=== PATIENT | male | born 1955 | race Caucasian/White ===

== ENCOUNTER 2016-05-08 07:32 | Inpatient (IN) | payer MEDICAID ==
[~2016-05-08] VITALS: Ht 175.3 cm; Wt 99.3 kg
--- NOTE | ~2016-05-08 | HEMODYNAMI ---
PATIENT:SONG MACKENZIE MARY MEDICAL RECORD: [id number] : 57 [facility] [id number] ADMISSION DATE: 05/08/16 Generatedon:05/09/201610:13 Patient name: SONG MACKENZIE Patient #: [id number] SSN: : 1955 Date of study: 05/09/2016 Page: Of Hemodynamic Procedure Report Patient Data Patient Demographics Procedure consent was obtained First Name: SONG Gender: Male Last Name: GURDEEP : 1955 [facility] Initial: MARY Age: 61 year(s) Patient #: [id number] Race: Additional ID: [id number] Contact details [address]: [address] [place] [address] ROAD State: [place] City: [place] Zip code: [address] Past Medical History Allergies Allergen Reaction Date Comments Reported Other 05/09/2016 Codeine,acetaminophen,hydrocodone allergy Admission Admission Data Admission Date: 05/08/2016 Admission Time: 10:30 Admit Source: Emergency Insurance Payor: Private department health insurance Room #: D.2123 Height (in.): 68.9 BSA: 2.17 (m2) Height (cm.): 175 BMI: 33.31 (kg/m2) Weight (lbs.): 224.87 Weight (kg.): 102 Procedure Procedure Types Cath Procedure Diagnostic Procedure C [facility] w/Coronaries Procedure Description Procedure Date Procedure Date: 05/09/2016 Procedure Start Time: 9:53 Procedure End Time: 10:11 Procedure Staff Name Function Brendan Celaya MD Performing Physician Veronica Watson RN Nurse Michael Lloyd RT Monitor Rasheed Alvarez RN Gear Finisher David Laird RT Scrub Procedure Data Cath Procedure Fluoroscopy Diagnostic fluoroscopy Total fluoroscopy Time: 6.9 time: 6.9 min min Diagnostic fluoroscopy Total fluoroscopy dose: 963 dose: 963 mGy mGy Contrast Material Contrast Material Type Amount (ml) Isovue 300 127 Entry Location Entry Primary Successful Side Size Upsize Upsize Entry Closure Mayo ccessful Closure Location (Fr) 1 (Fr) 2 (Fr) Remarks Device Remarks Radial Right 6 Fr Mechanical artery Short Compression Estimated blood loss: 5 ml Diagnostic catheters Device Type Used For End Catheter Placement Terumo 5Fr Marvin 110cm Procedure catheter Terumo 5Fr Jones 110cm Procedure catheter Cordis Infinity 5Fr AR Procedure MOD Catheter Cordis Infinity 5Fr AR 2 Procedure MOD catheter Procedure Complications No complications Procedure Medications Medication Administration Route Dosage Oxygen NC 2 l/min Lidocaine 2% added to field 20 Heparin Flush Bag added to field 2 bags (1000units/500ml NS) 0.9% NaCl I.V. 100 ml/hr Versed I.V. 1 mg Fentanyl I.V. 50 mcg Versed I.V. 1 mg Fentanyl I.V. 50 mcg Radial Cocktail I.A. 1 syringe (Verapomil 2mg/Nitro 400mcg/Heparin 1500units) Versed I.V. 1 mg Fentanyl I.V. 50 mcg Versed I.V. 1 mg Fentanyl I.V. 50 mcg Hemodynamics Rest BSA: 2.17 (m2) O2 Consumption: Estimated: 264.9 (ml/min) O2 Consumption indexed: Estimated:122.07 (ml/min/m) Heart Rate: 82 (bpm) Pressure Samples Time Site Value (mmHg) Purpose Heart Use Rate(bpm) 9:56 LV 48/1,48 Snapshot 99 Gradients Valve Time Site Site Mean SEP/DFP Peak To Heart Use 1 2 (mmHg) (sec/min) Peak Rate (mmHg) (bpm) Aortic 9:57 LV AO 65 Snapshots Pre Cath Intra NCS Post Cath Vital Signs Time Heart Resp SPO2 etCO2 SA7empg NIBP (mmHg) Rhythm Pain Sedation Rate (ipm) (%) (mmHg) (mmHg) Status Level (bpm) 9:15:37 84 14 100 0 0 134/87(102) NSR 0 (11) 10(A) , No pain 9:19:45 83 16 100 0 0 143/90(116) NSR 0 (11) 10(A) , No pain 9:24:30 84 16 99 0 0 144/81(104) NSR 0 (11) 10(A) , No pain 9:28:44 84 14 94 0 0 141/81(128) NSR 0 (11) 10(A) , No pain 9:33:53 83 19 99 0 0 153/73(106) NSR 0 (11) 10(A) , No pain 9:38:11 82 16 99 0 0 134/80(111) NSR 0 (11) 10(A) , No pain 9:42:21 89 19 99 0 0 128/81(106) NSR 0 (11) 10(A) , No pain 9:46:29 84 18 98 0 0 135/78(111) NSR 0 (11) 10(A) , No pain 9:50:39 86 16 98 0 0 137/84(102) NSR 0 (11) 10(A) , No pain 9:54:53 90 16 98 0 0 144/70(88) NSR 0 (11) 9(A) , No pain 9:59:05 88 18 96 0 0 111/78(103) NSR 0 (11) 9(A) , No pain 10:03:11 86 17 95 0 0 116/71(93) NSR 0 (11) 9(A) , No pain 10:07:18 85 16 97 0 0 127/72(89) NSR 0 (11) 9(A) , No pain 10:11:28 84 16 98 0 0 130/76(92) NSR 0 (11) 10(A) , No pain Medications Time Medication Route Dose Verified Delivered Reason Notes Effectiveness by by 9:25:59 Oxygen NC 2 l/min Brendan Buffie for local Yomi Watson RN anesthetic 9:26:12 Lidocaine 2% added 20ml Brendan Buffie for local to vial Yomi Watson RN anesthetic field 9:26:19 Heparin Flush added 2 bags Brendan Buffie used for Bag to Yomi Watson RN procedure (1000units/500ml field NS) 9:26:29 0.9% NaCl I.V. 100 Brendan Buffie Per ml/hr Yomi Watson RN physician 9:50:03 Versed I.V. 1 mg Brendan Buffie for sedation Yomi Watson RN 9:50:10 Fentanyl I.V. 50 mcg Brendan Buffie for sedation Yomi Watson RN 9:54:12 Versed I.V. 1 mg Brendan Buffie for sedation Yomi Watson RN 9:54:16 Fentanyl I.V. 50 mcg Brendan Buffie for sedation Yomi Watson RN 9:54:23 Radial Cocktail I.A. 1 Brendan Brendan for (Verapomil syringe Yomi Celaya MD vasodilation 2mg/Nitro 400mcg/Heparin 1500units) 10:00:01 Versed I.V. 1 mg Brendan Buffie for sedation Yomi Watson RN 10:00:05 Fentanyl I.V. 50 mcg Brendan Buffie for sedation Yomi Watson RN 10:07:02 Versed I.V. 1 mg Brendan Buffie for sedation Yomi Watson RN 10:07:06 Fentanyl I.V. 50 mcg Brendan Buffie for sedation Yomi Watson RN Procedure Log Time Note 8:50:03 Admit Source: Emergency department 8:50:43 Diagnostic Cath status Elective 8:50:48 Rasheed Alvarez RN sent for patient. Start room use. 8:50:50 Time tracking: Regular hours 8:50:55 Plan of Care:Hemodynamics will remain stable., Cardiac rhythm will remain stable., Comfort level will be maintained., Respiratory function will remain adequate., Patient/ family verbilizes understanding of procedure., Procedure tolerated without complication., Recovers from procedure without complications.. 9:04:27 Patient Weight : 224.87 lbs 9:04:39 Patient Height : 68.9 inches 9:05:13 Insurance Payor : Private health insurance 9:06:14 Patient allergic to Other allergyCodeine,acetaminophen,hydrocodone 9:07:04 Lab Result : Hemoglobin 13.5 g/dl 9:07:04 Lab Result : Creatinine 1.1 mg/dl 9:07:19 H&P Date Dictated: 05/08/2016 Within 30 days and on chart.. 9:07:26 Lab results completed and on chart. 9:08:38 Informed consent obtained and on chart 9:08:50 Patient received from Med II to CCL 2 Alert and oriented. Tansferred to table in Supine position. 9:08:51 Warm blankets applied, and cesar hugger turned on for patient comfort. 9:08:52 Correct patient and procedure confirmed by team. 9:08:53 ECG and BP/O2 sat monitors applied to patient. 9:08:55 Pre-procedure instructions explained to patient. 9:08:56 Pre-op teaching completed and patient verbalized understanding. 9:08:58 Family in patients room. 9:09:00 Patient NPO since Midnight. 9:09:02 Is the patient allergic to Iodine/contrast media? No. 9:09:04 Is patient on blood thinner?No 9:09:06 Patient diabetic? No. 9:14:31 Vital chart was started 9:14:33 Baseline sample Acquired. 9:14:37 Rhythm: sinus rhythm 9:14:39 Full Disclosure recording started 9:15:38 ACC The patient was administered the following blood thiners within the last 24 hours: None 9:15:42 Previous problem with sedation/anesthesia? No ? 9:15:43 Snore? Yes 9:15:44 Sleep apnea? No 9:15:45 Deviated septum? No 9:15:46 Opens mouth fully? Yes 9:15:46 Sticks out tongue? Yes 9:15:54 Airway obstruction? Yes Pneumonia 9:16:08 Dentures? No Lost Teeth 9:16:12 Pre procedure: right dorsailis pedis pulse 1+ Palpable, but thready & weak; easily obliterated 9:16:14 Modified Óscar's test Ulnar < 7 seconds 9:16:16 Patient pain scale 0/10 ?. 9:16:21 IV patent on arrival in left antecubital with 0.9% NaCl at O. 9:16:25 Right Radial & Right Groin area was prepped with chlora-prep and draped in sterile fashion 9:16:27 Alarms reviewed by R. N. 9:16:27 Sharps counted by scrub and verified by R.N. 9:16:37 ACC Patient presents with Stable Angina CCS Anginal Class 2--Slight limitation of ordinary activity. 9:18:20 ACCPatient has been prescribed/administered the following anti-anginal medication within the last 2 weeks: None 9:22:37 Use device set Radial Dx 9:22:39 Acist Manifold opened to sterile field. 9:22:39 Acist Hand Control opened to sterile field. 9:22:40 Acist Syringe opened to sterile field. 9:22:41 Cardinal Cath Pack opened to sterile field. 9:22:41 Bag Decanter opened to sterile field. 9:22:42 Terumo 6Fr Slender Glidesheath opened to sterile field. 9:22:42 St [place] 260cm J .035 wire opened to sterile field. 9:22:43 Tegaderm 4 x 4 opened to sterile field. 9:24:17 Cook 21G 4cm Radial Needle opened to sterile field. 9:25:59 Oxygen 2 l/min NC was given by Veronica Watson RN; for local anesthetic; 9:26:12 Lidocaine 2% 20ml vial added to field was given by Veronica Watson RN; for local anesthetic; 9:26:19 Heparin Flush Bag (1000units/500ml NS) 2 bags added to field was given by Veronica Watson RN; used for procedure; 9:26:29 0.9% NaCl 100 ml/hr I.V. was given by Veronica Watson RN; Per physician; 9:31:30 Zero performed for pressure channel P1 9:31:35 Zero performed for pressure channel P1 9:33:21 Physician paged 9:38:05 Baseline sample Acquired. 9:49:04 Physician arrived 9:49:06 --------ALL STOP TIME OUT------ 9:49:07 Final Timeout: patient, procedure, and site verified with staff and physician. All members of the team are in agreement. 9:49:10 Right Radial & Right Groin site verified by team. 9:49:15 Physical assessment completed. ASA score P 2 - A patient with mild systemic disease as per Brendan Celaya MD. 9:49:24 Sedation plan: IV Moderate Sedation Versed, Fentanyl 9:50:03 Versed 1 mg I.V. was given by Veronica Watson RN; for sedation; 9:50:10 Fentanyl 50 mcg I.V. was given by Veronica Watson RN; for sedation; 9:53:22 Procedure started. 9:53:26 Local anesthetic to right radial artery with Lidocaine 2% by Brendan Celaya MD.INITIAL ACCESS ONLY 9:54:12 Versed 1 mg I.V. was given by Veronica Watson RN; for sedation; 9:54:16 Fentanyl 50 mcg I.V. was given by Veronica Watson RN; for sedation; 9:54:23 Radial Cocktail (Verapomil 2mg/Nitro 400mcg/Heparin 1500units) 1 syringe I.A. was given by Brendan Celaya MD; for vasodilation; 9:54:25 A 6 Fr Short sheath was inserted into the Right Radial artery 9:54:31 J wire advanced. 9:54:42 A Terumo 5Fr Marvin 110cm catheter was advanced over the wire and used for Procedure. 9:55:07 LV hemodynamics recorded. 9:55:12 LV gram done using CHAPMAN 9:55:16 Injector settings: Ml/sec: 5, Volume: 15, 9:57:01 EF : 50 % 9:57:38 LCA angiography performed. 9:58:33 Catheter removed. unable to cannulate vessel. 9:59:06 A Terumo 5Fr Jones 110cm catheter was advanced over the wire and used for Procedure. 10:00:01 Versed 1 mg I.V. was given by Veronica Watson RN; for sedation; 10:00:05 Fentanyl 50 mcg I.V. was given by Veronica Watson RN; for sedation; 10:00:47 Catheter removed. unable to cannulate vessel. 10:01:38 A Cordis Infinity 5Fr AR MOD Catheter was advanced over the wire and used for Procedure. 10:03:10 RCA angiography performed. 10:03:47 Catheter exchanged over wire. 10:04:29 Queralttronic Launcher 6Fr EBU 3.5 guide catheter opened to sterile field. 10:04:38 6 Fr ebu 3.5 guide catheter was inserted over the wire 10:05:06 LCA angiography performed. 10:05:34 Catheter exchanged over wire. 10:05:58 A Cordis Infinity 5Fr AR 2 MOD catheter was advanced over the wire and used for Procedure. 10:07:02 Versed 1 mg I.V. was given by Veronica Watson RN; for sedation; 10:07:06 Fentanyl 50 mcg I.V. was given by Veronica Watson RN; for sedation; 10:07:46 RCA angiography performed. 10:08:45 Terumo TR Band Standard opened to sterile field. 10:08:47 Catheter removed. 10:09:01 Sheath removed intact; hemostasis achieved with Mechanical Compression to the Right Radial artery. 10:09:03 Procedure ended.(Physican Out) 10:09:07 Fluoroscopy time 06.90 minutes. 10:09:13 Fluoroscopy dose: 963 mGy 10:09:13 Flurop Dose total: 963 10:09:21 Contrast amount:Isovue 300 127ml. 10:09:23 Sharps counted by scrub and verified by R.N. 10:09:30 TR band inflated with 10cc of air. 10:09:37 Insertion/operative site no bleeding no hematoma. 10:09:46 Post right radial artery:stable, soft, clean and dry 10:09:52 Post Procedure Pulses reassessed and unchanged 10:10:01 Post-procedure physical assessment completed. ASA score P 2 - A patient with mild systemic disease as per Brendan Celaya MD. 10:10:04 Post procedure rhythm: unchanged. 10:10:06 Estimated blood loss: 5 ml 10:10:07 Post procedure instruction explained to patient.Patient verbalizes understanding. 10:10:08 Patient needs reinforcement of post procedure teaching. 10:11:08 Procedure Complication : No complications 10:11:10 Procedure and supply charges have been captured, reviewed, submitted and are correct. 10:11:11 Vital chart was stopped 10:11:12 See physician's report for complete and final results. 10:11:13 Report given to PCU. 10:11:16 Patient transfered to PCU with Stretcher. 10:11:18 Procedure ended. 10:11:18 Full Disclosure recording stopped 10:11:41 End room use (Document Last) Device Usage Item Name Manufacture Quantity Catalog Hospital Part Current Minimal Lot# / Number Charge Number Stock Stock Serial# Code Acist Acist 1 31493 149092 775184 [id number] 5 Manifold [employer] Inc Acist Hand Acist 1 74059 496035 627968 186404 5 Control Medical Systems Inc Acist Acist 1 24562 568869 026606 919334 20 Syringe Medical Systems Inc Cardinal Cardinal 1 [id number] 543086 22491 826994 5 Cath Pack Health Bag Microtek 1 2001S 469539 53779 595968 5 Dec[employer]ocomp [employer] Inc. Terumo 6Fr Terumo 1 [id number] 312603 755483 026240 [address] [place] 1 238557 408979 511325 671061 30 260cm J .035 wire Tegaderm 4 3M 1 1626W 867453 005739 519096 5 x 4 Cook 21G Cook Medical 1 Z24160 476284 196611 5 4cm Radial Needle Terumo 5Fr Terumo 1 40-7769 478720 063246 810048 5 Marvin 110cm catheter Terumo 5Fr Terumo 1 40-7232 062886 836112 337659 5 Jones 110cm catheter Cordis Cardinal 1 [id number] 240222 744146 193267 15 Infinity Health 5Fr AR MOD Catheter Medtronic Medtronic 1 [id number] 524928 03234 964615 3 Launcher 6Fr EBU 3.5 guide catheter Cordis Cardinal 1 [id number] 940118 409391 065760 20 Infinity Health 5Fr AR 2 MOD catheter Terumo TR Terumo 1 [id number] 209097 356380 110494 40 Band Standard Signature Audit [place] Stage Time Signature Unsigned Intra-Procedure 05/09/2016 Michael Lloyd 10:13:42 AM RT(R) Signatures Monitor : Michael Lloyd RT Signature : Date : Time : [place] [id number] [place] [address]
[~2016-05-08 07:32] MED LIST: ABILIFY2 MG PO; AMITRIPTYLINE H50 MG PO; AUGMENTIN 500-11 TA1 PO; BACLOFEN10 MG PO; BUPROPION XL150 MG PO; CARAFATE1 G PO; DULCOLAX5 MG PO; HYDROCODONE-APA1 TAB PO; LEVSIN/ANASP0.125 MG PO; MIRALAX527 GM PO; MOBIC7.5 MG PO; NEURONTIN 400400 MG PO; OXYCODONE HCL5 MG PO; PAMELOR 25 MG C25 MG PO; PROAIR HFA8.5 GM INH; PROTONIX40 MG PO; VALISONE 0.1 %15 GM TOPICAL; VITAMIN D5000 UNIT PO; ZOFRAN4 MG PO; ZYLOPRIM300 MG PO
[2016-05-08 08:31] LABS: BASOPHILS 0.5 % (0.0-2.0); EOSINOPHILS 4.8 % (0-7); HEMATOCRIT 42.6 % (42.0-54.0); HEMOGLOBIN 14.3 g/dL (13.5-17.5); IMMATURE GRANULOCYTES 0.2 % (0-5); LYMPHOCYTES 21.8 % (15-50); MCH 28.7 pg (26.0-34.0); MCHC 33.6 g/dL (31.0-37.0); MCV 85.4 fL (80.0-100.0); MEAN PLATELET VOLUME 11.6 fL (7.4-10.4); MONOCYTES 7.1 % (2-11); NEUTROPHILS 65.6 % (40-80); PLATELET COUNT 165 10x3/uL (130-400); RBC 4.99 10x6/uL (4.20-6.10); RDW 13.4 % (11.5-14.5); WBC 5.8 10x3/uL (4.8-10.8)
[2016-05-08 08:56] LABS: ALBUMIN 3.8 g/dL (3.4-5.0); ALKALINE PHOSPHATASE 63 U/L (46-116); ALT (SGPT) 60 U/L (10-68); CALC OSMOLALITY 276 mosm/kg (275-300); CALCIUM 9.4 mg/dL (8.5-10.1); CARBON DIOXIDE 30.7 mmol/L (21.0-32.0); CHLORIDE - SERUM 103 mmol/L (98-107); CREATININE - SERUM 1.3 mg/dL (0.6-1.3); GLUCOSE 95 mg/dL (74-106); POTASSIUM - SERUM 3.9 mmol/L (3.5-5.1); PROTEIN - SERUM 6.9 g/dL (6.4-8.2); SODIUM 139 mmol/L (136-145); UREA NITROGEN 11 mg/dL (7-18); eGFR NON AFRICAN AMERICAN 60 mL/min (90-120)
[2016-05-08 09:06] LABS: CKMB 1.4 U/L (0.0-3.6); CREATINE KINASE 111 UL (21-232)
[2016-05-08 09:07] LABS: TROPONIN-I < 0.017 ng/mL (0.000-0.060)
--- NOTE | 2016-05-08 11:00 | NUR ---
PT ARRIVED TO ROOM. ORIENTED TO ROOM/FLOOR AND SITUATION. PT ALERT AND ORIENTED. RR NONLABORED ON RA. VSS. WILL BEGIN ADMISSION WORKUP AND ORDERS.
[2016-05-08] MEDS ORDERED: FISH OIL 1,0001 CA1 PO (11:50)
[2016-05-08] MEDS ORDERED: MOBIC7.5 MG PO (11:50)
[2016-05-08 11:51] VITALS: BP 136/82; Ht 175.3 cm; Wt 99.3 kg
--- NOTE | 2016-05-08 12:01 | NUR ---
TELEMETRY APPLIED AND BEING MONITERED. CURRENTLY 70 NORMAL SINUS. L.AC PIV WIHT DRSG CDI AND SWAB CAPS IN USE. NO CURRENT NEEDS AT THIS TIME. AT BEDSIDE. WILL CPOC.
[2016-05-08 12:05] VITALS: BP 136/82
[2016-05-08 14:24] LABS: CKMB 1.1 U/L (0.0-3.6); CREATINE KINASE 83 UL (21-232); TROPONIN-I < 0.017 ng/mL (0.000-0.060)
[2016-05-08 15:55] LABS: ANION GAP 11.3 mmol/L (8-16); CALCIUM 9.4 mg/dL (8.5-10.1); CARBON DIOXIDE 27.7 mmol/L (21.0-32.0); CREATININE - SERUM 1.1 mg/dL (0.6-1.3)
[2016-05-08 16:00] VITALS: BP 125/81
[2016-05-08 16:07] LABS: BASOPHILS 0.6 % (0.0-2.0); EOSINOPHILS 3.4 % (0-7); HEMATOCRIT 40.9 % (42.0-54.0); HEMOGLOBIN 13.5 g/dL (13.5-17.5); IMMATURE GRANULOCYTES 0.4 % (0-5); LYMPHOCYTES 23.8 % (15-50); MCH 28.4 pg (26.0-34.0); MCV 85.9 fL (80.0-100.0); MEAN PLATELET VOLUME 11.4 fL (7.4-10.4); MONOCYTES 7.3 % (2-11); NEUTROPHILS 64.5 % (40-80); PLATELET COUNT 163 10x3/uL (130-400); RBC 4.76 10x6/uL (4.20-6.10); RDW 13.5 % (11.5-14.5); WBC 5.3 10x3/uL (4.8-10.8)
--- NOTE | 2016-05-08 16:17 | NUR ---
INITIATED PTS IVPB ZOSYN INFUSING VIA L.AC PIV WITH DRSG CDI AND SWAB CAPS IN USE. PT C/O CHEST PAIN DULL ACHING REQUESTING AND PROVIDED WITH PRN MORPHINE. EKG COMPLETED AND RESULTED NORMAL SINUS. PT LYING BACK IN BED RESTING QUIETLY AND DENIES ANY FURTHER NEEDS AT THIS TIME. CL IN REACH. WILL CPOC.
--- NOTE | 2016-05-08 19:03 | NUR ---
SITTING UP IN BED, AAOX3, SKIN WARM AND DRY, RESP UNLABORED, IV PATENT TO LEFT AC, DENIES NEEDS
[2016-05-08 19:56] VITALS: BP 118/71
[2016-05-08 20:46] LABS: CKMB 0.9 U/L (0.0-3.6); CREATINE KINASE 60 UL (21-232)
[2016-05-08 20:48] LABS: TROPONIN-I < 0.017 ng/mL (0.000-0.060)
[2016-05-09] VITALS: BP 106/52
--- NOTE | 2016-05-09 01:31 | NUR ---
LYING IN BED, CALL LIGHT IN REACH. WILL CONTINUE WITH PLAN OF CARE.
[2016-05-09 04:00] VITALS: BP 135/75
[2016-05-09 05:37] LABS: CKMB 0.6 U/L (0.0-3.6); CREATINE KINASE 54 UL (21-232)
--- NOTE | 2016-05-09 05:39 | NUR ---
RESTING QUIETLY IN BED, NO DISTRESS NOTED
[2016-05-09 05:40] LABS: TROPONIN-I < 0.017 ng/mL (0.000-0.060)
[2016-05-09 08:00] VITALS: BP 123/81
--- NOTE | 2016-05-09 08:38 | NUR ---
CATH CALLED TO PRE-OP PT. PREOP MEDS GIVEN. PT RESTING QUIETLY IN BED WITH FAMILY AT BEDSIDE. CL IN REACH. WILL CTM.
--- NOTE | 2016-05-09 09:09 | NUR ---
PT LEAVING FOR MIXER PIGMENT NOW. AT BEDSIDE.
--- NOTE | 2016-05-09 10:45 | NUR ---
PT BACK FROM THERAPY ASSISTANT. VSS. TR BAND TO R.RADIAL AIR INFLATED @10CC. NO S/S OF BLEEDING NOTED. INITIATED PTS IVPB ZOSYN INFUSING OVER 30 MINS VIA L.AC PIV WITH DRSG CDI AND SWAB CAPS IN USE. PT WOULD LIKE TO EAT AND WAS PROVIDED WITH FINGER FOODS. PT RESTING AND DENIES ANY CURRENT PAIN OR NEEDS. WILL CTM.
--- NOTE | 2016-05-09 10:58 | NUR ---
PT REFUSED SCDS R/T HIM BEING AMBULATORY.
[2016-05-09 12:00] VITALS: BP 120/67
--- NOTE | 2016-05-09 12:00 | NUR ---
ATTEMPTED TO REMOVE HALF OF TR BAND AIR PER PROTOCOL AFTER WAITING 1HR POST PROCEDURE. PT STARTED TO BLEED IMMEDIATELY, REPLACED AIR TO TR BAND AND WILL TRY AGAIN IN 15 MINS PER PROTOCOL.
--- NOTE | 2016-05-09 13:21 | NUR ---
SUCCESSFULLY REMOVED HALF AIR FROM R.WRIST TR BAND. 5CC OUT AND NO S/S OF BLEEDING OR HEMATOMA NOTED. WILL REMOVED REST OF AIR IN 15 MINS.
--- NOTE | 2016-05-09 14:00 | NUR ---
REMOVED OTHER HALF OF AIR FROM R.WRIST TR BAND. NO S/S OF BLEEDING OR HEMATOMA NOTED. PT LYING BACK IN BED RESTING QUIETLY. VSS. PERIPHERAL PULSES INTACT. NO FURTHER NEEDS AT THIS TIME.
--- NOTE | 2016-05-09 15:38 | NUR ---
PT REQUESTED AND WAS PROVIDED WITH PRN PAIN MED VIA L.AC PIV SITE. PT IS RESTING QUIETLY IN BED C/O HEADACHE. ALSO PROVIDED PT WITH SANDWICH TRAY REQUESTED. NO FURTHER NEEDS AT THIS TIME. R.WRIST BANDAID CDI NO S/S OF BLEEDING OR HEMATOMA NOTED. PERIPHERAL PULSES INTACT AND VSS. WILL CPOC.
[2016-05-09 16:00] VITALS: BP 151/72
--- NOTE | 2016-05-09 20:00 | NUR ---
PT RESTING IN BED. ALERT/ORIENTED. VOICING NO NEEDS. ASSESSMENT COMPLETED. SALINE LOCK TO LEFT A/C. SR PER TELEMETRY. NONLABORED RESIRATIONS ON ROOM AIR. REVIEW PLAN OF CARE.
[2016-05-09 21:18] VITALS: BP 123/72
[2016-05-10 01:12] VITALS: BP 136/74
--- NOTE | 2016-05-10 01:45 | NUR ---
REPORTS GENERALIZED PAIN AND DISCOMFORT. MEDICATED WITH MORPHINE SIVP. MONITOR RESPONSE.
--- NOTE | 2016-05-10 04:40 | NUR ---
RESTING WITH NO DISTRESS. IVF INFUSING, IV ZOSYN NOW UP AND INFUSING. CPOC.
[2016-05-10 05:01] VITALS: BP 131/75
[2016-05-10 07:26] VITALS: BP 125/90
[2016-05-10 12:04] VITALS: BP 127/79
--- NOTE | 2016-05-10 12:53 | NUR ---
PT C/O GENERALIZED PAINS ALL OVER ALONG WITH NAUSEA. PROVIDED PT WITH PRN MORPHINE AND ZOFRAN. PT LYING BACK IN BED RESTING QUIETLY WATCHING TV AND VOICED THANKS. CL IN REACH. PT DENIES ANY FURTHER NEEDS AT THIS TIME. WILL CPOC.
[2016-05-10 16:00] VITALS: BP 134/81
--- NOTE | 2016-05-10 19:16 | NUR ---
PT REQUESTED AND WAS PROVIDED WITH PRN PAIN MEDICATION. PT RESTING QUIETLY IN BED RECEIVING BREATHING TX. NO FURTHER NEEDS AT THIS TIME.
[2016-05-10 20:25] VITALS: BP 132/68
[2016-05-11 00:41] VITALS: BP 128/72
[2016-05-11 05:48] VITALS: BP 126/70
--- NOTE | 2016-05-11 07:22 | NUR ---
PT SITTING UP IN BED PIV IN LEFT FA PULLED OUT WITH CATHETER TIP INTACT. WILL RESITE. PT DENIES OTHER NEEDS WILL CONT TO MONITOR.
[2016-05-11 08:00] VITALS: BP 118/77
--- NOTE | 2016-05-11 09:52 | NUR ---
RESITED PT TO R HAND 22G X2 STICKS. SIGNED AND DATED.
[2016-05-11 12:00] VITALS: BP 127/69
[2016-05-11 13:12] LABS: BASOPHILS 0.8 % (0.0-2.0); EOSINOPHILS 6.8 % (0-7); HEMATOCRIT 42.1 % (42.0-54.0); HEMOGLOBIN 13.6 g/dL (13.5-17.5); LYMPHOCYTES 33.3 % (15-50); MCH 28.3 pg (26.0-34.0); MCHC 32.3 g/dL (31.0-37.0); MCV 87.5 fL (80.0-100.0); MONOCYTES 7.8 % (2-11); NEUTROPHILS 51.3 % (40-80); PLATELET COUNT 162 10x3/uL (130-400); RBC 4.81 10x6/uL (4.20-6.10); RDW 13.9 % (11.5-14.5)
[2016-05-11 13:26] LABS: ANION GAP 10.8 mmol/L (8-16); CALCIUM 8.9 mg/dL (8.5-10.1); CARBON DIOXIDE 29.2 mmol/L (21.0-32.0); CREATININE - SERUM 1.2 mg/dL (0.6-1.3)
[2016-05-11 16:27] VITALS: BP 122/81
--- NOTE | 2016-05-11 18:14 | NUR ---
PT SITTING UP IN BED DENIES NEEDS WILL CONT TO MONITOR.
--- NOTE | 2016-05-11 20:00 | NUR ---
PT RESING IN BED. NO DISTRESS. NONLABORED RESPIRATIONS ON ROOM AIR. SR PER TELEMETRY. SALINE LOCK TO RIGHT WRIST. CPOC.
[2016-05-11 20:15] VITALS: BP 142/81
[2016-05-12 00:23] VITALS: BP 118/81
[2016-05-12 04:20] VITALS: BP 131/84
--- NOTE | 2016-05-12 07:30 | NUR ---
RESTING QUIETLY RESP UNLABORED C/O CHEST PAIN 01/21 WILL CONTINUE TO MONITOR
[2016-05-12 08:00] VITALS: BP 131/78
--- NOTE | 2016-05-12 09:37 | NUR ---
STATES CHEST PAIN 9 AT THIS TIME
--- NOTE | 2016-05-12 10:12 | NUR ---
MEDICATED WITH 4 MG MORPHINE SIVP TORT WRIST SALINE LOCK FOR CHEST PAIN 01/21
--- NOTE | 2016-05-12 10:13 | NUR ---
PT STATES CHEST PAIN 5/10
[2016-05-12 12:00] VITALS: BP 138/94
[2016-05-12] MEDS ORDERED: AUGMENTIN 875-11 TAB PO (13:18)
--- NOTE | 2016-05-12 15:25 | NUR ---
REVIEWED DISCHARGE INSTRUCTIONS PT AND STATE UNDERSTANDING COPY GIVEN TO PER HUSBANDS REQUEST SALINE LOCK DCD TO RT WRIST WITH 22 GA IV CATHETER INTACT SITE FREE OF REDNESS OR EDEMA PT TOLERATED WELL
--- NOTE | 2016-05-12 15:30 | NUR ---
PT DISCHARGED HOME LEFT UNIT IN STABLE CONDITION WITH ALL PERSONAL BELONGINGS
--- NOTE | 2016-05-22 13:15 | EC ---
PATIENT:SONG MACKENZIE DATE OF SERVICE: 05/08/16 SEX: M MEDICAL RECORD: [id number] DATE OF : [birth year] LOCATION:D. D.212 AGE OF PATIENT: 61 ADMISSION DATE: 05/08/16 REFERRING PHYSICIAN: INTERPRETING PHYSICIAN: GUZMAN CASAS M.D. ECHOCARDIOGRAM REPORT ECHO CHARGES 4 ECHO COMPLETE CLINICAL DIAGNOSIS: DYSPNEA ECHOCARDIOGRAPHIC MEASUREMENTS (adult normal given) AC root (d.<3.7cm) 3.4 LV Septum d (<1.2 cm> 1.5 Valve Excursion 2.4 LV Septum (systole) 2.1 Left Atria (s.<4.0cm> 4.1 LVPW d(<1.2cm) 1.3 RV (d.<2.3cm) 3.3 LVPW (sytole) 1.8 LV diastole(<5.6CM) 6.0 MV E-F(>70mm/sec) LV systole 4.0 LVOT Diameter 2.1 MV exc.(>10mm) Est.ejection fraction (50-75%) Pericardial Effusion N DOPPLER: LVIT A 40.0 E 53.0 LA RVSP 33.0 LVOT 110 AOP1/2T Asc. Ao 114 RVOT 46.0 RA PA 72.0 AV Gradient Peak 5.2 AV Mean 2.5 AV Area 3.2 MV Gradient Peak 1.8 MV Mean 0.64 MV Area COMMENTS: Dye Colorist Formulator: Ankit TALAVERAOE Mangle Catcher:1 Dr. Franklin TAPE# PACS DATE OF SERVICE: 05/08/2016 REFERRING PHYSICIAN: Dr. Laxmi Simmons. INDICATION: Dyspnea. DESCRIPTION: Left ventricle is mildly dilated. Left ventricular hypertrophy is present. Systolic function is well preserved. Estimated ejection fraction is 55% to 60%. Mitral valve is structurally normal. There is mild regurgitation noted. Left atrium is mildly dilated. The aortic valve is trileaflet. There ECHOCARDIOGRAM REPORT [id number] SONG MACKENZIE is no stenosis or regurgitation seen. Right ventricle is mildly dilated. Tricuspid valve is normal. There is mild regurgitation seen. Right ventricular systolic pressure is mildly elevated at 33 mmHg. There is no pericardial effusion noted. IMPRESSION: 1. Left ventricular hypertrophy with preserved ejection fraction of 55-60%. 2. Mild mitral regurgitation. 3. Mild tricuspid regurgitation with elevated pulmonary pressures. TRANSINT:[id number] Voice Confirmation ID: [id number] DOCUMENT ID: [id number] GUZMAN CASAS M.D. at 1315 CC: [id number] DICTATION DATE: 05/09/16 1200 [place] CLOSER: 05/09/16 1616 DIS IN 05/12/16 [place] [id number] [place] [id number]
--- NOTE | 2016-05-22 13:15 | OP ---
PATIENT NAME: SONG MACKENZIE MEDICAL RECORD: [id number] :57 LOCATION:D.M2 D.2123 ADMISSION DATE:05/08/16 SURGEON: GUZMAN CASAS M.D. DATE OF OPERATION: 05/09/2016 REFERRING PHYSICIAN: Laxmi Simmons MD PROCEDURES PERFORMED: 1. Selective coronary angiography. 2. Left heart catheterization with ventriculogram. INDICATION: A 61-year-old gentleman who presents with symptoms of accelerating angina. EQUIPMENT USED: A 5-Omani EBU 3.5 guide, AR2 catheter, Marvin catheter. TECHNIQUE: A 6-Omani sheath was inserted in retrograde fashion in the right radial artery. Next, selective coronary angiography was performed in standard views using 5-Omani EBU 3.5 guide for the left main and AR2 for the right coronary artery. Left heart catheterization performed using a Marvin catheter. CORONARY ANATOMY: 1. Left main: Left main trunk is large in caliber. It gives rise to the LAD and circumflex. It is a smooth-walled vessel and angiographically normal. 2. LAD: This is a moderate caliber vessel extending to the apex. It has mild irregularities throughout its course, but nothing worse than 20%. 3. Circumflex: This vessel is large in caliber. It provides the lateral branch in mid segment. The circumflex and lateral branch are smooth-walled vessels and angiographically normal. 4. Right coronary: This vessel is large in caliber and dominant. It provides the PDA and distal segment. This vessel is smooth-walled and angiographically normal. 5. Left ventricle: Left ventricle is normal in size and function. No wall motion abnormalities are seen. Estimated ejection fraction is 55%. IMPRESSION: 1. Mild coronary artery disease, which appears unchanged from his previous cardiac catheterization. 2. Normal left ventricular function. RECOMMENDATIONS: We will continue current medical management. TRANSINT:[id number] Voice Confirmation ID: [id number] DOCUMENT ID: [id number] GUZMAN CASAS M.D. at 1315 CC: [id number] DICTATION DATE: 05/09/16 1013 CLAIM ATTORNEY: 05/09/16 1048 DIS IN 05/12/[address] [address]
== END 2016-05-12 15:30 | disposition home or self-care (01) | DRG 286 ==
LOC: D.ER 07:32 → D.M2 10:30
PROVIDERS: Emergency Medicine; Internal Medicine Cardiovascular Disease; ADMIT Family Medicine
PROC: B2151ZZ Fluoroscopy of Left Heart using Low Osmolar Contrast (ICD-10-PCS; 2016-05-09)
PROC: 4A023N7 Measurement of Cardiac Sampling and Pressure, Left Heart, Percutaneous Approach (ICD-10-PCS; 2016-05-09)
PROC: B2111ZZ Fluoroscopy of Multiple Coronary Arteries using Low Osmolar Contrast (ICD-10-PCS; principal; 2016-05-09 08:00)
DX: I25.10 Atherosclerotic heart disease of native coronary artery without angina pectoris (principal); J18.9 Pneumonia, unspecified organism; F41.9 Anxiety disorder, unspecified; I10 Essential (primary) hypertension; G89.29 Other chronic pain; M54.9 Dorsalgia, unspecified

== ENCOUNTER 2016-05-13 03:32 | Emergency (ER) | payer MEDICAID ==
[2016-05-08 11:51] VITALS: BMI 33.3
[~2016-05-13 03:32] MED LIST changes: +AUGMENTIN 875-11 TAB PO; +FISH OIL 1,0001 CA1 PO
[2016-05-13 04:21] LABS: BASOPHILS 0.9 % (0.0-2.0); HEMATOCRIT 45.8 % (42.0-54.0); HEMOGLOBIN 15.3 g/dL (13.5-17.5); IMMATURE GRANULOCYTES 0.4 % (0-5); LYMPHOCYTES 14.6 % (15-50); MCH 28.7 pg (26.0-34.0); MCHC 33.4 g/dL (31.0-37.0); MCV 85.8 fL (80.0-100.0); MEAN PLATELET VOLUME 11.1 fL (7.4-10.4); MONOCYTES 8.4 % (2-11); NEUTROPHILS 67.7 % (40-80); PLATELET COUNT 185 10x3/uL (130-400); RBC 5.34 10x6/uL (4.20-6.10); RDW 13.6 % (11.5-14.5); WBC 7.4 10x3/uL (4.8-10.8)
[2016-05-13 04:34] LABS: ALKALINE PHOSPHATASE 86 U/L (46-116); ALT (SGPT) 122 U/L (10-68); BILIRUBIN - TOTAL 0.85 mg/dL (0.2-1.3); CALC OSMOLALITY 278 mosm/kg (275-300); CALCIUM 9.4 mg/dL (8.5-10.1); CARBON DIOXIDE 28.3 mmol/L (21.0-32.0); CHLORIDE - SERUM 103 mmol/L (98-107); CREATININE - SERUM 1.2 mg/dL (0.6-1.3); GLUCOSE 120 mg/dL (74-106); PROTEIN - SERUM 7.2 g/dL (6.4-8.2); SODIUM 139 mmol/L (136-145); eGFR NON AFRICAN AMERICAN 66 mL/min (90-120)
[2016-05-13 04:43] LABS: UREA NITROGEN 13 mg/dL (7-18)
[2016-05-13 04:45] LABS: CHOL - HDL RATIO 4.3 ratio (2.3-4.9); CHOLESTEROL, TOTAL 185 mg/dL (0-200); CKMB 1.8 U/L (0.0-3.6); CREATINE KINASE 119 UL (21-232); HDL CHOLESTEROL 43 mg/dL (32-96); LDL CHOLESTEROL 120 mg/dL (0-100); LDL-HDL RATIO 2.8 ratio (1.5-3.5); TRIGLYCERIDE 113 mg/dL (30-200)
[2016-05-13 04:52] LABS: TROPONIN-I < 0.017 ng/mL (0.000-0.060)
== END 2016-05-13 06:33 | disposition home or self-care (01) ==
LOC: D.ER 03:32
PROVIDERS: Family Medicine
DX: R07.9 Chest pain, unspecified (principal); K21.9 Gastro-esophageal reflux disease without esophagitis; I10 Essential (primary) hypertension; K58.9 Irritable bowel syndrome, unspecified; I45.10 Unspecified right bundle-branch block

== ENCOUNTER 2016-07-14 10:05 | Emergency (ER) | payer MEDICAID ==
[2016-05-08 11:51] VITALS: BMI 33.3
[2016-07-14 10:59] LABS: BASOPHILS 0.9 % (0.0-2.0); HEMATOCRIT 44.8 % (42.0-54.0); HEMOGLOBIN 14.9 g/dL (13.5-17.5); IMMATURE GRANULOCYTES 0.2 % (0-5); LYMPHOCYTES 30.1 % (15-50); MCHC 33.3 g/dL (31.0-37.0); MCV 84.2 fL (80.0-100.0); MEAN PLATELET VOLUME 11.5 fL (7.4-10.4); MONOCYTES 9.8 % (2-11); PLATELET COUNT 168 10x3/uL (130-400); RBC 5.32 10x6/uL (4.20-6.10); RDW 13.2 % (11.5-14.5); WBC 4.4 10x3/uL (4.8-10.8)
[2016-07-14 11:01] LABS: ALKALINE PHOSPHATASE 87 U/L (46-116); ALT (SGPT) 65 U/L (10-68); BILIRUBIN - TOTAL 0.62 mg/dL (0.2-1.3); CALC OSMOLALITY 280 mosm/kg (275-300); CALCIUM 9.3 mg/dL (8.5-10.1); CARBON DIOXIDE 30.4 mmol/L (21.0-32.0); CHLORIDE - SERUM 105 mmol/L (98-107); CREATININE - SERUM 1.1 mg/dL (0.6-1.3); GLUCOSE 112 mg/dL (74-106); POTASSIUM - SERUM 4.1 mmol/L (3.5-5.1); PROTEIN - SERUM 7.1 g/dL (6.4-8.2); SODIUM 140 mmol/L (136-145); UREA NITROGEN 15 mg/dL (7-18); eGFR NON AFRICAN AMERICAN 72 mL/min (90-120)
[2016-07-14 11:12] LABS: CHOLESTEROL, TOTAL 166 mg/dL (0-200); CKMB 2.9 U/L (0.0-3.6); CREATINE KINASE 138 UL (21-232); HDL CHOLESTEROL 42 mg/dL (32-96); LDL CHOLESTEROL 103 mg/dL (0-100); LDL-HDL RATIO 2.5 ratio (1.5-3.5); TRIGLYCERIDE 108 mg/dL (30-200)
[2016-07-14 11:13] LABS: TROPONIN-I < 0.017 ng/mL (0.000-0.060)
== END 2016-07-14 15:06 | disposition home or self-care (01) ==
LOC: D.ER 10:05
PROVIDERS: Emergency Medicine
DX: R07.9 Chest pain, unspecified (principal); B02.9 Zoster without complications; K21.9 Gastro-esophageal reflux disease without esophagitis; K58.9 Irritable bowel syndrome, unspecified; F12.90 Cannabis use, unspecified, uncomplicated

== ENCOUNTER 2017-09-14 09:21 | Emergency (ER) | payer MEDICARE ==
[2016-05-08 11:51] VITALS: BMI 33.3
[2017-09-14 10:00] LABS: BASOPHILS 0.6 % (0-2); EOSINOPHILS 3.8 % (0-7); HEMATOCRIT 44.4 % (42.0-54.0); HEMOGLOBIN 15.3 g/dL (13.5-17.5); IMMATURE GRANULOCYTES 0.1 % (0-5); LYMPHOCYTES 21.8 % (15-50); MCH 28.5 pg (26.0-34.0); MCHC 34.5 g/dL (31.0-37.0); MCV 82.7 fL (80.0-100.0); MEAN PLATELET VOLUME 11.2 fL (7.4-10.4); MONOCYTES 5.4 % (2-11); NEUTROPHILS 68.3 % (40-80); PLATELET COUNT 162 10x3/uL (130-400); RBC 5.37 10x6/uL (4.20-6.10); RDW 13.4 % (11.5-14.5); WBC 6.8 10x3/uL (4.8-10.8)
[2017-09-14 10:17] LABS: ANION GAP 11.9 mmol/L (8-16); BILIRUBIN - TOTAL 0.91 mg/dL (0.2-1.3); CALCIUM 9.5 mg/dL (8.5-10.1); CREATININE - SERUM 1.1 mg/dL (0.6-1.3); POTASSIUM - SERUM 3.9 mmol/L (3.5-5.1); PROTEIN - SERUM 7.7 g/dL (6.4-8.2)
[2017-09-14 13:36] LABS: APPEARANCE CLEAR (CLEAR); BILIRUBIN NEGATIVE (NEGATIVE); COLOR YELLOW (YELLOW); GLUCOSE NEGATIVE (NEGATIVE); KETONE NEGATIVE (NEGATIVE); NITRITE NEGATIVE (NEGATIVE); PROTEIN NEGATIVE (NEGATIVE); SPECIFIC GRAVITY 1.015 (1.005-1.020); UROBILINOGEN NORMAL (NORMAL)
[2017-09-14 13:37] LABS: BACTERIA FEW /hpf (NONE SEEN); EPITHELIAL CELLS 0-5 /hpf (0-5); RED CELLS - URINE 0-5 /hpf (0-5); WHITE CELLS - URINE 0-5 /hpf (0-5)
== END 2017-09-14 14:42 | disposition home or self-care (01) ==
LOC: D.ER 09:21
PROVIDERS: Emergency Medicine
DX: K59.00 Constipation, unspecified (principal); K21.9 Gastro-esophageal reflux disease without esophagitis

== ENCOUNTER 2018-06-03 11:48 | Observation (INO) | payer MEDICARE, OTHER ==
[~2018-06-03] VITALS: Ht 175.3 cm; Wt 109.5 kg
--- NOTE | ~2018-06-03 | HEMODYNAMI ---
PATIENT:SONG MACKENZIE MARY MEDICAL RECORD: [id number] : 57 [facility] ADMISSION DATE: 06/03/18 Generatedon:06/06/20189:19 Patient name: SONG MACKENZIE Patient #: [id number] SSN: : 1955 Date of study: 06/06/2018 Page: Of Hemodynamic Procedure Report Patient Data Patient Demographics Procedure consent was obtained First Name: SONG Gender: Male Last Name: GURDEEP : 1955 [facility] Initial: MARY Age: 63 year(s) Patient #: [id number] Race: Additional ID: [id number] Contact details [address]: [address] [place] [address] ROAD State: [place] City: [place] Zip code: [address] Past Medical History Allergies Allergen Reaction Date Comments Reported Other 05/09/2016 Codeine,acetaminophen,hydrocodone allergy Admission Admission Data Admission Date: 06/03/2018 Admission Time: 11:48 Room #: 2115 Procedure Procedure Types Cath Procedure Diagnostic Procedure C LHC w/Coronaries Procedure Description Procedure Date Procedure Date: 06/06/2018 Procedure Start Time: 9:06 Procedure End Time: 9:19 Procedure Staff Name Function Beni Franklin MD Performing Physician Gely Ovalle RT Monitor Cb Granados RN Nurse Michael Lloyd RT Scrub Procedure Data Cath Procedure Fluoroscopy Diagnostic fluoroscopy Total fluoroscopy Time: 0.7 time: 0.7 min min Diagnostic fluoroscopy Total fluoroscopy dose: 392 dose: 392 mGy mGy Contrast Material Contrast Material Type Amount (ml) Isovue 300 44 Entry Location Entry Primary Successful Side Size Upsize Upsize Entry Closure Succes sful Closure Location (Fr) 1 (Fr) 2 (Fr) Remarks Device Remarks Radial Right 6 Fr UNABLE artery Short TO ACCESS ARTERY Femoral Right 5 Fr Exoseal artery Estimated blood loss: 5 ml Diagnostic catheters Device Type Used For End Catheter Placement MULTIPACK Pigtail 5 Fr LV Angiography catheter MULTIPACK JL 4.0 5Fr Left Coronary catheter Angiography MULTIPACK 3DRC 5Fr Right Coronary catheter Angiography Procedure Complications No complications Procedure Medications Medication Administration Route Dosage 0.9% NaCl I.V. 100 ml/hr Oxygen etCO2 Nasal cannula 2 l/min Heparin Flush Bag added to field 2 bags (1000units/500ml NS) Lidocaine 2% added to field 20 Radial Cocktail added to field 1 syringe (Verapomil 2mg/Nitro 400mcg/Heparin 1500units) Versed I.V. 2 mg Fentanyl I.V. 100 mcg Fentanyl I.V. 100 mcg Hemodynamics Rest Pre Cath Intra NCS Post Cath Vital Signs Time Heart Resp SPO2 etCO2 NIBP (mmHg) Rhythm Pain Sedation Rate (ipm) (%) (mmHg) Status Level (bpm) 9:01:43 55 20 97 24.5 140/79(104) NSR 0 (11) 10(A) , No pain 9:05:57 58 18 99 26.7 133/82(103) NSR 0 (11) 10(A) , No pain 9:10:04 60 14 97 0.7 121/85(98) NSR 0 (11) 10(A) , No pain 9:14:14 63 15 93 0 117/78(91) NSR 0 (11) 9(A) , No pain 9:18:20 63 11 90 33.5 115/86(97) NSR 0 (11) 9(A) , No pain Medications Time Medication Route Dose Verified Delivered Reason Notes Ef fectiveness by by 9:01:59 0.9% NaCl I.V. 100 Cb Cb Per ml/hr Lorigan Lorigan physician RN RN 9:02:11 Oxygen etCO2 2 l/min Cb Cb Per Nasal Lorigan Lorigan physician cannula RN RN 9:02:25 Heparin Flush added 2 bags Cb Cb used for Bag to Lorigan Lorigan procedure (1000units/500ml field RN RN NS) 9:02:39 Lidocaine 2% added 20ml Cb Cb for local to vial Lorigan Lorigan anesthetic field RN RN 9:02:52 Radial Cocktail added 1 Cb Cb used for (Verapomil to syringe Lorigan Lorigan procedure 2mg/Nitro field RN RN 400mcg/Heparin 1500units) 9:05:49 Versed I.V. 2 mg Cb Cb for Lorigan Lorigan sedation RN RN 9:05:58 Fentanyl I.V. 100 mcg Cb Vivar for Darwin Granados sedation RN RN 9:07:53 Fentanyl I.V. 100 mcg Cb Vivar for Darwin Granados sedation RN construction pit worker Log Time Note 8:33:55 Time tracking: Call back (After hours or weekends) 8:33:58 Plan of Care:Hemodynamics will remain stable., Cardiac rhythm will remain stable., Comfort level will be maintained., Respiratory function will remain adequate., Patient/ family verbilizes understanding of procedure., Procedure tolerated without complication., Recovers from procedure without complications.. 8:34:14 Cb Granados RN sent for patient. Start room use. 8:44:39 Patient received from PCU to CCL 1 Alert and oriented. Tansferred to table in Supine position. 8:44:39 Warm blankets applied, and cesar hugger turned on for patient comfort. 8:44:40 Correct patient and procedure confirmed by team. 8:44:41 Signed procedure consent form obtained from patient. 8:44:42 ECG and BP/O2 sat monitors applied to patient. 8:44:43 Full Disclosure recording started 9:00:36 Vital chart was started 9:00:40 Rhythm: sinus rhythm 9:00:51 H&P Date Dictated: 06/05/2018 Within 30 days and on chart.. 9:00:53 Pre-procedure instructions explained to patient. 9:00:53 Pre-op teaching completed and patient verbalized understanding. 9:00:56 Family in patients room. 9:00:57 Patient NPO since Midnight. 9:00:59 Is the patient allergic to Iodine/contrast media? No. 9:01:02 Is patient on blood thinner?No 9:01:04 Patient diabetic? No. 9:01:41 Previous problem with sedation/anesthesia? No ? 9:01:59 0.9% NaCl 100 ml/hr I.V. was administered by Cb Granados RN; Per physician; 9:02:11 Oxygen 2 l/min etCO2 Nasal cannula was administered by Cb Granados RN; Per physician; 9:02:25 Heparin Flush Bag (1000units/500ml NS) 2 bags added to field was administered by Cb Granados RN; used for procedure; 9:02:39 Lidocaine 2% 20ml vial added to field was administered by Cb Granados RN; for local anesthetic; 9:02:52 Radial Cocktail (Verapomil 2mg/Nitro 400mcg/Heparin 1500units) 1 syringe added to field was administered by Cb Granados RN; used for procedure; 9:04:01 Snore? No 9:04:09 Sleep apnea? No 9:04:11 Deviated septum? No 9:04:12 Opens mouth fully? Yes 9:04:13 Sticks out tongue? Yes 9:04:14 Airway obstruction? No ? 9:04:17 Dentures? No ? 9:04:19 Pre procedure: right dorsailis pedis pulse 2+ Normal; easily identifiable; not easily obliterated 9:04:21 Modified Óscar's test Ulnar < 7 seconds 9:04:31 Patient pain scale 0/10 ?. 9:04:39 IV patent on arrival in left forearm with 0.9% NaCl at O. 9:04:43 Lab results completed and on chart. 9:04:47 Right Radial & Right Groin area was prepped with chlora-prep and draped in sterile fashion 9:04:48 Alarms reviewed by R. N. 9:04:48 Sharps counted by scrub and verified by R.N. 9:04:50 Final Timeout: patient, procedure, and site verified with staff and physician. All members of the team are in agreement. 9:04:53 Right Radial site verified by team. 9:04:56 Fire Safety Assessment: A--An alcohol-based skin anteseptic being used preoperatively., C--Open oxygen or nitrous oxide is being used., D--An ESU, laser, or fiber-optic light is being used. 9:04:59 Physical assessment completed. ASA score P 2 - A patient with mild systemic disease as per Beni Franklin MD. 9:05:02 Sedation plan: IV Moderate Sedation Medication:Versed, Fentanyl 9:05:47 Zero performed for pressure channel P1 9:05:49 Versed 2 mg I.V. was administered by Cb Granados RN; for sedation; 9:05:52 Procedure started. 9:05:58 Fentanyl 100 mcg I.V. was administered by Cb Granados RN; for sedation; 9:06:24 Local anesthetic to right radial artery with Lidocaine 2% by Beni Franklin MD.INITIAL ACCESS ONLY 9:06:34 A 6 Fr Short sheath was inserted into the Right Radial arteryUNABLE TO ACCESS ARTERY 9:06:44 ACIST Syringe (24285) opened to sterile field. 9:06:45 Medline Cath Pack ([id number]) opened to sterile field. 9:06:45 Bag Decanter (2002S) opened to sterile field. 9:06:46 DIAGNOSTIC WIRE .035 260cm J wire (880808) opened to sterile field. 9:06:46 ACIST Hand Control (05155) opened to sterile field. 9:06:47 ACIST Manifold (64083) opened to sterile field. 9:06:47 Tegaderm 4 x 4 (1626W) opened to sterile field. 9:06:48 MBrace Wrist Support ([id number]) opened to sterile field. 9:06:49 SHEATH 6FR Slender (80-6011) opened to sterile field. 9:07:53 Fentanyl 100 mcg I.V. was administered by Cb Granados RN; for sedation; 9:09:39 Use device set Multipack Set 9:09:45 SHEATH 5FR [place] (BLK841) opened to sterile field. 9:09:46 DIAGNOSTIC Multipack 5Fr catheter set (EX6068) opened to sterile field. 9:10:29 Local anesthetic to right femoral artery with Lidocaine 2% by Beni Franklin MD.ADDITIONAL ACCESS 9:12:10 A 5 Fr sheath was inserted into the Right Femoral artery 9:12:15 A MULTIPACK Pigtail 5 Fr catheter was advanced over the wire and used for LV Angiography. 9:12:16 LV gram done using CHAPMAN 9:12:19 Injector settings: Ml/sec: 10, Volume: 20, 9:12:21 Catheter removed. 9:12:27 A MULTIPACK JL 4.0 5Fr catheter was advanced over the wire and used for Left Coronary Angiography. 9:13:21 Catheter removed. 9:13:32 A MULTIPACK 3DRC 5Fr catheter was advanced over the wire and used for Right Coronary Angiography. 9:14:06 Catheter removed. 9:14:10 EXOSEAL 5Fr (EX500) opened to sterile field. 9:14:20 Sheath removed intact; hemostasis achieved with Exoseal to the Right Femoral artery. 9:14:22 Procedure ended.(Physican Out) 9:14:47 Fluoroscopy time 00.70 minutes. 9:14:50 Flurop Dose total: 392 9:14:50 Fluoroscopy dose: 392 mGy 9:14:56 Contrast amount:Isovue 300 44ml. 9:14:57 Sharps counted by scrub and verified by R.N. 9:14:59 Insertion/operative site no bleeding no hematoma. 9:15:02 Post-op/insertion site Right Femoral artery dressed using a 4 x 4 and Tegaderm. 9:15:05 Post right femoral artery:stable, clean and dry 9:15:15 Post Procedure Pulses reassessed and unchanged 9:15:17 Post-procedure physical assessment completed. ASA score P 2 - A patient with mild systemic disease as per Beni Franklin MD. 9:15:20 Post procedure rhythm: unchanged. 9:15:22 Estimated blood loss: 5 ml 9:15:23 Post procedure instruction explained to patient.Patient verbalizes understanding. 9:15:24 Patient needs reinforcement of post procedure teaching. 9:16:06 Procedure Complication : No complications 9:16:16 Tegaderm 4 x 4 (1626W) opened to sterile field. 9:16:23 See physician's report for complete and final results. 9:16:53 Procedure and supply charges have been captured, reviewed, submitted and are correct. 9:18:52 Vital chart was stopped 9:18:54 Report given to PCU. 9:18:58 Patient transfered to PCU with Bed. 9:19:08 Procedure ended. 9:19:08 Full Disclosure recording stopped 9:19:12 End room use (Document Last) Device Usage Item Name Manufacture Quantity Catalog Hospital Part Current Minimal Lot# / Number Charge Number Stock Stock Serial# Code ACIST Acist 1 82537 695864 763311 503190 20 Syringe Medical (92055) Systems Inc Medline Medline 1 [id number] 350106 79012 685392 5 Cath Pack ([id number]) Bag Microtek 1 830380 09730 059293 5 Decanter Medical Inc. () DIAGNOSTIC [place] 1 738631 592589 749103 365930 30 WIRE .035 260cm J wire (632362) ACIST Hand Acist 1 30083 094065 368347 864372 5 Control Medical (40232) Systems Inc ACIST Acist 1 17009 005525 532575 834850 5 Manifold Medical (32781) Systems Inc Tegaderm 4 3M 2 1626W 709562 913956 032794 5 x 4 (1626W) MBrace Advanced 1 140-0250-00 257060 32960 258625 5 Wrist Vascular Support Dynamics ([id number]) SHEATH 6FR Terumo 1 [id number] 160545 616615 100966 5 Slender (80-1060) SHEATH 5FR Terumo 1 IZD787 419906 706737 682783 5 [place] (FNE234) DIAGNOSTIC Cardinal 1 KW6199 898122 14186 061537 30 Multipack Health 5Fr catheter set (CK1648) MULTIPACK Cardinal 1 329172 5 Pigtail 5 Health Fr catheter MULTIPACK Cardinal 1 173099 5 JL 4.0 5Fr Health catheter MULTIPACK Cardinal 1 271256 5 3DRC 5Fr Health catheter EXOSEAL 5Fr Cardinal 1 EX500 101030 504472 835773 10 (EX500) Health Signature Audit [place] Stage Time Signature Unsigned Intra-Procedure 06/06/2018 Gely 9:19:26 AM Counts RT(R) Signatures Monitor : Gely Signature : Counts RT Date : Time : [place] [address] [place] [address]
--- NOTE | 2018-06-03 12:30 | NUR ---
PATIENT VIA WC BY HOSPITAL PERSONNEL TO ROOM. DIRECT ADMIT FROM DR FALL OFFICE. ORIENTED PATIENT TO ROOM AND CALL LIGHT. ADMISSION HISTORY AND ASSESSMENT DONE. VS GOOD. 22 G IV PLACED TO LT FOREARM. WILL CONTINUE WITH PLAN OF CARE. SR UP X 2 BED IN LOW POSITION AND CALL LIGHT IN REACH.
[2018-06-03 13:44] LABS: CREATINE KINASE 62 UL (21-232); TROPONIN-I < 0.017 ng/mL (0.000-0.060)
[2018-06-03 13:55] VITALS: BP 128/85; BMI 33.1
[2018-06-03 14:35] VITALS: Ht 175.3 cm; Wt 109.5 kg
[2018-06-03 15:03] VITALS: BP 123/89
--- NOTE | 2018-06-03 16:15 | NUR ---
CALLED TO PATIENTS ROOM. PATIENT SITTING UP IN BED PATIENT COMPLAINS OF PAIN IN MID LOWER CHEST/ UPPER ABDOMEN. PATIENT STATES THAT PAIN LEVEL IS A 10. DENIES SOB, NO NAUSEA, OR PAIN RADIATED TO JAW OR ARMS. VSS. PER JUN ORDER, GAVE PATIENT MORPHINE 0.2 MG IV . AFTER 15 MINUTES, PAIN STATES THAT PAIN IS 8-9 STILL. GAVE NITRO 0.4 MG SL X 1. ADDITIONAL 2 NITRO Q 5 MINUTES. PATIENT STATES FEELS BETTER AND PAIN LEVEL AT A 3. [place] WITH CARDIOLOGY ON FLOOR. INFORMED FELIX OF ABOVE AND NO NEW ORDERS RECIEVED. WILL CONTINUE TO MONITOR CLOSELY.
--- NOTE | 2018-06-03 17:30 | NUR ---
PATIENT LAYING IN BED ON BACK WITH EYES CLOSED AND BREATHING EVENLY. WILL CONTINUE TO MONITOR. SR UP X 2 BED IN LOW POSITION AND CALL LIGHT IN REACH.
[2018-06-03 19:25] LABS: BASOPHILS 0.6 % (0-2); EOSINOPHILS 5.5 % (0-7); HEMATOCRIT 43.7 % (42.0-54.0); HEMOGLOBIN 14.7 g/dL (13.5-17.5); IMMATURE GRANULOCYTES 0.2 % (0-5); LYMPHOCYTES 26.1 % (15-50); MCH 28.1 pg (26.0-34.0); MCHC 33.6 g/dL (31.0-37.0); MCV 83.4 fL (80.0-100.0); MEAN PLATELET VOLUME 11.3 fL (7.4-10.4); NEUTROPHILS 59.6 % (40-80); PLATELET COUNT 161 10x3/uL (130-400); RBC 5.24 10x6/uL (4.20-6.10); RDW 13.7 % (11.5-14.5); WBC 6.4 10x3/uL (4.8-10.8)
[2018-06-03 20:03] LABS: ALBUMIN 3.6 g/dL (3.4-5.0); ALKALINE PHOSPHATASE 85 U/L (46-116); ALT (SGPT) 167 U/L (10-68); BILIRUBIN - TOTAL 0.55 mg/dL (0.2-1.3); CALC OSMOLALITY 283 mosm/kg (275-300); CALCIUM 8.6 mg/dL (8.5-10.1); CARBON DIOXIDE 27.5 mmol/L (21.0-32.0); CHLORIDE - SERUM 104 mmol/L (98-107); CKMB 0.9 U/L (0.0-3.6); CREATINE KINASE 56 UL (21-232); GLUCOSE 108 mg/dL (74-106); POTASSIUM - SERUM 4.1 mmol/L (3.5-5.1); PROTEIN - SERUM 6.4 g/dL (6.4-8.2); SODIUM 141 mmol/L (136-145); TROPONIN-I < 0.017 ng/mL (0.000-0.060); UREA NITROGEN 17 mg/dL (7-18)
[2018-06-03 20:07] LABS: eGFR NON AFRICAN AMERICAN 80 mL/min (90-120)
--- NOTE | 2018-06-03 20:18 | NUR ---
RESUMED CARE OF PT, LYING IN BED RESPIRATIONS EVEN AND UNLABORED ON ROOM AIR. LEFT FOREARM SALINE LOCKED. 66 SR ON TELEMETRY. CALL LIGHT IN REACH. SEE NURSE ASSESSMENT.
[2018-06-03 22:04] VITALS: BP 108/74
[2018-06-04 01:16] LABS: CKMB 0.9 U/L (0.0-3.6); CREATINE KINASE 49 UL (21-232)
[2018-06-04 01:17] VITALS: BP 98/56
[2018-06-04 01:17] LABS: TROPONIN-I < 0.017 ng/mL (0.000-0.060)
[2018-06-04 06:12] LABS: BASOPHILS 0.7 % (0-2); EOSINOPHILS 8.5 % (0-7); HEMATOCRIT 43.9 % (42.0-54.0); HEMOGLOBIN 14.9 g/dL (13.5-17.5); IMMATURE GRANULOCYTES 0.2 % (0-5); MCH 28.3 pg (26.0-34.0); MCHC 33.9 g/dL (31.0-37.0); MCV 83.5 fL (80.0-100.0); MEAN PLATELET VOLUME 11.5 fL (7.4-10.4); MONOCYTES 8.7 % (2-11); NEUTROPHILS 54.9 % (40-80); PLATELET COUNT 164 10x3/uL (130-400); RBC 5.26 10x6/uL (4.20-6.10); RDW 13.7 % (11.5-14.5); WBC 5.9 10x3/uL (4.8-10.8)
[2018-06-04 06:15] VITALS: BP 108/63
[2018-06-04 06:36] LABS: CALC OSMOLALITY 282 mosm/kg (275-300); CALCIUM 8.8 mg/dL (8.5-10.1); CARBON DIOXIDE 25.9 mmol/L (21.0-32.0); CHLORIDE - SERUM 104 mmol/L (98-107); GLUCOSE 100 mg/dL (74-106); MAGNESIUM - SERUM 1.9 mg/dL (1.8-2.4); POTASSIUM - SERUM 3.9 mmol/L (3.5-5.1); SODIUM 141 mmol/L (136-145); UREA NITROGEN 19 mg/dL (7-18); eGFR NON AFRICAN AMERICAN 80 mL/min (90-120)
--- NOTE | 2018-06-04 07:10 | NUR ---
REPORT RECIEVED FROM RE RECORDING MIXER. PATIENT LAYING ON RT SIDE IN BED. EYES CLOSED AND BREATHING EVNELY. VSS. WILL CONTINUE WITH PLAN OF CARE. SR UP X 2 BED IN LOW POSTION AND CALL LIGHT IN REACH.
[2018-06-04 08:00] VITALS: BP 112/84
--- NOTE | 2018-06-04 10:55 | NUR ---
PATIENT AMBULATED WITHOUT ASSISTANCE AROUND UNIT X 1. TOLERATED WELL. WILL CONTINUE TO MONITOR.
[2018-06-04 11:38] VITALS: BP 109/78
[2018-06-04 14:54] VITALS: BP 112/80
--- NOTE | 2018-06-04 14:58 | MORECARE ---
CASE MANAGEMENT DISCHARGE SUMMARY PATIENT: SONG MACKENZIE MARY UNIT: [id number] ADM DATE: 06/03/18 AGE: 63 : 57 SEX: M ROOM/BED: D.2115 AUTHOR: TRISTEN TORO PHYSICIAN: REFERRING PHYSICIAN: JOHN FALL MD DATE OF SERVICE: 06/04/18 Discharge Plan Patient Name: SONG MACKENZIE [facility] [facility] 1955 Planned Disposition: Anticipated Discharge Date: Discharge Date: Expected LOS: Initial Reviewer: [email or web address] Initial Review Date: 06/03/2018 Generated: 06/04/18 3:57 pm Coverage Notice Reviewer: [email or web address] - Lacy Ivory Notice Issued Date-Time: 06/04/2018 14:35 Notice Type: Medicare Outpatient Observation Notice Notice Delivered To: Patient Relationship to Patient: Self Loss Claim Clerk Name: Delivery Method: HAND - Hand Delivered Ce Days: Prior Verbal Notification: Recipient Understood Notice: Yes Recipient Signature: Yes Med Rec Note Co-signed by Attending: Coverage Notice Comment: Patient Name: SONG MACKENZIE Page 20492 at 1458 All edits/amendments must be made on the electronic document DICTATION DATE: 06/04/181456 SALES BRANCH MANAGER: TRICIA 06/04/181456 RPT#: [id number] DC DATE: STATUS: ADM IN [facility] [address] [place] [address] END OF REPORT
--- NOTE | 2018-06-04 15:43 | NUR ---
PATIENT AMBULATED IN HALLWAY . TOLERATED WELL. DENIES CHEST PAIN OR SOB. WILL CONTINUE TO MONITOR.
--- NOTE | 2018-06-04 19:25 | NUR ---
RESPIRATIONS EVEN AND UNLABORED ON ROOM AIR. 57 SB ON TELEMETRY. LEFT FOREARM SALINE LOCKED. NO NEEDS NOTED AT THIS TIME. CALL LIGHT IN REACH. SEE NURSE ASSESSMENT.
[2018-06-04 20:00] VITALS: BP 96/63
[2018-06-05] VITALS (7 sets, daily range): BP systolic 108–131; BP diastolic 60–88
--- NOTE | 2018-06-05 04:00 | NUR ---
SHEET ROCK TAPER HELPER AT BEDSIDE TO OBTAIN VITALS, CALL LIGHT IN REACH. WILL CONTINUE WITH PLAN OF CARE.
[2018-06-05 05:18] LABS: HEMATOCRIT 44.4 % (42.0-54.0); HEMOGLOBIN 15.3 g/dL (13.5-17.5); LYMPHOCYTES 24.7 % (15-50); MCH 28.5 pg (26.0-34.0); MCHC 34.5 g/dL (31.0-37.0); MCV 82.8 fL (80.0-100.0); MEAN PLATELET VOLUME 11.1 fL (7.4-10.4); NEUTROPHILS 62.3 % (40-80); PLATELET COUNT 140 10x3/uL (130-400); RBC 5.36 10x6/uL (4.20-6.10); RDW 13.8 % (11.5-14.5); WBC 5.8 10x3/uL (4.8-10.8)
[2018-06-05 05:20] LABS: CALCIUM 8.6 mg/dL (8.5-10.1); CARBON DIOXIDE 25.8 mmol/L (21.0-32.0); CREATININE - SERUM 1.1 mg/dL (0.6-1.3); MAGNESIUM - SERUM 1.8 mg/dL (1.8-2.4); POTASSIUM - SERUM 3.8 mmol/L (3.5-5.1)
--- NOTE | 2018-06-05 07:15 | NUR ---
ASSESSMENT DONE. DENIES NEEDS.
--- NOTE | 2018-06-05 10:39 | NUR ---
RESTS IN BED WITH CALL LIGHT IN REACH. BILAT SCDS ON. TELEMETRY SR 69. WILL CONT. PLAN OF CARE.
--- NOTE | 2018-06-05 11:43 | NUR ---
REVIEWED AND AGREE WITH ASSESMENT.
--- NOTE | 2018-06-05 17:01 | NUR ---
WITHOUT CHANGES OR DISTRESS NOTED AT THIS TIME. DENIES NEEDS.
--- NOTE | 2018-06-05 21:42 | NUR ---
INITAIL ROUNDS COMPLETED AT 1905 HRS. PT DENIED ANY DISCOMFORT. ASSESSMENT COMPLETED AT 2039 RHS. VSS. IV TO LFA SL. IV PATENT. LUNGS CTA. SR PER CM HR 63. PM MEDS GIVEN. [facility] EXPLAINED TO PT. STATED UNDERSTANDING. PT CURENTLY WATCHIONG TV. SR UP X2,CALL LIGHT WITHIN REACH.
--- NOTE | 2018-06-05 23:54 | NUR ---
PT HAS C/O CP 10/21. IV TO LFA INFILTRATED. DC'D WITH CATHETER INTACT. NEW IV STARTED #20 TO L WRIST WITH ATTEMPT X1. MORPHINE 2MG SIVP GIVEN. S RUP X2, CALL LIGHT WITHIN REACH.
[2018-06-06 01:44] LABS: BASOPHILS 0.8 % (0-2); EOSINOPHILS 8.7 % (0-7); HEMATOCRIT 44.4 % (42.0-54.0); HEMOGLOBIN 15.4 g/dL (13.5-17.5); IMMATURE GRANULOCYTES 0.2 % (0-5); LYMPHOCYTES 31.4 % (15-50); MCH 28.8 pg (26.0-34.0); MCHC 34.7 g/dL (31.0-37.0); MCV 83.1 fL (80.0-100.0); MEAN PLATELET VOLUME 11.4 fL (7.4-10.4); MONOCYTES 10.4 % (2-11); NEUTROPHILS 48.5 % (40-80); PLATELET COUNT 152 10x3/uL (130-400); RBC 5.34 10x6/uL (4.20-6.10); RDW 13.5 % (11.5-14.5); WBC 6.2 10x3/uL (4.8-10.8)
[2018-06-06 01:47] LABS: CALC OSMOLALITY 279 mosm/kg (275-300); CALCIUM 8.9 mg/dL (8.5-10.1); CARBON DIOXIDE 25.4 mmol/L (21.0-32.0); CHLORIDE - SERUM 103 mmol/L (98-107); GLUCOSE 106 mg/dL (74-106); MAGNESIUM - SERUM 2.1 mg/dL (1.8-2.4); POTASSIUM - SERUM 4.2 mmol/L (3.5-5.1); SODIUM 139 mmol/L (136-145); UREA NITROGEN 19 mg/dL (7-18); eGFR NON AFRICAN AMERICAN 80 mL/min (90-120)
--- NOTE | 2018-06-06 02:26 | NUR ---
PT RESTING WITH EYES CLOSED. RESP EVEN AND REGULAR. SR UP X2, CALL LIGHT WITHIN REACH.
[2018-06-06 03:55] VITALS: BP 119/73
--- NOTE | 2018-06-06 04:13 | NUR ---
PT RESTING WITH EYES CLOSED. RESP EVEN AND REGULAR. SR UP X2, CALL LIGHT WITHIN REACH.
--- NOTE | 2018-06-06 06:42 | NUR ---
VSS THROUGHOUT NIGHT. SR/SB PER CM. PT STATED IV MORPHINE CONTROLLED PAIN. NEEDS MET; WILL CONTINUE TO MONITOR.
--- NOTE | 2018-06-06 07:46 | NUR ---
ROUNDING DONE WITH PATIENT RESTING WITH EYES CLOSED. RESP ARE EVEN. ON HEART MONITOR SHOWING SB, HR 56. ON ROOM AIR. LEFT WRIST PIV SEEN WITH SALINE LOCK. ON EP, K+ IS 4.2. NO ORAL SUPPLEMENTS NEEDED TODAY. NPO FOR HEART CATH, PERMITS ARE SIGNED.
--- NOTE | 2018-06-06 08:40 | NUR ---
TO SEO ANALYST VIA BED.
[2018-06-06 09:17] VITALS: BP 117/77
--- NOTE | 2018-06-06 09:35 | NUR ---
0930-RETURNS FROM BINDERY MACHINE OPERATOR WITH DRESSING TO RIGHT GROIN, C/D/I, PPP AND STRONG. TO LAY FLAT X 2 HOURS.
--- NOTE | 2018-06-06 11:45 | NUR ---
PATIENT SET TO 30 DEGREES WITH HEAD OF BED. NO BLEEDING SEEN TO RIGHT GROIN.
--- NOTE | 2018-06-06 15:32 | NUR ---
VERBAL AND WRITTEN DISCHARGE INSTRUCTIONS GIVEN TO PATIENT AND . SALINE LOCK REMOVED WITH CATH TIP INTACT. DISCHARGED HOME VIA WHEELCHAIR.
--- NOTE | 2018-06-09 11:18 | OP ---
PATIENT NAME: SONG MACKENZIE MEDICAL RECORD: [id number] :57 LOCATION:D.M2 D.2115 ADMISSION DATE:06/03/18 SURGEON: IRENE DONALDSON MD DATE OF OPERATION: 06/06/2018 DATE OF SERVICE: 06/06/2018 PROCEDURES: 1. Left heart catheterization. 2. Selective coronary angiography. 3. Left ventriculogram. INDICATION: Chest pain compatible with angina. PROCEDURE IN DETAIL: After informed consent was obtained and after a detailed description of risks, benefits as well as alternative therapies, the patient elected to proceed with angiogram and heart catheterization. The right femoral area was prepped and draped in normal sterile fashion. Right femoral artery was cannulated via modified Seldinger technique with placement of 5-Micronesian sheath. All catheters exchanged through this sheath. FINDINGS: Left ventriculogram was performed in standard 30-degree CHAPMAN view, reveals good cardiac wall motion throughout all segments. Overall ejection fraction estimated at 60%. SELECTIVE CORONARY ANGIOGRAPHY: Left main, left anterior descending, left circumflex, and right coronary artery are all smooth-walled vessels with no angiographic evidence of coronary artery disease. OVERALL IMPRESSION: 1. No angiographic evidence of coronary artery disease. 2. Normal left heart pressures. 3. Normal left ventricular systolic function. Chest pain is noncardiac in etiology. No further cardiac workup needs to be ascertained. TRANSINT:[id number] Voice Confirmation ID: [id number] DOCUMENT ID: [id number] IRENE DONALDSON MD at 1118 CC: [id number] DICTATION DATE: 06/06/18917 DOT ETCHER: 06/06/18924 DIS IN 06/06/18 [place] [address] [place] [id number]
--- NOTE | 2018-06-10 09:03 | MORECARE ---
CASE MANAGEMENT DISCHARGE SUMMARY PATIENT: SONG MACKENZIE MARY UNIT: [id number] ADM DATE: 06/03/18 AGE: 63 : 57 SEX: M ROOM/BED: D.2115 AUTHOR: TRISTEN TORO PHYSICIAN: REFERRING PHYSICIAN: JOHN FALL MD DATE OF SERVICE: 06/10/18 Discharge Plan Patient Name: SONG MACKENZIE [facility] [facility] 1955 Planned Disposition: Home Anticipated Discharge Date: 06/06/18 Discharge Date: 06/06/2018 Expected LOS: 3 Initial Reviewer: [email or web address] Initial Review Date: 06/03/2018 Generated: 06/10/18 10:02 am Coverage Notice Reviewer: [email or web address] Anjel Ivory Notice Issued Date-Time: 06/04/2018 14:35 Notice Type: Medicare Outpatient Observation Notice Notice Delivered To: Patient Relationship to Patient: Self Clinical Care Manager Name: Delivery Method: HAND - Hand Delivered Ce Days: Prior Verbal Notification: Recipient Understood Notice: Yes Recipient Signature: Yes Med Rec Note Co-signed by Attending: Coverage Notice Comment: Last DP export: 06/04/18 1:57 p Patient Name: SONG MACKENZIE Page 17708 at 0903 All edits/amendments must be made on the electronic document DICTATION DATE: 06/10/18901 QA AUTOMATION ARCHITECT: TRICIA 06/10/18901 RPT#: [id number] DC DATE:06/06/18 STATUS: DIS IN [id number] [place] [address] END OF REPORT
== END 2018-06-06 15:36 | disposition home or self-care (01) ==
LOC: D.M2 11:48 → OBSVTIME 11:48 → D.M2 06-06 15:36
PROVIDERS: Family Medicine; ADMIT Family Medicine
DX: R07.89 Other chest pain (principal); I10 Essential (primary) hypertension; K21.9 Gastro-esophageal reflux disease without esophagitis; F41.9 Anxiety disorder, unspecified

== ENCOUNTER 2018-06-21 17:15 | Inpatient (IN) | payer MEDICARE, OTHER ==
[~2018-06-21] VITALS: Ht 175.3 cm; Wt 102.7 kg
--- NOTE | 2018-06-21 19:02 | NUR ---
PT C/O CHEST PAIN. AMILCAR LADLER NOTIFIED. NO FURTHER ORDERS RECEIVED AT THIS TIME. PT REPORT TO BHUMIKA PARRA.
[2018-06-21 19:21] LABS: BASOPHILS 0.3 % (0-2); HEMATOCRIT 46.9 % (42.0-54.0); HEMOGLOBIN 16.4 g/dL (13.5-17.5); IMMATURE GRANULOCYTES 0.2 % (0-5); LYMPHOCYTES 7.8 % (15-50); MCV 82.9 fL (80.0-100.0); MEAN PLATELET VOLUME 11.5 fL (7.4-10.4); NEUTROPHILS 85.7 % (40-80); PLATELET COUNT 178 10x3/uL (130-400); RBC 5.66 10x6/uL (4.20-6.10); RDW 13.6 % (11.5-14.5); WBC 10.5 10x3/uL (4.8-10.8)
[2018-06-21 19:45] LABS: ALBUMIN 4.5 g/dL (3.4-5.0); ALKALINE PHOSPHATASE 76 U/L (46-116); ALT (SGPT) 38 U/L (10-68); BILIRUBIN - TOTAL 1.39 mg/dL (0.2-1.3); CALC OSMOLALITY 277 mosm/kg (275-300); CALCIUM 9.7 mg/dL (8.5-10.1); CARBON DIOXIDE 27.4 mmol/L (21.0-32.0); CHLORIDE - SERUM 100 mmol/L (98-107); CREATININE - SERUM 1.2 mg/dL (0.6-1.3); GLUCOSE 95 mg/dL (74-106); POTASSIUM - SERUM 3.9 mmol/L (3.5-5.1); PROTEIN - SERUM 7.7 g/dL (6.4-8.2); SODIUM 139 mmol/L (136-145); UREA NITROGEN 13 mg/dL (7-18); eGFR NON AFRICAN AMERICAN 65 mL/min (90-120)
[2018-06-21 19:50] LABS: TROPONIN-I < 0.017 ng/mL (0.000-0.060)
[2018-06-21 20:06] VITALS: BP 157/116
--- NOTE | 2018-06-21 20:13 | NUR ---
PT TEMP 104.1, EDP NOTIFIED
--- NOTE | 2018-06-21 21:14 | NUR ---
PT UPDATED ON PLAN OF CARE. NO S/S OF ACUTE DISTRESS NOTED. PT RETURNED FROM CT. NS INFUSION RESTARTED.
[2018-06-21 21:25] VITALS: BP 126/81
--- NOTE | 2018-06-21 21:25 | NUR ---
PT TEMP ASSESSED, PT TEMP 103.3. EDP NOTIFIED. VERBAL ORDER FOR TYLENOL 1 GRAM GIVEN.
--- NOTE | 2018-06-21 21:43 | NUR ---
PT SPOUSE NO LONGER AT BEDSIDE, PERLA: [phone] (HOME), (CELL)
[2018-06-21 23:05] VITALS: BP 103/68; BMI 33.4
[2018-06-21] MEDS ORDERED: CLARITIN 10 MG10 MG PO (23:32)
[2018-06-21] MEDS ORDERED: MOBIC7.5 MG PO (23:33)
[2018-06-21] MEDS ORDERED: SEROQUEL100 MG PO (23:33)
[2018-06-21] MEDS ORDERED: NEURONTIN 400400 MG PO (23:35)
[2018-06-21] MEDS ORDERED: REMERON30 MG PO (23:36)
[2018-06-21] MEDS ORDERED: FLOMAX0.4 MG PO (23:36)
[2018-06-22 01:00] VITALS: BP 93/65
[2018-06-22 04:00] VITALS: BP 121/55
[2018-06-22 07:54] VITALS: BP 117/68
[2018-06-22 09:15] VITALS: Ht 175.3 cm; Wt 102.7 kg
[2018-06-22 10:11] LABS: BASOPHILS 0.2 % (0-2); EOSINOPHILS 1.5 % (0-7); HEMATOCRIT 42.1 % (42.0-54.0); HEMOGLOBIN 14.4 g/dL (13.5-17.5); IMMATURE GRANULOCYTES 0.2 % (0-5); MCH 28.5 pg (26.0-34.0); MCHC 34.2 g/dL (31.0-37.0); MCV 83.2 fL (80.0-100.0); MEAN PLATELET VOLUME 11.9 fL (7.4-10.4); MONOCYTES 7.2 % (2-11); NEUTROPHILS 82.9 % (40-80); PLATELET COUNT 145 10x3/uL (130-400); RBC 5.06 10x6/uL (4.20-6.10); RDW 13.9 % (11.5-14.5); WBC 8.5 10x3/uL (4.8-10.8)
[2018-06-22 10:34] LABS: ANION GAP 10.6 mmol/L (8-16); CALCIUM 8.5 mg/dL (8.5-10.1); CREATININE - SERUM 1.2 mg/dL (0.6-1.3); POTASSIUM - SERUM 3.6 mmol/L (3.5-5.1)
--- NOTE | 2018-06-22 10:56 | NUR ---
URINE SPECIMEN COLLECTED AND SENT TO LAB ORDERED. PTS FAMILY AT BEDSIDE REQUESTING "WHY CANT HE HAVE ANYTHING FOR PAIN, THEY GAVE HIM MORPHINE LAST TIME" UPON ASSESSING HIS PAIN HE WILL ONLY STATE "I FEEL LIKE I WAS HIT BY A TRAIN IT HURTS EVERYWHERE" PT WONT DESCRIBE THE PAIN OR TELL ME WHERE IT IS OR HOW IT FEELS. I HAVE PROVIDED PT WITH HIS HOME MEDICATIONS AND TYLENOL HOWEVER PT STILL STATES HIS PAIN IS NOT CONTROLLED AND ITS "UNBEARABLE" UPON ASKING THE WHERE HIS PAIN IS OR DOES HE NORMALLY HURT SHE STATES "YES HE HAS FIBROMYALGIA AND HIS PAIN IS ALWAYS BAD, HE NEEDS SOMETHING NOW" WILL DISCUSS WITH PRIMARY AND CONTINUE TO TRY TO HELP MUCH I CAN. CL IN REACH, BED IN LOWEST, SIDE RAILS X2. WILL CTM.
[2018-06-22 11:17] VITALS: BP 142/68
[2018-06-22 11:58] LABS: APPEARANCE CLEAR (CLEAR); BILIRUBIN NEGATIVE (NEGATIVE); COLOR DK YELLOW (YELLOW); GLUCOSE NEGATIVE (NEGATIVE); KETONE NEGATIVE (NEGATIVE); NITRITE NEGATIVE (NEGATIVE); PROTEIN NEGATIVE (NEGATIVE); UROBILINOGEN NORMAL (NORMAL)
--- NOTE | 2018-06-22 13:50 | NUR ---
WHILE IN PT ROOM RESTARTING PT IVF, PT STATED THAT ,"PT WAS HERE A FEW DAYS AGO AND HE DID NOT GET A SHOWER OR HAVE HIS BED LINENS CHANGED THE ENTIRE TIME SO I DON'T KNOW WHAT WE ARE GOING TO DO." NURSE ASKED PT IF HE WAS ABLE TO GET UP AND USE THE BATHROOM BY HIMSELF. PT RESPONDED, "YES I CAN." NURSE ASKED PT IF HE WOULD LIKE A SHOWER NOW AND WE CAN BRING HIM SUPPLIES NOW. PT RESPONDED, "NO I DO NOT WANT ONE NOW." ADVISED PT AND HIS THAT ONCE PT IS READY TO TAKE A SHOWER TO PRESS CALL LIGHT AND LET STAFF KNOW SO THAT WE CAN PROVIDE HIM WITH SUPPLIES. PT VERBALIZES UNDERSTANDING
--- NOTE | 2018-06-22 14:58 | NUR ---
CHECKING ON PT. HE IS VERY IRRITABLE AND GROUCHY. UPON ASSESSING HIS PAIN HE STATES "ITS STILL THERE AND NOTHING IS HELPING" PT IS WANTING IV MEDICATION AND HE STATES THAT IS WHAT WILL HELP HOWEVER MARY PROVIDED TEACHING AND SO HAS PRIMARY BUT PT IS ADMAMENT ABOUT IT. WILL CTM. NO CURRENT NEEDS.
[2018-06-22 15:28] VITALS: BP 124/71
--- NOTE | 2018-06-22 20:27 | NUR ---
PATIENT RESTING IN BED WITH NO S/S OF DISTRESS AND DENIES NEEDS AT THIS TIME. ADMINISTERED MEDS PER ORDERS. ENCOURAGED THE PATIENT TO CALL IF HE HAS NEEDS. WILL CONTINUE TO MONITOR.
[2018-06-22 21:01] VITALS: BP 137/68
[2018-06-23 02:02] VITALS: BP 116/60
[2018-06-23 08:08] VITALS: BP 107/53
[2018-06-23 08:09] LABS: BASOPHILS 0.2 % (0-2); HEMATOCRIT 38.2 % (42.0-54.0); HEMOGLOBIN 12.8 g/dL (13.5-17.5); IMMATURE GRANULOCYTES 0.2 % (0-5); LYMPHOCYTES 13.8 % (15-50); MCH 27.9 pg (26.0-34.0); MCHC 33.5 g/dL (31.0-37.0); MCV 83.2 fL (80.0-100.0); MONOCYTES 9.4 % (2-11); NEUTROPHILS 74.4 % (40-80); PLATELET COUNT 127 10x3/uL (130-400); RBC 4.59 10x6/uL (4.20-6.10); RDW 13.9 % (11.5-14.5); WBC 8.6 10x3/uL (4.8-10.8)
[2018-06-23 08:13] LABS: ANION GAP 10.4 mmol/L (8-16); CALCIUM 8.3 mg/dL (8.5-10.1); CARBON DIOXIDE 27.4 mmol/L (21.0-32.0); CREATININE - SERUM 1.1 mg/dL (0.6-1.3); POTASSIUM - SERUM 3.8 mmol/L (3.5-5.1)
--- NOTE | 2018-06-23 09:14 | NUR ---
AM MEDS GIVEN AT THIS TIME. PT A/O X4, RESP EVEN AND NONLABORED ON 2L. LT AC INFUSING NS AT 75CC/HR. PT HAD THIS NURSE ADJUST HIS TERMOSTAT. DENIES ANY NEEDS AT THIS TIME. AT BEDSIDE, CALL LIGHT IN REACH, NAD NOTED, WILL CONTINUE PLAN OF CARE.
[2018-06-23 12:39] VITALS: BP 107/48
[2018-06-23 16:13] VITALS: BP 102/66
--- NOTE | 2018-06-23 19:20 | NUR ---
PATIENT SITTING UP IN BED. NO SIGNS OF DISTRESS. DENIES HAVING ANY NEEDS AT THIS TIME. BED IN LOWEST POSITION. SIDE RAILS UP. CALL LIGHT IN REACH. CONTINUE PLAN OF CARE.
--- NOTE | 2018-06-23 19:31 | NUR ---
PT SITTING UP IN BED. CALL LIGHT IN REACH. PT DENIES NEEDS OR PAIN. BED IN LOW. SIDE RAILS X2. RESP EVEN AND UNLABORED. IV RUNNING NS AT 75CC/HR. WILL CONTINUE TO MONITOR.
[2018-06-23 20:00] VITALS: BP 93/51
--- NOTE | 2018-06-23 22:49 | NUR ---
PT LYING IN BED WATCHING TV. CALL LIGHT IN REACH. DENIES NEEDS OR PAIN. BED IN LOW.
[2018-06-24] VITALS: BP 99/57
--- NOTE | 2018-06-24 00:05 | NUR ---
RECEIVED REPORT. LYING IN BED ON RIGHT SIDE EYES CLOSED RESTING. RR EVEN AND UNLABORED. LEFT AC NS @ 75ML/HR PATENT. CALL LIGHT WITHIN REACH, FALL PRECAUTIONS IN PLACE
--- NOTE | 2018-06-24 02:18 | NUR ---
LYING IN BED ON LEFT SIDE EYES CLOSED RESTING. CONTINUES ON 2L VIA NC. RR EVEN AND UNLABORED. CALL LIGHT WITHIN REACH, FALL PRECAUTIONS IN PLACE. WILL CONTINUE TO MONITOR
[2018-06-24 04:00] VITALS: BP 109/69
--- NOTE | 2018-06-24 05:52 | NUR ---
LYING IN BED ON LEFT SIDE EYES CLOSED RESTING. RR EVEN AND UNLABORED. CONTINUES ON 2L VIA NC. LEFT AC NS 75ML/HR PATENT NO S/S OF INFILTRATION. CALL LIGHT WITHIN REACH, FALL PRECAUTIONS IN PLACE
[2018-06-24 07:32] LABS: BASOPHILS 0.7 % (0-2); EOSINOPHILS 6.9 % (0-7); HEMATOCRIT 38.4 % (42.0-54.0); HEMOGLOBIN 12.8 g/dL (13.5-17.5); IMMATURE GRANULOCYTES 0.2 % (0-5); LYMPHOCYTES 24.5 % (15-50); MCH 27.9 pg (26.0-34.0); MCHC 33.3 g/dL (31.0-37.0); MCV 83.8 fL (80.0-100.0); MONOCYTES 10.5 % (2-11); NEUTROPHILS 57.2 % (40-80); PLATELET COUNT 147 10x3/uL (130-400); RBC 4.58 10x6/uL (4.20-6.10); RDW 14.1 % (11.5-14.5)
[2018-06-24 07:39] LABS: CALC OSMOLALITY 283 mosm/kg (275-300); CALCIUM 8.4 mg/dL (8.5-10.1); CARBON DIOXIDE 29.8 mmol/L (21.0-32.0); CHLORIDE - SERUM 108 mmol/L (98-107); GLUCOSE 99 mg/dL (74-106); POTASSIUM - SERUM 4.1 mmol/L (3.5-5.1); SODIUM 143 mmol/L (136-145); UREA NITROGEN 11 mg/dL (7-18); eGFR NON AFRICAN AMERICAN 80 mL/min (90-120)
[2018-06-24 08:02] LABS: WBC 5.9 10x3/uL (4.8-10.8)
--- NOTE | 2018-06-24 09:00 | NUR ---
PT RESTING IN BED, AM MEDICATIONS GIVEN ORDERED. PT TOLERATED WELL. SHIFT ASSESSMENT PERFORMED. NOTICED THAT PT HAS AN ORDER FOR DISCHARGE. NOTIFIED PT, PT AGREES. DENIES PAIN AT THIS TIME, DENIES NEEDS AT THIS TIME, WILL CONT TO FOLLOW PLAN OF CARE
[2018-06-24] MEDS ORDERED: OMNICEF300 MG PO (09:02)
[2018-06-24] MEDS ORDERED: ZITHROMAX500 MG PO (09:02)
[2018-06-24] MEDS ORDERED: ALBUTEROL SULF8.5 GM INH (09:04)
--- NOTE | 2018-06-24 09:43 | MORECARE ---
CASE MANAGEMENT DISCHARGE SUMMARY PATIENT: SONG MACKENZIE MARY UNIT: [id number] ADM DATE: 06/21/18 AGE: 63 : 57 SEX: M ROOM/BED: D.1206 AUTHOR: TRISTEN TORO PHYSICIAN: REFERRING PHYSICIAN: EVAN JACOBO MD DATE OF SERVICE: 06/24/18 Discharge Plan Patient Name: SONG MACKENZIE Facility: [facility]:[place] : 1955 Planned Disposition: Home Anticipated Discharge Date: 06/24/18 Discharge Date: Expected LOS: 3 Initial Reviewer: [email or web address] Initial Review Date: 06/24/2018 Generated: 06/24/18 10:43 am DCPIA - Discharge Planning Initial Assessment Updated by [email or web address]: Mira Pemberton on 06/24/18 9:42 am * Is the patient Alert and Oriented? Yes * PCP FALL * Pharmacy [facility] * Preadmission Environment Home with Family * ADLs Independent * Equipment None * List name and contact numbers for known caregivers / representatives who currently or will assist patient after discharge: RENÉ ESTRELLA, * Verbal permission to speak to the caregivers and representatives has been obtained from the patient. Yes * Community resources currently utilized None * Additional services required to return to the preadmission environment? No * Can the patient safely return to the preadmission environment? Yes * Has this patient been hospitalized within the prior 30 days at any hospital? Yes Coverage Notice Reviewer: [id number] - Mira Pemberton Notice Issued Date-Time: 06/24/2018 9:39 Notice Type: IM Discharge Notice Notice Delivered To: Patient Relationship to Patient: Manager Monitoring Name: Delivery Method: HAND - Hand Delivered Ce Days: Prior Verbal Notification: Recipient Understood Notice: Yes Recipient Signature: Yes Med Rec Note Co-signed by Attending: Coverage Notice Comment: Patient Name: SONG MACKENZIE Page [phone] at 0943 All edits/amendments must be made on the electronic document DICTATION DATE: 06/24/18942 GEOLOGICAL TECHNICAL OFFICER: TRICIA 06/24/1843 RPT#: [id number] DC DATE: STATUS: ADM IN [facility] [address] [facility] [place] [address] END OF REPORT
--- NOTE | 2018-06-24 09:51 | MORECARE ---
CASE MANAGEMENT DISCHARGE SUMMARY PATIENT: SONG MACKENZIE MARY UNIT: [id number] ADM DATE: 06/21/18 AGE: 63 : 57 SEX: M ROOM/BED: D.1206 AUTHOR: TRISTEN TORO PHYSICIAN: REFERRING PHYSICIAN: EVAN JACOBO MD DATE OF SERVICE: 06/24/18 Discharge Plan Patient Name: SONG MACKENZIE Facility: [facility]:[place] : 1955 Planned Disposition: Home Anticipated Discharge Date: 06/24/18 Discharge Date: Expected LOS: 3 Initial Reviewer: [email or web address] Initial Review Date: 06/24/2018 Generated: 06/24/18 10:51 am Comments DCP- Discharge Planning Updated by [email or web address]: Mira Pemberton on 06/24/18 8:[address] Patient Name: SONG MACKENZIE Admission Status: ER Accout number: [id number] Admission Date: 06-21-2018 : 1955 Admission Diagnosis:SHORTNESS OF BREATH Attending: EVAN JACOBO Current LOS: 3 Anticipated DC Date: 06-24-2018 Planned Disposition: Home Primary Insurance: [employer] CHOICE PPO MCR ADVANT Discharge Planning Comments: CM MET WITH PATIENT ABOUT DC PLANNING/NEEDS. PATIENT DENIES NEEDS AND STATES HIS PERLA WILL PICK HIM UP AT DC. IMM SERVED. CM WILL FOLLOW AND ASSIST NEEDED WITH DC PLANNING/NEEDS. Bank Note Designer: Mira Pemberton DCPIA - Discharge Planning Initial Assessment Updated by [email or web address]: Mira Pemberton on 06/24/18 9:42 am * Is the patient Alert and Oriented? Yes * PCP FALL * Pharmacy [facility] * Preadmission Environment Home with Family * ADLs Independent * Equipment None * List name and contact numbers for known caregivers / representatives who currently or will assist patient after discharge: SAMEER, , * Verbal permission to speak to the caregivers and representatives has been obtained from the patient. Yes * Community resources currently utilized None * Additional services required to return to the preadmission environment? No * Can the patient safely return to the preadmission environment? Yes * Has this patient been hospitalized within the prior 30 days at any hospital? Yes Coverage Notice Reviewer: [id number] - Mira Pemberton Notice Issued Date-Time: 06/24/2018 9:39 Notice Type: IM Discharge Notice Notice Delivered To: Patient Relationship to Patient: Fabric Inspector Name: Delivery Method: HAND - Hand Delivered Ce Days: Prior Verbal Notification: Recipient Understood Notice: Yes Recipient Signature: Yes Med Rec Note Co-signed by Attending: Coverage Notice Comment: Last DP export: 06/24/18 8:43 a Patient Name: SONG MACKENZIE Page 18612 at 0951 All edits/amendments must be made on the electronic document DICTATION DATE: 06/24/18949 JOB CAPTAIN: TRICIA 06/24/1850 RPT#: [id number] DC DATE: STATUS: ADM IN [facility] [address] [place] [address] END OF REPORT
--- NOTE | 2018-06-24 11:29 | NUR ---
DISCHARGE INSTRUCTIONS REVIEWED WITH PT AND ALL QUESTIONS ANSWERED. PIV REMOVED WITH CATHETER TIP INTACT. ASSISTED PT TO FRONT OF HOSPITAL VIA AMBULATION. PT IS WAITING FOR HIS AT THE FRONT.
--- NOTE | 2018-06-24 14:09 | MORECARE ---
CASE MANAGEMENT DISCHARGE SUMMARY PATIENT: SONG MACKENZIE MARY UNIT: [id number] ADM DATE: 06/21/18 AGE: 63 : 57 SEX: M ROOM/BED: D.1206 AUTHOR: TRISTEN TORO PHYSICIAN: REFERRING PHYSICIAN: EVAN JACOBO MD DATE OF SERVICE: 06/24/18 Discharge Plan Patient Name: SONG MACKENZIE Facility: [facility]:[place] : 1955 Planned Disposition: Home Anticipated Discharge Date: 06/24/18 Discharge Date: 06/24/2018 Expected LOS: 3 Initial Reviewer: [id number] Initial Review Date: 06/24/2018 Generated: 06/24/18 3:09 pm Comments DCP- Discharge Planning Updated by [email or web address]: Mira Pemberton on 06/24/18 8:[address] Patient Name: SONG MACKENZIE Admission Status: ER Accout number: [id number] Admission Date: 06-21-2018 : 1955 Admission Diagnosis:SHORTNESS OF BREATH Attending: EVAN JACOBO Current LOS: 3 Anticipated DC Date: 06-24-2018 Planned Disposition: Home Primary Insurance: [employer] CHOICE PPO MCR ADVANT Discharge Planning Comments: CM MET WITH PATIENT ABOUT DC PLANNING/NEEDS. PATIENT DENIES NEEDS AND STATES HIS PERLA WILL PICK HIM UP AT DC. IMM SERVED. CM WILL FOLLOW AND ASSIST NEEDED WITH DC PLANNING/NEEDS. Residential Treatment Specialist: Mira Pemberton DCPIA - Discharge Planning Initial Assessment Updated by [email or web address]: Mira Pemberton on 06/24/18 9:42 am * Is the patient Alert and Oriented? Yes * PCP FALL * Pharmacy [facility] * Preadmission Environment Home with Family * ADLs Independent * Equipment None * List name and contact numbers for known caregivers / representatives who currently or will assist patient after discharge: SAMEER, , * Verbal permission to speak to the caregivers and representatives has been obtained from the patient. Yes * Community resources currently utilized None * Additional services required to return to the preadmission environment? No * Can the patient safely return to the preadmission environment? Yes * Has this patient been hospitalized within the prior 30 days at any hospital? Yes Coverage Notice Reviewer: [email or web address] Anjel Pemberton Notice Issued Date-Time: 06/24/2018 9:39 Notice Type: IM Discharge Notice Notice Delivered To: Patient Relationship to Patient: Production Line Manager Name: Delivery Method: HAND - Hand Delivered Ce Days: Prior Verbal Notification: Recipient Understood Notice: Yes Recipient Signature: Yes Med Rec Note Co-signed by Attending: Coverage Notice Comment: Last DP export: 06/24/18 8:51 a Patient Name: SONG MACKENZIE Page [phone] at 1409 All edits/amendments must be made on the electronic document DICTATION DATE: 06/24/188 MOUNTAIN OR GLACIER GUIDE: TRICIA 06/24/18 1408 RPT#: [id number] DC DATE:06/24/18 STATUS: DIS IN [facility] [address] [place] [address] END OF REPORT
== END 2018-06-24 12:43 | disposition home or self-care (01) | DRG 194 ==
LOC: D.ER 17:15 → D.M3 22:20
PROVIDERS: Emergency Medicine; ADMIT Internal Medicine Nephrology; ATTEND Internal Medicine Nephrology
DX: J18.1 Lobar pneumonia, unspecified organism (principal); F33.1 Major depressive disorder, recurrent, moderate; I10 Essential (primary) hypertension; G43.909 Migraine, unspecified, not intractable, without status migrainosus; M54.9 Dorsalgia, unspecified; G89.29 Other chronic pain; F41.9 Anxiety disorder, unspecified; G62.9 Polyneuropathy, unspecified; M79.7 Fibromyalgia; K21.9 Gastro-esophageal reflux disease without esophagitis; Z87.891 Personal history of nicotine dependence

== ENCOUNTER → 2018-06-25 09:16 | Outpatient (CLI) | payer MEDICARE, OTHER ==
[2018-06-22 09:15] VITALS: BMI 33.4
[~2018-06-25 09:16] MED LIST changes: +ALBUTEROL SULF8.5 GM INH; +CLARITIN 10 MG10 MG PO; +FLOMAX0.4 MG PO; +OMNICEF300 MG PO; +REMERON30 MG PO; +SEROQUEL100 MG PO; +ZITHROMAX500 MG PO
== END | disposition home or self-care (01) ==
LOC: D.OPS 09:16
PROVIDERS: ATTEND Surgery
DX: K21.9 Gastro-esophageal reflux disease without esophagitis (principal)

== ENCOUNTER → 2018-07-13 09:11 | Outpatient (CLI) | payer MEDICARE, OTHER ==
[2018-06-22 09:15] VITALS: BMI 33.4
[~2018-07-13 09:11] MED LIST changes: +MIRALAX17 GM PO; -MIRALAX527 GM PO; +OXYCODONE HCL5 M1 PO; +ZOFRAN ODT4 MG/UDTAB PO
== END | disposition home or self-care (01) ==
LOC: D.RAD 09:11
PROVIDERS: ATTEND Surgery
DX: K21.9 Gastro-esophageal reflux disease without esophagitis (principal)

== ENCOUNTER 2018-07-15 08:44 | Inpatient (IN) | payer MEDICARE, OTHER ==
[~2018-07-15] VITALS: Ht 175.3 cm; Wt 103.9 kg
[~2018-07-15 08:44] MED LIST changes: -OXYCODONE HCL5 M1 PO; -ZOFRAN ODT4 MG/UDTAB PO
[2018-07-15 09:08] LABS: BASOPHILS 0.6 % (0-2); EOSINOPHILS 6.2 % (0-7); HEMATOCRIT 46.2 % (42.0-54.0); HEMOGLOBIN 15.7 g/dL (13.5-17.5); IMMATURE GRANULOCYTES 0.2 % (0-5); LYMPHOCYTES 24.2 % (15-50); MCH 28.6 pg (26.0-34.0); MCV 84.2 fL (80.0-100.0); MEAN PLATELET VOLUME 10.4 fL (7.4-10.4); MONOCYTES 9.5 % (2-11); NEUTROPHILS 59.3 % (40-80); RBC 5.49 10x6/uL (4.20-6.10); RDW 13.8 % (11.5-14.5); WBC 6.3 10x3/uL (4.8-10.8)
[2018-07-15 09:14] LABS: PLATELET COUNT 193 10x3/uL (130-400)
[2018-07-15 09:21] LABS: ANION GAP 11.9 mmol/L (8-16); CALCIUM 9.4 mg/dL (8.5-10.1); CARBON DIOXIDE 29.4 mmol/L (21.0-32.0); CREATININE - SERUM 1.2 mg/dL (0.6-1.3); POTASSIUM - SERUM 4.3 mmol/L (3.5-5.1)
[2018-07-15 09:44] VITALS: BP 120/71; Ht 175.3 cm; Wt 103.9 kg
--- NOTE | 2018-07-15 13:02 | NUR ---
CARE ASSUMED FROM DOUGLAS BECERRIL RN
--- NOTE | 2018-07-15 14:02 | NUR ---
REC'D TO ROOM 2234 AT THIS TIME FROM RECOVERY. AWAKE AND ALERT. RESP EVEN AND UNLABORED WITH NO DISTRESS NOTED. CAN EXPRESS NEEDS AND WANTS. HAS 4 LAP SITES INCISIONS NOTED. IV NOTED TO RIGHT WRIST. ASSESSMENT COMPLETED. C/L IN REACH AT BEDSIDE. FAMILY PRESENT AT THIS TIME.
[2018-07-15 14:04] VITALS: BP 139/81
[2018-07-15 18:07] VITALS: BP 144/78
[2018-07-15 20:00] VITALS: BP 118/74
--- NOTE | 2018-07-15 20:00 | NUR ---
ALERT SITTIGN UP IN BED, DENIES PAIN AT THIS TIME, ABD INCISIONS X 4 INTACT WITH STERI STRIPS, SEE SHIFT ASSESSMENT, HAS NOT VOIDED INSTRUCTED NEED TO TO TRY TO USE URINAL, STATES DOES NOT FEEL NEED TO GO RIGHT NOW BUT WILL TRY LATER, CALL RYAN GRIMES
[2018-07-16 04:00] VITALS: BP 119/67
[2018-07-16 06:43] LABS: BASOPHILS 0.1 % (0-2); EOSINOPHILS 0 % (0-7); HEMATOCRIT 39.7 % (42.0-54.0); HEMOGLOBIN 13.5 g/dL (13.5-17.5); IMMATURE GRANULOCYTES 0.2 % (0-5); LYMPHOCYTES 8.2 % (15-50); MCH 28.2 pg (26.0-34.0); MCV 83.1 fL (80.0-100.0); MONOCYTES 4.4 % (2-11); NEUTROPHILS 87.1 % (40-80); PLATELET COUNT 187 10x3/uL (130-400); RBC 4.78 10x6/uL (4.20-6.10); RDW 13.8 % (11.5-14.5)
[2018-07-16 06:44] LABS: WBC 9.2 10x3/uL (4.8-10.8)
[2018-07-16 06:56] LABS: ALBUMIN 3.4 g/dL (3.4-5.0); ANION GAP 13.3 mmol/L (8-16); BILIRUBIN - TOTAL 0.58 mg/dL (0.2-1.3); CALCIUM 8.5 mg/dL (8.5-10.1); CARBON DIOXIDE 25.7 mmol/L (21.0-32.0); CREATININE - SERUM 1.1 mg/dL (0.6-1.3); PROTEIN - SERUM 6.5 g/dL (6.4-8.2)
--- NOTE | 2018-07-16 08:00 | NUR ---
MORNING ASSESSMENT COMPLETE. SEE ASSESSMENT FLOWSHEET FOR FURTHER DETAILS. PT LYING IN BED AAO X4 TO PERSON, PLACE, TIME, AND SITUATION. DENIES NEEDS AT THIS TIME. CL IN REACH. SIDE RAILS UP X3 FOR PT SAFETY. BED IN LOWEST POSITION.
[2018-07-16 09:14] VITALS: BP 120/61
[2018-07-16] MEDS ORDERED: OXYCODONE HCL5 M1 PO (09:54)
[2018-07-16] MEDS ORDERED: ZOFRAN ODT4 MG/UDTAB PO (09:54)
[2018-07-16 12:27] VITALS: BP 125/62
--- NOTE | 2018-07-20 16:57 | MORECARE ---
CASE MANAGEMENT DISCHARGE SUMMARY PATIENT: SONG MACKENZIE MARY UNIT: [id number] ADM DATE: 07/15/18 AGE: 63 : 57 SEX: M ROOM/BED: D.2234 AUTHOR: TRISTEN TORO PHYSICIAN: REFERRING PHYSICIAN: BRUCE EVANS MD DATE OF SERVICE: 07/20/18 Discharge Plan Patient Name: SONG MACKENZIE [facility] [facility] 1955 Planned Disposition: Anticipated Discharge Date: Discharge Date: 07/16/2018 Expected LOS: 0 Initial Reviewer: [email or web address] Initial Review Date: 07/20/2018 Generated: 07/20/18 5:56 pm Patient Name: SONG MACKENZIE Page [phone] at 1657 All edits/amendments must be made on the electronic document DICTATION DATE: 07/20/181655 MARKET RESEARCH ANALYST: TRICIA 07/20/181655 RPT#: [id number] DC DATE:07/16/18 STATUS: DIS IN [facility] [address] [place] [address] END OF REPORT
== END 2018-07-16 14:02 | disposition home or self-care (01) | DRG 328 ==
LOC: D.OPS 08:44 → D.PAN 12:15 → D.OPS 12:15 → D.MS 13:34 → D.OPS 13:45 → D.MS 13:46
PROVIDERS: Anesthesiology; ADMIT Surgery; ATTEND Surgery
PROC: 0DV44ZZ Restriction of Esophagogastric Junction, Percutaneous Endoscopic Approach (ICD-10-PCS; principal; 2018-07-15 12:15)
PROC: 0BQT4ZZ Repair Diaphragm, Percutaneous Endoscopic Approach (ICD-10-PCS; 2018-07-15 12:15)
DX: K44.9 Diaphragmatic hernia without obstruction or gangrene (principal); K21.9 Gastro-esophageal reflux disease without esophagitis; M79.7 Fibromyalgia; M10.9 Gout, unspecified

== ENCOUNTER 2018-09-16 08:28 | Inpatient (IN) | payer MEDICARE, OTHER ==
[~2018-09-16] VITALS: Ht 175.3 cm; Wt 90.3 kg
[~2018-09-16 08:28] MED LIST changes: +OXYCODONE HCL5 M1 PO; +ZOFRAN ODT4 MG/UDTAB PO
[2018-09-16 08:50] LABS: BASOPHILS 0.3 % (0-2); HEMATOCRIT 48.2 % (42.0-54.0); IMMATURE GRANULOCYTES 0.3 % (0-5); MCH 28.8 pg (26.0-34.0); MCHC 35.3 g/dL (31.0-37.0); MCV 81.6 fL (80.0-100.0); MEAN PLATELET VOLUME 11.1 fL (7.4-10.4); MONOCYTES 5.8 % (2-11); NEUTROPHILS 84.6 % (40-80); PLATELET COUNT 173 10x3/uL (130-400); RBC 5.91 10x6/uL (4.20-6.10); RDW 14.4 % (11.5-14.5); WBC 11.5 10x3/uL (4.8-10.8)
[2018-09-16 09:06] VITALS: BP 105/46
[2018-09-16 09:07] LABS: ANION GAP 18.5 mmol/L (8-16); BILIRUBIN - TOTAL 0.93 mg/dL (0.2-1.3); CARBON DIOXIDE 22.3 mmol/L (21.0-32.0); CREATININE - SERUM 1.2 mg/dL (0.6-1.3); POTASSIUM - SERUM 3.8 mmol/L (3.5-5.1); PROTEIN - SERUM 8.8 g/dL (6.4-8.2)
[2018-09-16 11:03] VITALS: BP 114/60
[2018-09-16 14:05] VITALS: BP 134/81
[2018-09-16 15:13] VITALS: BP 138/83; BMI 31.0
[2018-09-16 20:00] VITALS: BP 133/76
--- NOTE | 2018-09-16 21:20 | NUR ---
RESP EVEN AND UNALBORED. NO DISTRESS NOTED. IV TO LAC INTACT WITHOUT REDNESS OR TAMI ANOTED. NG TO LEFT NARE IN PLACE. CL IN REACH
[2018-09-17 04:00] VITALS: BP 133/79
--- NOTE | 2018-09-17 04:53 | NUR ---
I have reviewed this patient and I concur with the Shift Assessment completed by the Licensed Practical Nurse today this shift.
[2018-09-17 05:03] LABS: BASOPHILS 0.5 % (0-2); EOSINOPHILS 9.3 % (0-7); HEMOGLOBIN 13.7 g/dL (13.5-17.5); IMMATURE GRANULOCYTES 0.2 % (0-5); LYMPHOCYTES 18.9 % (15-50); MCHC 33.4 g/dL (31.0-37.0); MEAN PLATELET VOLUME 11.2 fL (7.4-10.4); MONOCYTES 8.2 % (2-11); NEUTROPHILS 62.9 % (40-80); PLATELET COUNT 143 10x3/uL (130-400); RDW 14.6 % (11.5-14.5)
[2018-09-17 05:05] LABS: MCV 83.7 fL (80.0-100.0); WBC 5.8 10x3/uL (4.8-10.8)
[2018-09-17 05:18] LABS: CALC OSMOLALITY 283 mosm/kg (275-300); CALCIUM 8.8 mg/dL (8.5-10.1); CHLORIDE - SERUM 108 mmol/L (98-107); GLUCOSE 109 mg/dL (74-106); SODIUM 142 mmol/L (136-145); UREA NITROGEN 12 mg/dL (7-18); eGFR NON AFRICAN AMERICAN 80 mL/min (90-120)
[2018-09-17 05:19] LABS: CARBON DIOXIDE 28.3 mmol/L (21.0-32.0); POTASSIUM - SERUM 4.4 mmol/L (3.5-5.1)
--- NOTE | 2018-09-17 09:08 | NUR ---
PT RESTING IN BED. "FEELING ANXIOUS" CHEMISTRY TECHNOLOGIST VISITING WITH PT AND AWARE. NO S/S OF ACUTE DISTRESS. CL IN PLACE.
[2018-09-17 09:29] VITALS: BP 118/77
[2018-09-17 13:35] VITALS: BP 144/78
[2018-09-17 15:46] VITALS: Ht 175.3 cm; Wt 90.3 kg
[2018-09-17 17:05] LABS: APPEARANCE CLEAR (CLEAR); COLOR YELLOW (YELLOW)
[2018-09-17 17:06] LABS: BILIRUBIN NEGATIVE (NEGATIVE); GLUCOSE NEGATIVE (NEGATIVE); KETONE NEGATIVE (NEGATIVE); NITRITE NEGATIVE (NEGATIVE); PROTEIN NEGATIVE (NEGATIVE); UROBILINOGEN NORMAL (NORMAL)
--- NOTE | 2018-09-17 18:00 | NUR ---
PT RESTING IN BED. CO OF BEING, "ANXIOUS AND JITTERY". ATIVAN GIVEN PER MD ORDER. "DID NOT HELP." CALLED DR JACOBO ABOUT THE PT AND HE TAKES HOME SEROQUEL. TO FOR X1 SEROQUEL 200 MG GIVE NOW. NO S/S OF ACUTE DISTRESS. CL IN PLACE.
[2018-09-17 18:07] VITALS: BP 122/66
--- NOTE | 2018-09-17 19:35 | NUR ---
PT WITH EYES CLOSED AND UNLABORED RESPIRATIONS WHEN ENTERING THE ROOM. AROUSES TO NAME BEING CALLED. STATES HE RECEIVED SWEROQUEL EARLY AND IT MAKES HIM DROWSY. STATES PAIN IS "MINIMAL", DENIES NEED FOR PAIN MEDICINE AT THIS TIME. INFORMED PATIENT NEEDING A STOOL SAMPLE. PT VERBALIZES UNDERSTANDING AND HAS CUP AT BEDSIDE. HYPOACTIVE BOWEL SOUNDS NOTED IN ALL FOUR QUADRANTS. SLIGHT DISTENTION TO ABDOMEN NOTED. NON TENDER TO PALPTAION. DENIES PASSING GAS AT THIS TIME. HAS PATENT IV TO THE LEFT AC THAT IS INFUSING D5 LR WITH 10 OF K @ 125. DENIES FURTHER NEEDS AT THIS TIME. CALL LIGHT IS IN REACH OF PATIENT.
[2018-09-17 20:00] VITALS: BP 140/72
[2018-09-18] VITALS: BP 123/65
--- NOTE | 2018-09-18 01:36 | NUR ---
I have reviewed this patient and I concur with the Shift Assessment completed by the Licensed Practical Nurse today this shift.
[2018-09-18 04:00] VITALS: BP 112/60
[2018-09-18 07:00] LABS: CALC OSMOLALITY 280 mosm/kg (275-300); CALCIUM 8.7 mg/dL (8.5-10.1); CARBON DIOXIDE 28.2 mmol/L (21.0-32.0); CHLORIDE - SERUM 106 mmol/L (98-107); CREATININE - SERUM 0.8 mg/dL (0.6-1.3); GLUCOSE 98 mg/dL (74-106); MAGNESIUM - SERUM 1.5 mg/dL (1.8-2.4); POTASSIUM - SERUM 3.5 mmol/L (3.5-5.1); SODIUM 142 mmol/L (136-145); UREA NITROGEN 8 mg/dL (7-18); eGFR NON AFRICAN AMERICAN > 90 mL/min (90-120)
[2018-09-18 07:09] LABS: BASOPHILS 0.6 % (0-2); EOSINOPHILS 9.7 % (0-7); HEMATOCRIT 37.2 % (42.0-54.0); HEMOGLOBIN 12.5 g/dL (13.5-17.5); LYMPHOCYTES 25.2 % (15-50); MCH 27.9 pg (26.0-34.0); MCHC 33.6 g/dL (31.0-37.0); MEAN PLATELET VOLUME 11.1 fL (7.4-10.4); MONOCYTES 10.3 % (2-11); NEUTROPHILS 54.2 % (40-80); PLATELET COUNT 133 10x3/uL (130-400); RBC 4.48 10x6/uL (4.20-6.10); RDW 14.4 % (11.5-14.5); WBC 4.7 10x3/uL (4.8-10.8)
[2018-09-18 13:32] VITALS: BP 125/66
--- NOTE | 2018-09-18 16:47 | NUR ---
I have reviewed this patient and I concur with the Shift Assessment completed by the Licensed Practical Nurse today this shift.
[2018-09-18 17:07] VITALS: BP 137/75
--- NOTE | 2018-09-18 19:00 | NUR ---
PT IS ALERT AND ORIENTED. BOWEL SOUNDS ACTIVE IN FOUR QUADRANTS. DISTENTION NOTED AND TENDER TO ABODMINAL PALPATION. PT STATES THAT HE EXPERIENCES ABDOMINAL DISCOMFORT BUT DENIES PAIN MEDICINE WHEN OFFERED. HAS MAGNESIUM AND D5 LR WITH 10 OF K INFUSING TO THE RIGHT AC AT THIS TIME. IV SITE IS PATENT AND INTACT WITHOUT REDNESS OR TENDERNESS NOTED. PT HAS UNLABORED RESPIRATIONS ON ROOM AIR. DENIES FURTHER NEEDS FOR CARE AT THIS TIME. HAS CALL LIGHT IN REACH.
[2018-09-18 19:58] VITALS: BP 121/77
[2018-09-19] VITALS: BP 111/58
--- NOTE | 2018-09-19 02:55 | NUR ---
I have reviewed this patient and I concur with the Shift Assessment completed by the Licensed Practical Nurse today this shift.
[2018-09-19 04:00] VITALS: BP 115/76
[2018-09-19 06:48] LABS: BASOPHILS 0.9 % (0-2); EOSINOPHILS 10.9 % (0-7); HEMATOCRIT 35.8 % (42.0-54.0); HEMOGLOBIN 12.3 g/dL (13.5-17.5); LYMPHOCYTES 22.5 % (15-50); MCH 27.9 pg (26.0-34.0); MCHC 34.4 g/dL (31.0-37.0); MCV 81.2 fL (80.0-100.0); MEAN PLATELET VOLUME 10.9 fL (7.4-10.4); MONOCYTES 9.2 % (2-11); NEUTROPHILS 56.5 % (40-80); PLATELET COUNT 125 10x3/uL (130-400); RBC 4.41 10x6/uL (4.20-6.10); WBC 4.5 10x3/uL (4.8-10.8)
[2018-09-19 07:06] LABS: CALC OSMOLALITY 282 mosm/kg (275-300); CALCIUM 8.7 mg/dL (8.5-10.1); CARBON DIOXIDE 26.5 mmol/L (21.0-32.0); CHLORIDE - SERUM 108 mmol/L (98-107); CREATININE - SERUM 0.7 mg/dL (0.6-1.3); GLUCOSE 99 mg/dL (74-106); POTASSIUM - SERUM 3.5 mmol/L (3.5-5.1); SODIUM 143 mmol/L (136-145); UREA NITROGEN 8 mg/dL (7-18); eGFR NON AFRICAN AMERICAN > 90 mL/min (90-120)
[2018-09-19 08:30] VITALS: BP 126/68
[2018-09-19 12:16] VITALS: BP 130/81
--- NOTE | 2018-09-19 14:32 | NUR ---
I have reviewed this patient and I concur with the Shift Assessment completed by the Licensed Practical Nurse today this shift.
--- NOTE | 2018-09-19 14:48 | NUR ---
PATIENT IN SHOWER.
[2018-09-19 16:55] VITALS: BP 130/79
[2018-09-19 20:00] VITALS: BP 138/813
--- NOTE | 2018-09-19 20:00 | NUR ---
ALERT RESTING IN BED, DENIES NEEDS AT THIS TIME SEE SHIFT ASSESSMENT CALL LIGHT IN REACH
[2018-09-20] VITALS: BP 149/85
[2018-09-20 04:00] VITALS: BP 116/63
[2018-09-20 07:07] LABS: BASOPHILS 0.5 % (0-2); EOSINOPHILS 11.6 % (0-7); HEMATOCRIT 37.7 % (42.0-54.0); HEMOGLOBIN 12.8 g/dL (13.5-17.5); IMMATURE GRANULOCYTES 0.3 % (0-5); LYMPHOCYTES 25.3 % (15-50); MCH 27.8 pg (26.0-34.0); MCV 81.8 fL (80.0-100.0); MEAN PLATELET VOLUME 11.5 fL (7.4-10.4); MONOCYTES 10.9 % (2-11); NEUTROPHILS 51.4 % (40-80); PLATELET COUNT 133 10x3/uL (130-400); RBC 4.61 10x6/uL (4.20-6.10); RDW 14.3 % (11.5-14.5)
[2018-09-20 07:57] LABS: CALC OSMOLALITY 282 mosm/kg (275-300); CALCIUM 9.2 mg/dL (8.5-10.1); CHLORIDE - SERUM 108 mmol/L (98-107); CREATININE - SERUM 0.8 mg/dL (0.6-1.3); GLUCOSE 101 mg/dL (74-106); POTASSIUM - SERUM 3.7 mmol/L (3.5-5.1); SODIUM 143 mmol/L (136-145); UREA NITROGEN 7 mg/dL (7-18); eGFR NON AFRICAN AMERICAN > 90 mL/min (90-120)
--- NOTE | 2018-09-20 09:20 | NUR ---
PT ALERT X 4. BREATH SOUNDS CLEAR BILAT. IV TO RIGHT AC, PATENT, DRESSING CDI. PT REPORTING TENDERNESS TO RIGHT SIDE OF ABDOMEN. "NOT FEELING TOO GOOD" THIS MORNING. BED LOW, CALL LIGHT IN REACH. NO OTHER NEEDS AT THIS TIME.
[2018-09-20 09:25] VITALS: BP 131/80
[2018-09-20 13:00] VITALS: BP 141/92
[2018-09-20 18:20] VITALS: BP 136/81
[2018-09-20 20:00] VITALS: BP 108/71
--- NOTE | 2018-09-20 20:00 | NUR ---
ALERT AND ORIENTED. RIGHT FORE ARM IV INFUSING D5LR WITH K @ 50 AN HOUR. PATENT AND NON TENDER. ABDOMEN TENDER TO PALPATION. BOWEL SOUNDS IN ALL FOUR QUADRANTS. 24 HOUR URINE IN PROGRESS. DENIES NEEDS AT THIS TIME. CALL LIGHT IN REACH.
[2018-09-21] VITALS: BP 98/44
[2018-09-21 04:00] VITALS: BP 106/55
--- NOTE | 2018-09-21 04:49 | NUR ---
I have reviewed this patient and I concur with the Shift Assessment completed by the Licensed Practical Nurse today this shift.
[2018-09-21 04:53] LABS: BASOPHILS 0.6 % (0-2); EOSINOPHILS 10.5 % (0-7); HEMATOCRIT 37.6 % (42.0-54.0); HEMOGLOBIN 12.6 g/dL (13.5-17.5); IMMATURE GRANULOCYTES 0.2 % (0-5); LYMPHOCYTES 25.5 % (15-50); MCH 27.4 pg (26.0-34.0); MCHC 33.5 g/dL (31.0-37.0); MCV 81.7 fL (80.0-100.0); MEAN PLATELET VOLUME 11.1 fL (7.4-10.4); MONOCYTES 9.9 % (2-11); NEUTROPHILS 53.3 % (40-80); PLATELET COUNT 147 10x3/uL (130-400); RDW 14.1 % (11.5-14.5)
[2018-09-21 05:04] LABS: WBC 5.3 10x3/uL (4.8-10.8)
[2018-09-21 05:08] LABS: CALC OSMOLALITY 278 mosm/kg (275-300); CALCIUM 8.7 mg/dL (8.5-10.1); CARBON DIOXIDE 27.8 mmol/L (21.0-32.0); CHLORIDE - SERUM 107 mmol/L (98-107); CREATININE - SERUM 0.9 mg/dL (0.6-1.3); GLUCOSE 90 mg/dL (74-106); POTASSIUM - SERUM 3.6 mmol/L (3.5-5.1); SODIUM 141 mmol/L (136-145); UREA NITROGEN 7 mg/dL (7-18); eGFR NON AFRICAN AMERICAN > 90 mL/min (90-120)
[2018-09-21 05:45] LABS: ERYTHROCYTE SEDIMENTATION RATE 56 mm/hr (0-20)
--- NOTE | 2018-09-21 08:06 | NUR ---
REC'D IN BED AWAKE AND ALERT. RESP EVEN AND UNLABORED WITH NO DISTRESS NOTED. CAN EXPRESS NEEDS AND WANTS. NO C/O NOTED OR VOICED AT THIS TIME. ASSESSMENT COMPLETED. C/L IN REACH AT BEDSIDE.
[2018-09-21 08:45] VITALS: BP 115/67
[2018-09-21 13:02] VITALS: BP 123/81
--- NOTE | 2018-09-21 15:00 | NUR ---
I have reviewed this patient and I concur with the Shift Assessment completed by the Licensed Practical Nurse today this shift.
[2018-09-21 16:56] VITALS: BP 134/68
--- NOTE | 2018-09-21 17:14 | MORECARE ---
CASE MANAGEMENT DISCHARGE SUMMARY PATIENT: SONG MACKENZIE MARY UNIT: [id number] ADM DATE: 09/16/18 AGE: 63 : 57 SEX: M ROOM/BED: D.2233 AUTHOR: TRISTEN TORO PHYSICIAN: REFERRING PHYSICIAN: EVAN JACBOO MD DATE OF SERVICE: 09/21/18 Discharge Plan Patient Name: SONG MACKENZIE [facility] [facility] 1955 Planned Disposition: Home Anticipated Discharge Date: Discharge Date: Expected LOS: Initial Reviewer: [email or web address] Initial Review Date: 09/21/2018 Generated: 09/21/18 6:14 pm DCPIA - Discharge Planning Initial Assessment Updated by [email or web address]: Yenny Ruiz on 09/21/18 5:14 pm * Is the patient Alert and Oriented? Yes * How many steps to enter\exit or inside your home? 2/0 * PCP Dr. West * Pharmacy [facility] in [place] * Preadmission Environment Home with Family * ADLs Independent * Equipment None * List name and contact numbers for known caregivers / representatives who currently or will assist patient after discharge: Naty veliz - [phone] * Verbal permission to speak to the caregivers and representatives has been obtained from the patient. Yes * Community resources currently utilized None * Additional services required to return to the preadmission environment? No * Can the patient safely return to the preadmission environment? Yes * Has this patient been hospitalized within the prior 30 days at any hospital? Yes Patient Name: SONG MACKENZIE Page 51854 at 1714 All edits/amendments must be made on the electronic document DICTATION DATE: 09/21/181713 AGENCY MANAGER: TRICIA 09/21/181713 RPT#: [id number] DC DATE: STATUS: ADM IN [facility] [address] [place] [address] END OF REPORT
--- NOTE | 2018-09-21 17:25 | MORECARE ---
CASE MANAGEMENT DISCHARGE SUMMARY PATIENT: SONG MACKENZIE MARY UNIT: [id number] ADM DATE: 09/16/18 AGE: 63 : 57 SEX: M ROOM/BED: D.2233 AUTHOR: CORTEZ,DOC PHYSICIAN: REFERRING PHYSICIAN: EVAN JACOBO MD DATE OF SERVICE: 09/21/18 Discharge Plan Patient Name: SONG MACKENZIE Facility: [facility]:[place] : 1955 Planned Disposition: Home Anticipated Discharge Date: Discharge Date: Expected LOS: Initial Reviewer: [email or web address] Initial Review Date: 09/21/2018 Generated: 09/21/18 6:24 pm Comments DCP- Discharge Planning Updated by [email or web address]: Yenny Ruiz on 09/21/18 4:[address] Patient Name: SONG MACKENZIE Admission Status: ER Accout number: [id number] Admission Date: 09-16-2018 : 1955 Admission Diagnosis:UNSPECIFIED ABDOMINAL PAIN Attending: EVAN JACOBO Current LOS: 5 Anticipated DC Date: Planned Disposition: Home Primary Insurance: [employer] CHOICE PPO MCR ADVANT Discharge Planning Comments: CM met with patient to complete initial dc planning assessment. CM educated patient on the CM role and verbal consent given by patient to complete assessment. Patient lives at home with his . At discharge patient plans to return and feels this is a safe discharge. CM discussed availability of home health, rehab services, and medical equipment. Patient denied known discharge needs at this time. States his will take him home on discharge. CM will continue to follow and will assist as needed with dc plans/needs. Stay Cutter: Yenny Ruiz DCPIA - Discharge Planning Initial Assessment Updated by [email or web address]: Yenny Ruiz on 09/21/18 5:14 pm * Is the patient Alert and Oriented? Yes * How many steps to enter\exit or inside your home? 2/0 * PCP Dr. West * Pharmacy [facility] in [place] * Preadmission Environment Home with Family * ADLs Independent * Equipment None * List name and contact numbers for known caregivers / representatives who currently or will assist patient after discharge: Naty veliz - [phone] * Verbal permission to speak to the caregivers and representatives has been obtained from the patient. Yes * Community resources currently utilized None * Additional services required to return to the preadmission environment? No * Can the patient safely return to the preadmission environment? Yes * Has this patient been hospitalized within the prior 30 days at any hospital? Yes Last DP export: 09/21/18 4:14 p Patient Name: SONG MACKENZIE Page [phone] at 1725 All edits/amendments must be made on the electronic document DICTATION DATE: 09/21/181723 TAPPER SHANK: TRICIA 09/21/181723 RPT#: [id number] DC DATE: STATUS: ADM IN [facility] [address] [place] [address] END OF REPORT
[2018-09-21 20:00] VITALS: BP 128/75
[2018-09-22] VITALS: BP 119/73
--- NOTE | 2018-09-22 00:32 | NUR ---
RESTING IN BED WITH NO NOTED NEEDS AT THIS TIME. IV IN PLACE AND PATEN, WATER AND CALL LIGHT IN REACH. WILL CONTIUE WITH PLAIN OF CARE
[2018-09-22 04:00] VITALS: BP 144/70
[2018-09-22 05:29] LABS: BASOPHILS 0.5 % (0-2); EOSINOPHILS 11.8 % (0-7); HEMATOCRIT 37.4 % (42.0-54.0); HEMOGLOBIN 12.7 g/dL (13.5-17.5); IMMATURE GRANULOCYTES 0.2 % (0-5); LYMPHOCYTES 21.9 % (15-50); MCH 27.8 pg (26.0-34.0); MCV 81.8 fL (80.0-100.0); MEAN PLATELET VOLUME 11.4 fL (7.4-10.4); MONOCYTES 11.2 % (2-11); NEUTROPHILS 54.4 % (40-80); PLATELET COUNT 151 10x3/uL (130-400); RBC 4.57 10x6/uL (4.20-6.10); RDW 14.3 % (11.5-14.5); WBC 5.6 10x3/uL (4.8-10.8)
[2018-09-22 05:39] LABS: CALC OSMOLALITY 284 mosm/kg (275-300); CALCIUM 8.6 mg/dL (8.5-10.1); CARBON DIOXIDE 27.3 mmol/L (21.0-32.0); CHLORIDE - SERUM 107 mmol/L (98-107); GLUCOSE 94 mg/dL (74-106); POTASSIUM - SERUM 3.6 mmol/L (3.5-5.1); SODIUM 144 mmol/L (136-145); UREA NITROGEN 7 mg/dL (7-18); eGFR NON AFRICAN AMERICAN 80 mL/min (90-120)
[2018-09-22 08:16] VITALS: BP 107/64
[2018-09-22 12:43] VITALS: BP 129/79
--- NOTE | 2018-09-22 14:35 | NUR ---
NUTRITION F/U CHART REVIEWED. PT VISIT. TOLERATING REG DIET WITH 50% INTAKE LUNCH TODAY. WILL CONTINUE TO PROVIDE REG DIET, HONOR FOOD PREFERENCES. RD FOLLOWING
[2018-09-22 16:29] VITALS: BP 127/73
--- NOTE | 2018-09-22 18:02 | NUR ---
I have reviewed this patient and I concur with the Shift Assessment completed by the Licensed Practical Nurse today this shift.
[2018-09-22 20:00] VITALS: BP 106/71
[2018-09-23] VITALS: BP 116/65
[2018-09-23 04:00] VITALS: BP 107/71
[2018-09-23 06:49] LABS: BASOPHILS 0.4 % (0-2); EOSINOPHILS 10.8 % (0-7); HEMOGLOBIN 13.3 g/dL (13.5-17.5); IMMATURE GRANULOCYTES 0.3 % (0-5); LYMPHOCYTES 20.9 % (15-50); MCH 28.1 pg (26.0-34.0); MCHC 34.1 g/dL (31.0-37.0); MCV 82.3 fL (80.0-100.0); MEAN PLATELET VOLUME 11.4 fL (7.4-10.4); MONOCYTES 9.4 % (2-11); NEUTROPHILS 58.2 % (40-80); PLATELET COUNT 150 10x3/uL (130-400); RBC 4.74 10x6/uL (4.20-6.10); RDW 14.2 % (11.5-14.5); WBC 6.7 10x3/uL (4.8-10.8)
[2018-09-23 06:58] LABS: ALBUMIN 3.3 g/dL (3.4-5.0); ALKALINE PHOSPHATASE 63 U/L (46-116); ALT (SGPT) 35 U/L (10-68); BILIRUBIN - TOTAL 0.73 mg/dL (0.2-1.3); CALC OSMOLALITY 276 mosm/kg (275-300); CALCIUM 9.1 mg/dL (8.5-10.1); CARBON DIOXIDE 27.7 mmol/L (21.0-32.0); CHLORIDE - SERUM 105 mmol/L (98-107); CREATININE - SERUM 0.9 mg/dL (0.6-1.3); GLUCOSE 104 mg/dL (74-106); PROTEIN - SERUM 6.2 g/dL (6.4-8.2); SODIUM 140 mmol/L (136-145); UREA NITROGEN 7 mg/dL (7-18); eGFR NON AFRICAN AMERICAN > 90 mL/min (90-120)
[2018-09-23 09:44] VITALS: BP 107/74
[2018-09-23 12:13] LABS: CALCITONIN 3.5 pg/mL (0.0-8.4)
--- NOTE | 2018-09-23 13:21 | NUR ---
PT LYING IN BED AAO X4 TO PERSON, PLACE, TIME, AND SITUATION. FAMILY MEMEBER AT BEDSIDE. CL IN REACH. SIDE RAILS UP X3 FOR PT SAFETY. BED IN LOWEST POSITION.
[2018-09-23 18:35] VITALS: BP 123/80
[2018-09-23 20:00] VITALS: BP 115/73
--- NOTE | 2018-09-23 20:00 | NUR ---
ALERT RESTING IN BED, NO APPARENT DISTRESS, SEE SHIFT ASSESSMENT, CALL LIGHT IN REACH
[2018-09-24 04:00] VITALS: BP 102/55
[2018-09-24 05:05] LABS: BASOPHILS 0.5 % (0-2); EOSINOPHILS 9.1 % (0-7); HEMATOCRIT 39.5 % (42.0-54.0); HEMOGLOBIN 13.5 g/dL (13.5-17.5); IMMATURE GRANULOCYTES 0.5 % (0-5); LYMPHOCYTES 21.9 % (15-50); MCH 28.1 pg (26.0-34.0); MCHC 34.2 g/dL (31.0-37.0); MCV 82.1 fL (80.0-100.0); MEAN PLATELET VOLUME 11.5 fL (7.4-10.4); MONOCYTES 11.1 % (2-11); NEUTROPHILS 56.9 % (40-80); PLATELET COUNT 159 10x3/uL (130-400); RBC 4.81 10x6/uL (4.20-6.10); RDW 14.2 % (11.5-14.5); WBC 5.9 10x3/uL (4.8-10.8)
[2018-09-24 05:46] LABS: ALBUMIN 3.3 g/dL (3.4-5.0); ALKALINE PHOSPHATASE 63 U/L (46-116); ALT (SGPT) 34 U/L (10-68); BILIRUBIN - TOTAL 0.68 mg/dL (0.2-1.3); CALC OSMOLALITY 278 mosm/kg (275-300); CALCIUM 9.2 mg/dL (8.5-10.1); CARBON DIOXIDE 27.4 mmol/L (21.0-32.0); CHLORIDE - SERUM 106 mmol/L (98-107); CREATININE - SERUM 0.9 mg/dL (0.6-1.3); GLUCOSE 105 mg/dL (74-106); POTASSIUM - SERUM 3.8 mmol/L (3.5-5.1); PROTEIN - SERUM 6.3 g/dL (6.4-8.2); SODIUM 141 mmol/L (136-145); UREA NITROGEN 8 mg/dL (7-18); eGFR NON AFRICAN AMERICAN > 90 mL/min (90-120)
--- NOTE | 2018-09-24 07:30 | NUR ---
PT RESTING IN BED, EYES OPEN. ALERT AND ORIENTED. UP AD NOMAN. DRESSING TO RIGHT HIP, C/D/I. IV TO RIGHT HAND, D5LR @ 30ML/HR. SITE PATENT WITHOUT REDNESS OR SWELLING. PT DENIES ANYTHING FURTHER AT THIS TIME. CALL LIGHT IN REACH. WILL CONTINUE TO MONITOR.
[2018-09-24 09:38] VITALS: BP 105/71
--- NOTE | 2018-09-24 17:02 | NUR ---
I have reviewed this patient and I concur with the Shift Assessment completed by the Licensed Practical Nurse today this shift.
[2018-09-24 17:56] VITALS: BP 120/83
--- NOTE | 2018-09-24 18:33 | NUR ---
PT RESTING IN BED, EYES OPEN. NO C/O PAIN. NO S/S OF ACUTE DISTRESS NOTED. PT UNABLE TO EAT SUPPER. C/O MEAT TO TOUGH AND FEELS LIKE IT GETS STUCK IN THROAT. OFFERED PT SOMETHING ELSE TO EAT, PT REFUSED. PT DENIES ANYTHING FURTHER AT THIS TIME. CALL LIGHT IN REACH. WILL CONTINUE TO MONITOR.
--- NOTE | 2018-09-24 20:00 | NUR ---
ALERT SITTING UP IN CHAIR, REQUESTING DRESSING BE CHANGED TO RIGHT HIP BUTTOCKS, SMALL AMOUNT OF DRAINAGE NOTED ON OLD DRESSING, MIPERPLEX RESSING APPLIED SECURED WITH TAPE. CALL RYAN GRIMES, SEE SHIFT ASSESSMENT
[2018-09-24 21:08] VITALS: BP 137/80
[2018-09-25 01:39] VITALS: BP 144/60
[2018-09-25 04:58] VITALS: BP 111/68
[2018-09-25 06:14] LABS: BASOPHILS 0.9 % (0-2); EOSINOPHILS 11.1 % (0-7); HEMATOCRIT 38.3 % (42.0-54.0); HEMOGLOBIN 13.1 g/dL (13.5-17.5); IMMATURE GRANULOCYTES 0.2 % (0-5); MCH 27.9 pg (26.0-34.0); MCHC 34.2 g/dL (31.0-37.0); MCV 81.5 fL (80.0-100.0); MEAN PLATELET VOLUME 11.2 fL (7.4-10.4); NEUTROPHILS 48.8 % (40-80); PLATELET COUNT 167 10x3/uL (130-400); WBC 5.6 10x3/uL (4.8-10.8)
[2018-09-25 06:52] LABS: ALBUMIN 3.3 g/dL (3.4-5.0); ALKALINE PHOSPHATASE 57 U/L (46-116); ALT (SGPT) 30 U/L (10-68); BILIRUBIN - TOTAL 0.62 mg/dL (0.2-1.3); CALC OSMOLALITY 277 mosm/kg (275-300); CALCIUM 9.1 mg/dL (8.5-10.1); CARBON DIOXIDE 28.7 mmol/L (21.0-32.0); CHLORIDE - SERUM 104 mmol/L (98-107); GLUCOSE 102 mg/dL (74-106); POTASSIUM - SERUM 3.6 mmol/L (3.5-5.1); PROTEIN - SERUM 6.2 g/dL (6.4-8.2); SODIUM 140 mmol/L (136-145); UREA NITROGEN 9 mg/dL (7-18); eGFR NON AFRICAN AMERICAN 80 mL/min (90-120)
[2018-09-25 08:45] VITALS: BP 109/69
[2018-09-25] MEDS ORDERED: BENTYL 20 MG TA20 MG PO (09:31)
[2018-09-25] MEDS ORDERED: METAMUCIL PACKE1 PKT PO (09:32)
[2018-09-25] MEDS ORDERED: FLORASTOR250 MG PO (09:32)
[2018-09-25] MEDS ORDERED: MIRALAX17 GM PO (09:33)
--- NOTE | 2018-09-25 11:25 | MORECARE ---
CASE MANAGEMENT DISCHARGE SUMMARY PATIENT: SONG MACKENZIE MARY UNIT: [id number] ADM DATE: 09/16/18 AGE: 63 : 57 SEX: M ROOM/BED: D.2233 AUTHOR: CORTEZDOC PHYSICIAN: REFERRING PHYSICIAN: EVAN JACOBO MD DATE OF SERVICE: 09/25/18 Discharge Plan Patient Name: SONG MACKENZIE Facility: [facility]:[place] : 1955 Planned Disposition: Home Anticipated Discharge Date: Discharge Date: Expected LOS: Initial Reviewer: [email or web address] Initial Review Date: 09/21/2018 Generated: 09/25/18 12:25 pm Comments DCP- Discharge Planning Updated by [email or web address]: Yenny Ruiz on 09/25/18 10:[address] Received discharge order. IMM explained, signed, given. No changes to plan. Home today with family. CM will continue to follow and assist with discharge planning/needs. DCP- Discharge Planning Updated by [email or web address]: Yenny Ruiz on 09/21/18 4:[address] Patient Name: SONG MACKENZIE Admission Status: ER Accout number: [id number] Admission Date: 09-16-2018 : 1955 Admission Diagnosis:UNSPECIFIED ABDOMINAL PAIN Attending: EVAN JACOBO Current LOS: 5 Anticipated DC Date: Planned Disposition: Home Primary Insurance: [employer] CHOICE PPO MCR ADVANT Discharge Planning Comments: CM met with patient to complete initial dc planning assessment. CM educated patient on the CM role and verbal consent given by patient to complete assessment. Patient lives at home with his . At discharge patient plans to return and feels this is a safe discharge. CM discussed availability of home health, rehab services, and medical equipment. Patient denied known discharge needs at this time. States his will take him home on discharge. CM will continue to follow and will assist as needed with dc plans/needs. Vp Software Engineering: Yenny Ruiz DCPIA - Discharge Planning Initial Assessment Updated by [email or web address]: Yenny Ruiz on 09/21/18 5:14 pm * Is the patient Alert and Oriented? Yes * How many steps to enter\exit or inside your home? 2/0 * PCP Dr. West * Pharmacy [facility] in [place] * Preadmission Environment Home with Family * ADLs Independent * Equipment None * List name and contact numbers for known caregivers / representatives who currently or will assist patient after discharge: Naty veliz - [phone] * Verbal permission to speak to the caregivers and representatives has been obtained from the patient. Yes * Community resources currently utilized None * Additional services required to return to the preadmission environment? No * Can the patient safely return to the preadmission environment? Yes * Has this patient been hospitalized within the prior 30 days at any hospital? Yes Coverage Notice Reviewer: [email or web address] Anjel Ruiz Notice Issued Date-Time: 09/25/2018 9:13 Notice Type: IM Discharge Notice Notice Delivered To: Patient Relationship to Patient: Self It Project Lead Name: Delivery Method: HAND - Hand Delivered Ce Days: Prior Verbal Notification: Recipient Understood Notice: Yes Recipient Signature: Yes Med Rec Note Co-signed by Attending: Coverage Notice Comment: IMM delivered, signed, given, copy placed in MR Last DP export: 09/21/18 4:25 p Patient Name: SONG MACKENZIE Page [phone] at 1125 All edits/amendments must be made on the electronic document DICTATION DATE: 09/25/181123 SACK MAKER: TRICIA 09/25/181123 RPT#: [id number] DC DATE: STATUS: ADM IN [facility] [address] [place] [address] END OF REPORT
--- NOTE | 2018-09-25 12:40 | NUR ---
IV DISCONTINUED AND VERBALIZED UNDERSTANDING OF DISCHARGE INSTRUCTIONS. STABLE AT TIME OF DEPARTURE.
[2018-09-26 09:12] LABS: 5HIAA - 24HR 3.7 mg/24 hr (0.0-14.9); 5HIAA - UR 2.2 mg/L (Undefined)
--- NOTE | 2018-09-26 15:55 | MORECARE ---
CASE MANAGEMENT DISCHARGE SUMMARY PATIENT: SONG MACKENZIE MARY UNIT: [id number] ADM DATE: 09/16/18 AGE: 63 : 57 SEX: M ROOM/BED: D.2233 AUTHOR: CORTEZDOC PHYSICIAN: REFERRING PHYSICIAN: EVAN JACOBO MD DATE OF SERVICE: 09/26/18 Discharge Plan Patient Name: SONG MACKENZIE Facility: [facility]:[place] : 1955 Planned Disposition: Home Anticipated Discharge Date: Discharge Date: 09/25/2018 Expected LOS: Initial Reviewer: [email or web address] Initial Review Date: 09/21/2018 Generated: 09/26/18 4:54 pm Comments DCP- Discharge Planning Updated by [email or web address]: Yenny Ruiz on 09/25/18 10:[address] Received discharge order. IMM explained, signed, given. No changes to plan. Home today with family. CM will continue to follow and assist with discharge planning/needs. DCP- Discharge Planning Updated by [email or web address]: Yenny Ruiz on 09/21/18 4:[address] Patient Name: SONG MACKENZIE Admission Status: ER Accout number: [id number] Admission Date: 09-16-2018 : 1955 Admission Diagnosis:UNSPECIFIED ABDOMINAL PAIN Attending: EVAN JACOBO Current LOS: 5 Anticipated DC Date: Planned Disposition: Home Primary Insurance: [employer] CHOICE PPO MCR ADVANT Discharge Planning Comments: CM met with patient to complete initial dc planning assessment. CM educated patient on the CM role and verbal consent given by patient to complete assessment. Patient lives at home with his . At discharge patient plans to return and feels this is a safe discharge. CM discussed availability of home health, rehab services, and medical equipment. Patient denied known discharge needs at this time. States his will take him home on discharge. CM will continue to follow and will assist as needed with dc plans/needs. Client Reporting Associate: Yenny Ruiz DCPIA - Discharge Planning Initial Assessment Updated by [id number]: Yenny Ruiz on 09/21/18 5:14 pm * Is the patient Alert and Oriented? Yes * How many steps to enter\exit or inside your home? 2/0 * PCP Dr. West * Pharmacy [facility] [place] * Preadmission Environment Home with Family * ADLs Independent * Equipment None * List name and contact numbers for known caregivers / representatives who currently or will assist patient after discharge: Naty veliz - [phone] * Verbal permission to speak to the caregivers and representatives has been obtained from the patient. Yes * Community resources currently utilized None * Additional services required to return to the preadmission environment? No * Can the patient safely return to the preadmission environment? Yes * Has this patient been hospitalized within the prior 30 days at any hospital? 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
[2018-09-30 17:08] LABS: OVA + PARASITE EXAM Final report (())
== END 2018-09-25 12:40 | disposition home or self-care (01) | DRG 389 ==
LOC: D.ER 08:28 → D.EDHOLD 13:16 → D.MS 13:16
PROVIDERS: Emergency Medicine; Family Medicine; Surgery; ADMIT Internal Medicine Nephrology; ATTEND Internal Medicine Nephrology
PROC: 0D9670Z Drainage of Stomach with Drainage Device, Via Natural or Artificial Opening (ICD-10-PCS; principal; 2018-09-16)
PROC: 0DJ08ZZ Inspection of Upper Intestinal Tract, Via Natural or Artificial Opening Endoscopic (ICD-10-PCS; 2018-09-23)
DX: K56.609 Unspecified intestinal obstruction, unspecified as to partial versus complete obstruction (principal); E44.0 Moderate protein-calorie malnutrition; R18.8 Other ascites; L02.31 Cutaneous abscess of buttock; F32.9 Major depressive disorder, single episode, unspecified; G62.9 Polyneuropathy, unspecified; I10 Essential (primary) hypertension; G89.29 Other chronic pain; M54.9 Dorsalgia, unspecified; F41.9 Anxiety disorder, unspecified; M79.7 Fibromyalgia; K21.9 Gastro-esophageal reflux disease without esophagitis; G43.909 Migraine, unspecified, not intractable, without status migrainosus

== ENCOUNTER → 2018-11-13 09:32 | Outpatient (CLI) | payer MEDICARE, OTHER ==
[2018-09-17 15:46] VITALS: BMI 29.4
[~2018-11-13 09:32] MED LIST changes: +BENTYL 20 MG TA20 MG PO; +DOXYCYCLINE HY100 M2 PO; +FLORASTOR250 MG PO; +METAMUCIL PACKE1 PKT PO
== END | disposition home or self-care (01) ==
LOC: D.RAD 09:32
PROVIDERS: ATTEND Family Medicine
DX: R13.19 Other dysphagia (principal)

== ENCOUNTER 2018-11-13 19:55 | Inpatient (IN) | payer MEDICARE, OTHER ==
[~2018-11-13] VITALS: Ht 175.3 cm; Wt 86.4 kg
[~2018-11-13 19:55] MED LIST changes: -DOXYCYCLINE HY100 M2 PO
[2018-11-13 20:30] LABS: HEMATOCRIT 38.3 % (42.0-54.0); HEMOGLOBIN 13.6 g/dL (13.5-17.5); MCH 27.5 pg (26.0-34.0); MCHC 35.5 g/dL (31.0-37.0); MCV 77.4 fL (80.0-100.0); MEAN PLATELET VOLUME 11.5 fL (7.4-10.4); PLATELET COUNT 134 10x3/uL (130-400); RBC 4.95 10x6/uL (4.20-6.10); RDW 14.1 % (11.5-14.5); WBC 6.9 10x3/uL (4.8-10.8)
[2018-11-13 20:42] LABS: ALBUMIN 3.7 g/dL (3.4-5.0); ALKALINE PHOSPHATASE 119 U/L (46-116); ALT (SGPT) 31 U/L (10-68); BILIRUBIN - TOTAL 1.27 mg/dL (0.2-1.3); CALC OSMOLALITY 268 mosm/kg (275-300); CALCIUM 9.2 mg/dL (8.5-10.1); CARBON DIOXIDE 25.8 mmol/L (21.0-32.0); CHLORIDE - SERUM 99 mmol/L (98-107); GLUCOSE 106 mg/dL (74-106); POTASSIUM - SERUM 3.3 mmol/L (3.5-5.1); PROTEIN - SERUM 7.2 g/dL (6.4-8.2); SODIUM 135 mmol/L (136-145); UREA NITROGEN 11 mg/dL (7-18); eGFR NON AFRICAN AMERICAN 80 mL/min (90-120)
[2018-11-13 20:45] LABS: AMYLASE - SERUM 33 U/L (25-115); LIPASE 204 U/L (73-393)
[2018-11-13 20:56] LABS: EOSINOPHILS 3 % (0-7); LYMPHOCYTES 26 % (15-50); MONOCYTES 9 % (2-11); NEUTROPHILS 50 % (40-80); PLATELET ESTIMATE NORMAL
[2018-11-13 20:58] LABS: TROPONIN-I < 0.017 ng/mL (0.000-0.060)
[2018-11-13 21:07] VITALS: BP 150/80
--- NOTE | 2018-11-13 21:30 | NUR ---
BLANKET PROVIDED FOR PT COMFORT. AT BEDSIDE PLAYING MUSIC ON PHONE FOR PT AT THIS TIME.
[2018-11-13 22:01] VITALS: BP 113/64
[2018-11-13 23:00] VITALS: BP 122/58
--- NOTE | 2018-11-13 23:30 | NUR ---
PT RESTING QUIETLY IN BED, LAYING ON LEFT SIDE WITH EYES CLOSED. INFORMED THIS NURSE THAT SHE IS GOING HOME TO GRANDCHILDREN AND WOULD CHECK IN ON PT IN THE AM. PT AWARE OF THIS PLAN.
[2018-11-14] VITALS (8 sets, daily range): BP systolic 111–166; BP diastolic 55–98; Ht 175.3 cm; Wt 86.4 kg
--- NOTE | 2018-11-14 00:30 | NUR ---
ADDITIONAL BLANKET PROVIDED FOR PT COMFORT AT THIS TIME. NO S/S OF DISTRESS. NO FURTHER C/O.
[2018-11-14] MEDS ORDERED: CARAFATE1 G PO (01:53)
[2018-11-14] MEDS ORDERED: MOBIC7.5 MG PO (01:54)
[2018-11-14 05:33] LABS: BASOPHILS 0.8 % (0-2); EOSINOPHILS 1.7 % (0-7); HEMATOCRIT 33.3 % (42.0-54.0); HEMOGLOBIN 11.8 g/dL (13.5-17.5); IMMATURE GRANULOCYTES 0.2 % (0-5); LYMPHOCYTES 35.9 % (15-50); MCH 27.6 pg (26.0-34.0); MCHC 35.4 g/dL (31.0-37.0); MONOCYTES 13.1 % (2-11); NEUTROPHILS 48.3 % (40-80); PLATELET COUNT 133 10x3/uL (130-400); RBC 4.27 10x6/uL (4.20-6.10); RDW 14.1 % (11.5-14.5); WBC 5.2 10x3/uL (4.8-10.8)
[2018-11-14 05:58] LABS: ALBUMIN 3.1 g/dL (3.4-5.0); ALKALINE PHOSPHATASE 218 U/L (46-116); CALC OSMOLALITY 276 mosm/kg (275-300); CALCIUM 8.3 mg/dL (8.5-10.1); CARBON DIOXIDE 26.4 mmol/L (21.0-32.0); CHLORIDE - SERUM 102 mmol/L (98-107); CREATININE - SERUM 0.9 mg/dL (0.6-1.3); GLUCOSE 96 mg/dL (74-106); SODIUM 139 mmol/L (136-145); UREA NITROGEN 9 mg/dL (7-18); eGFR NON AFRICAN AMERICAN > 90 mL/min (90-120)
[2018-11-14 06:00] LABS: ALT (SGPT) 61 U/L (10-68)
--- NOTE | 2018-11-14 07:35 | NUR ---
I have reviewed this patient and I concur with the Shift Assessment completed by the Licensed Practical Nurse today this shift.
--- NOTE | 2018-11-14 09:00 | NUR ---
ALERT AND ORIENTED WITH LIMITED ROM DUE TO LOWER BACK PAIN TO COCCYX AREA. MORPHINE GIVEN FOR PAIN WITH MODERATELY EFFECTIVE. IVF INFUSING AT PRESCRIBED RATE. ENCOURAGED TO USE CALL LIGHT FOR ASSIST.
[2018-11-14 11:10] LABS: APPEARANCE CLEAR (CLEAR); BILIRUBIN 1+ (NEGATIVE); COLOR DK YELLOW (YELLOW); GLUCOSE NEGATIVE (NEGATIVE); KETONE LARGE mg/dL (NEGATIVE); NITRITE NEGATIVE (NEGATIVE); PROTEIN NEGATIVE (NEGATIVE); SPECIFIC GRAVITY 1.015 (1.005-1.020)
[2018-11-14 12:32] LABS: % SATURATION 25 % (15-55); IRON 58 ug/dl (35-150); TOTAL IRON BIND CAPACITY 224 ug/dl (260-445); UNSAT IRON BIND CAPACITY 166 ug/dl (150-375)
[2018-11-14 13:10] LABS: CKMB 0.4 U/L (0.0-3.6); CREATINE KINASE 29 UL (21-232); TROPONIN-I < 0.017 ng/mL (0.000-0.060)
[2018-11-14 18:51] LABS: CKMB 0.3 U/L (0.0-3.6); CREATINE KINASE 27 UL (21-232); TROPONIN-I < 0.017 ng/mL (0.000-0.060)
--- NOTE | 2018-11-14 19:25 | NUR ---
RECEIVED CARE FROM DAY NURSE. CALLED TO ROOM. SITTING ON SIDE OF BED. REPORTS HE IS SICK AND STARTED CRYING. MORPHINE AND ZOFRAN GIVEN AT THIS TIME TO PATENT LEFT AC INFUSING PER ORDER. NO OTHER NEEDS VOICED AT THIS TIME.
[2018-11-15] VITALS (7 sets, daily range): BP systolic 114–133; BP diastolic 53–76
[2018-11-15 02:12] LABS: CKMB 0.6 U/L (0.0-3.6); CREATINE KINASE 24 UL (21-232)
[2018-11-15 02:13] LABS: TROPONIN-I < 0.017 ng/mL (0.000-0.060)
--- NOTE | 2018-11-15 03:00 | NUR ---
I have reviewed this patient and I concur with the Shift Assessment completed by the Licensed Practical Nurse today this shift.
[2018-11-15 05:57] LABS: BASOPHILS 0.3 % (0-2); EOSINOPHILS 1.2 % (0-7); HEMATOCRIT 34.7 % (42.0-54.0); HEMOGLOBIN 12.3 g/dL (13.5-17.5); IMMATURE GRANULOCYTES 0.3 % (0-5); LYMPHOCYTES 32.7 % (15-50); MCH 27.6 pg (26.0-34.0); MCHC 35.4 g/dL (31.0-37.0); MEAN PLATELET VOLUME 11.8 fL (7.4-10.4); MONOCYTES 8.9 % (2-11); NEUTROPHILS 56.6 % (40-80); PLATELET COUNT 139 10x3/uL (130-400); RBC 4.45 10x6/uL (4.20-6.10); RDW 14.1 % (11.5-14.5); WBC 5.8 10x3/uL (4.8-10.8)
[2018-11-15 06:13] LABS: ALBUMIN 3.1 g/dL (3.4-5.0); ALKALINE PHOSPHATASE 364 U/L (46-116); BILIRUBIN - TOTAL 1.76 mg/dL (0.2-1.3); CALCIUM 8.4 mg/dL (8.5-10.1); CARBON DIOXIDE 23.8 mmol/L (21.0-32.0); CHLORIDE - SERUM 103 mmol/L (98-107); CREATININE - SERUM 0.8 mg/dL (0.6-1.3); GLUCOSE 89 mg/dL (74-106); MAGNESIUM - SERUM 1.9 mg/dL (1.8-2.4); POTASSIUM - SERUM 3.1 mmol/L (3.5-5.1); PROTEIN - SERUM 6.2 g/dL (6.4-8.2); SODIUM 139 mmol/L (136-145); eGFR NON AFRICAN AMERICAN > 90 mL/min (90-120)
[2018-11-15 06:14] LABS: ALT (SGPT) 89 U/L (10-68); CALC OSMOLALITY 274 mosm/kg (275-300); UREA NITROGEN 6 mg/dL (7-18)
--- NOTE | 2018-11-15 09:00 | NUR ---
ALERT AND ORIENTED X4. PT NPO WITH HIBICLENS BATH GIVEN FOR PRE-OP. MORPHINE GIVEN FOR PAIN MANAGEMENT WITH MODERATELY EFFECTIVE. IVF INFUSING AT PRESCRIBED RATE TO LT. A/C. POTASSIUM GIVEN PER PROTOCOL. ENCOURAGED TO USE CALL LIGHT FOR ASSIST. REDNESS AND TENDERNESS NOTED TO COCCYX.
--- NOTE | 2018-11-15 13:00 | NUR ---
PT LEFT FOR SURGERY AND STABLE
--- NOTE | 2018-11-15 15:02 | NUR ---
PT RETURNED WITH DRESSING INTACT TO COCCYX AREA WITH IVF REESTABLEISHED
--- NOTE | 2018-11-15 19:15 | NUR ---
RECEIVED CARE FROM DAY NURSE. LYING IN BED ON LEFT SIDE. REPORTS NO NEEDS AT THIS TIME. DRESSING TO BUTTOCK CDI. IV INFUSING PER ORDER TO PATENT LEFT FA. CALL LIGHT AT SIDE.
[2018-11-16] VITALS: BP 111/60
--- NOTE | 2018-11-16 03:00 | NUR ---
I have reviewed this patient and I concur with the Shift Assessment completed by the Licensed Practical Nurse today this shift.
[2018-11-16 04:00] VITALS: BP 125/59
[2018-11-16 09:02] VITALS: BP 123/55
--- NOTE | 2018-11-16 09:35 | OP ---
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 POSTOPERATIVE DIAGNOSES: 1. Infected pilonidal cyst. 2. No evidence of anal or rectal fistula. PROCEDURE: Excisional debridement of infected pilonidal cyst. Dimensions of the debridement, including margins, measures 4.5 cm in the cephalad-caudad direction as well as 3.5 cm in the lateral dimension and 4.0 cm in depth. There is undermining from the 11 o'clock position to the 2 o'clock position of 1.5 cm. I then marsupialized the wound and packed it. SURGEON: Panda Bob MD GROUNDS MAINTENANCE SUPERVISOR: None. BLOOD LOSS: 100 cc. ANESTHESIA: General. COMPLICATIONS: None. The risks, possible complications, and alternatives to the procedure were explained to the patient. He elects to proceed. The discussion specifically included, but was not limited to, bleeding, requiring emergency reoperation; infection; recurrence of the cyst. The wound could not be closed due to the amount of induration present. It will need to be packed and closed by secondary intention. OPERATIVE COURSE: The patient was conveyed to the operating room electively on 11/15/2018. General anesthesia was induced by the anesthesia staff. The patient was placed in the prone jackknife position. The anus, upper posterior thighs, and back were sterilely prepped and draped. I then inserted a U-shaped anal retractor within the anus. I then punctured the abscess cavity with an Angiocath. Through the Angiocath, I injected a combination of methylene blue and hydrogen peroxide. We saw no bubbling of methylene blue or peroxide into the anus or rectum and therefore no evidence of a perirectal or perianal fistula. The Angiocath was then removed. Utilizing scalpel, I performed excisional debridement down to the level of the sacrum. There was some additional surrounding blue material, which was excised in a piecemeal fashion with the electrocautery. The final dimensions of the excision are listed above. Cultures of some of the purulence were obtained for aerobic and anaerobic studies. Hemostasis was achieved with electrocautery. I then marsupialized the wound with running locking 3-0 Vicryl Rapide sutures. Dimensions were obtained and these are OPERATIVE REPORT [id number] SONG MACKENZIE listed above. I then packed the wound with 0.25 strength Dakin's-soaked Kerlix. This was a 4-inch Kerlix. A bulky dressing was then applied. The patient was then extubated and conveyed to the post-anesthesia care unit, where he was in stable condition. I am going to plan for him to be dismissed home tomorrow with home healthcare, who will perform daily packing changes. TRANSINT:[id number] Voice Confirmation ID: [id number] DOCUMENT ID: [id number] PANDA BOB MD at 0935 CC: [id number] DICTATION DATE: 11/15/18 1444 METAL FORGER'S ASSISTANT: 11/15/18 1812 ADM IN [facility] [address] [place] [address]
--- NOTE | 2018-11-16 10:57 | MORECARE ---
CASE MANAGEMENT DISCHARGE SUMMARY PATIENT: SONG MACKENZIE MARY UNIT: [id number] ADM DATE: 11/13/18 AGE: 63 : 57 SEX: M ROOM/BED: D.2227 AUTHOR: TRISTEN TORO PHYSICIAN: REFERRING PHYSICIAN: EVAN JACOBO MD DATE OF SERVICE: 11/16/18 Discharge Plan Patient Name: SONG MACKENZIE Facility: [facility]:[place] : 1955 Planned Disposition: Home with Home Health Anticipated Discharge Date: Discharge Date: Expected LOS: Initial Reviewer: [email or web address] Initial Review Date: 11/16/2018 Generated: 11/16/18 11:57 am Patient Name: SONG MACKENZIE Page [phone] at 1057 All edits/amendments must be made on the electronic document DICTATION DATE: 11/16/18 1056 CLINICAL EXERCISE SPECIALIST: TRICIA 11/16/18 1056 RPT#: [id number] DC DATE: STATUS: ADM IN [facility] [address] [place] [address] END OF REPORT
--- NOTE | 2018-11-16 11:08 | MORECARE ---
CASE MANAGEMENT DISCHARGE SUMMARY PATIENT: SONG MACKENZIE MARY UNIT: [id number] ADM DATE: 11/13/18 AGE: 63 : 57 SEX: M ROOM/BED: D.2227 AUTHOR: TRISTEN TORO PHYSICIAN: REFERRING PHYSICIAN: EVAN JACOBO MD DATE OF SERVICE: 11/16/18 Discharge Plan Patient Name: SONG MACKENZIE Facility: [facility]:[place] : 1955 Planned Disposition: Home with Home Health Anticipated Discharge Date: Discharge Date: Expected LOS: Initial Reviewer: [email or web address] Initial Review Date: 11/16/2018 Generated: 11/16/18 12:07 pm DCPIA - Discharge Planning Initial Assessment Updated by [email or web address]: Yenny Ruiz on 11/16/18 11:00 am * Is the patient Alert and Oriented? Yes * How many steps to enter\exit or inside your home? 2/0 * PCP Brett * Pharmacy [facility] in [place] or [facility] * Preadmission Environment Home with Family * ADLs Independent * Equipment Cane Walker * List name and contact numbers for known caregivers / representatives who currently or will assist patient after discharge: Naty [facility] - [phone] or [phone] * Verbal permission to speak to the caregivers and representatives has been obtained from the patient. Yes * Community resources currently utilized None * Additional services required to return to the preadmission environment? Yes * Can the patient safely return to the preadmission environment? Yes * Has this patient been hospitalized within the prior 30 days at any hospital? No Last DP export: 11/16/18 9:57 am Patient Name: SONG MACKENZIE Page [id number] at 1108 All edits/amendments must be made on the electronic document DICTATION DATE: 11/16/181106 BORING AND FILLING MACHINE OPERATOR: TRICIA 11/16/181106 RPT#: [id number] DC DATE: STATUS: ADM IN [facility] [address] [place] [address] END OF REPORT
--- NOTE | 2018-11-16 11:18 | MORECARE ---
CASE MANAGEMENT DISCHARGE SUMMARY PATIENT: SONG MACKENZIE MARY UNIT: [id number] ADM DATE: 11/13/18 AGE: 63 : 57 SEX: M ROOM/BED: D.2227 AUTHOR: CORTEZ,DOC PHYSICIAN: REFERRING PHYSICIAN: EVAN JACOBO MD DATE OF SERVICE: 11/16/18 Discharge Plan Patient Name: SONG MACKENZIE Facility: [facility]:[place] : 1955 Planned Disposition: Home with Home Health Anticipated Discharge Date: Discharge Date: Expected LOS: Initial Reviewer: [email or web address] Initial Review Date: 11/16/2018 Generated: 11/16/18 12:17 pm Comments DCP- Discharge Planning Updated by [email or web address]: Yenny Ruiz on 11/16/18 10:[address] Patient Name: SONG MACKENZIE Admission Status: ER Accout number: [id number] Admission Date: 11-13-2018 : 1955 Admission Diagnosis: Attending: EVAN JACOBO Current LOS: 3 Anticipated DC Date: Planned Disposition: Home with Home Health Primary Insurance: [employer] CHOICE PPO MCR ADVANT Discharge Planning Comments: Received a call from this am. States she would like to have [facility] for home health for daily wound packings with saline guaze. I spoke with Laura and clinical faxed. He is independent at home. states he has a cane and walker, but does not use them. I discussed availability of rehab and DME, she declines need. CM will continue to follow and assist with discharge planning/needs. Horticultural Manager: Yenny Ruiz DCPIA - Discharge Planning Initial Assessment Updated by [email or web address]: Yenny Ruiz on 11/16/18 11:00 am * Is the patient Alert and Oriented? Yes * How many steps to enter\exit or inside your home? 2/0 * PCP Brett * Pharmacy [facility] [place] or [facility] * Preadmission Environment Home with Family * ADLs Independent * Equipment Cane Walker * List name and contact numbers for known caregivers / representatives who currently or will assist patient after discharge: Naty - - [phone] or [phone] * Verbal permission to speak to the caregivers and representatives has been obtained from the patient. Yes * Community resources currently utilized None * Additional services required to return to the preadmission environment? Yes * Can the patient safely return to the preadmission environment? Yes * Has this patient been hospitalized within the prior 30 days at any hospital? No Coverage Notice Reviewer: [email or web address] Anjel Ruiz Notice Issued Date-Time: 11/16/2018 9:45 Notice Type: Patient Choice Letter Notice Delivered To: Family Member Relationship to Patient: Spouse P[employer] Pieces Necktie Operator Name: Naty Mackenzie Delivery Method: PHONE - Phone Ce Days: Prior Verbal Notification: Recipient Understood Notice: Yes Recipient Signature: Med Rec Note Co-signed by Attending: Coverage Notice Comment: HERMAN for [facility] Last DP export: 11/16/18 10:08 am Patient Name: SONG MACKENZIE Page [phone] at 1118 All edits/amendments must be made on the electronic document DICTATION DATE: 11/16/181116 INCOME TAX ANALYST: TRICIA 11/16/181116 RPT#: [id number] DC DATE: STATUS: ADM IN [facility] [address] [place] [address] END OF REPORT
--- NOTE | 2018-11-16 11:40 | MORECARE ---
CASE MANAGEMENT DISCHARGE SUMMARY PATIENT: SONG MACKENZIE MARY UNIT: [id number] ADM DATE: 11/13/18 AGE: 63 : 57 SEX: M ROOM/BED: D.2227 AUTHOR: CORTEZ,DOC PHYSICIAN: REFERRING PHYSICIAN: EVAN JACOBO MD DATE OF SERVICE: 11/16/18 Discharge Plan Patient Name: SONG MACKENZIE Facility: [facility]:[place] : 1955 Planned Disposition: Home with Home Health Anticipated Discharge Date: Discharge Date: Expected LOS: Initial Reviewer: [email or web address] Initial Review Date: 11/16/2018 Generated: 11/16/18 12:40 pm Comments DCP- Discharge Planning Updated by [email or web address]: Yenny Ruiz on 11/16/18 10:[address] Patient Name: SONG MACKENZIE Admission Status: ER Accout number: [id number] Admission Date: 11-13-2018 : 1955 Admission Diagnosis: Attending: EVAN JACOBO Current LOS: 3 Anticipated DC Date: Planned Disposition: Home with Home Health Primary Insurance: [employer] CHOICE PPO MCR ADVANT Discharge Planning Comments: Received a call from this am. States she would like to have [facility] for home health for daily wound packings with saline guaze. I spoke with Laura and clinical faxed. He is independent at home. states he has a cane and walker, but does not use them. I discussed availability of rehab and DME, she declines need. CM will continue to follow and assist with discharge planning/needs. Railway Track Worker: Yenny Ruiz DCPIA - Discharge Planning Initial Assessment Updated by [id number]: Yenny Ruiz on 11/16/18 11:00 am * Is the patient Alert and Oriented? Yes * How many steps to enter\exit or inside your home? 2/0 * PCP Brett * Pharmacy [facility] [place] or [facility] * Preadmission Environment Home with Family * ADLs Independent * Equipment Cane Walker * List name and contact numbers for known caregivers / representatives who currently or will assist patient after discharge: Naty - - [phone] or [phone] * Verbal permission to speak to the caregivers and representatives has been obtained from the patient. Yes * Community resources currently utilized None * Additional services required to return to the preadmission environment? Yes * Can the patient safely return to the preadmission environment? Yes * Has this patient been hospitalized within the prior 30 days at any hospital? No External Providers External Provider: [facility] Next Contact Date: Service Request Date: Service Type: Resolution: Reviewer: Comments: Coverage Notice Reviewer: [email or web address] Anjel Ruiz Notice Issued Date-Time: 11/16/2018 9:45 Notice Type: Patient Choice Letter Notice Delivered To: Family Member Relationship to Patient: Spouse Vocational Adviser Name: Naty Mackenzie Delivery Method: PHONE - Phone Ce Days: Prior Verbal Notification: Recipient Understood Notice: Yes Recipient Signature: Med Rec Note Co-signed by Attending: Coverage Notice Comment: HERMAN for [facility] Last DP export: 11/16/18 10:18 am Patient Name: SONG MACKENZIE Page [phone] at 1140 All edits/amendments must be made on the electronic document DICTATION DATE: 11/16/18 1140 HAND BENDER: TRICIA 11/16/18 1140 RPT#: [id number] DC DATE: STATUS: ADM IN [facility] [address] [place] [address] END OF REPORT
[2018-11-16 12:54] VITALS: BP 125/60
[2018-11-16 13:02] LABS: BASOPHILS 0.4 % (0-2); EOSINOPHILS 2.8 % (0-7); HEMATOCRIT 34.5 % (42.0-54.0); HEMOGLOBIN 12.1 g/dL (13.5-17.5); IMMATURE GRANULOCYTES 0.2 % (0-5); LYMPHOCYTES 33.3 % (15-50); MCH 27.8 pg (26.0-34.0); MCHC 35.1 g/dL (31.0-37.0); MCV 79.1 fL (80.0-100.0); MEAN PLATELET VOLUME 11.3 fL (7.4-10.4); MONOCYTES 9.8 % (2-11); NEUTROPHILS 53.5 % (40-80); PLATELET COUNT 138 10x3/uL (130-400); RBC 4.36 10x6/uL (4.20-6.10); RDW 14.3 % (11.5-14.5); WBC 5.1 10x3/uL (4.8-10.8)
[2018-11-16 13:15] LABS: ALKALINE PHOSPHATASE 310 U/L (46-116); ALT (SGPT) 68 U/L (10-68); BILIRUBIN - TOTAL 1.05 mg/dL (0.2-1.3); CALCIUM 8.3 mg/dL (8.5-10.1); CARBON DIOXIDE 26.4 mmol/L (21.0-32.0); CHLORIDE - SERUM 105 mmol/L (98-107); CREATININE - SERUM 0.7 mg/dL (0.6-1.3); GLUCOSE 85 mg/dL (74-106); POTASSIUM - SERUM 3.4 mmol/L (3.5-5.1); SODIUM 141 mmol/L (136-145); eGFR NON AFRICAN AMERICAN > 90 mL/min (90-120)
[2018-11-16 13:20] LABS: CALC OSMOLALITY 276 mosm/kg (275-300); UREA NITROGEN 4 mg/dL (7-18)
--- NOTE | 2018-11-16 17:15 | NUR ---
PT RESTING IN BED. NO SIGNS OF DISTRESS. IV TO RIGHT AC PATENT NO REDNESS OR TENDRNESS. DRESSING TO BUTTOCKS CLEAN AND INTACT. COMPLAINS OF PAIN. MEDICATIONS GIVEN. DENIES ANY OTHER NEED AT THIS TIME. CALL LIGHT IN REACH. BED LOW POSITION. NO FAMILY AT BEDSIDE AT THIS TIME.
[2018-11-16 17:42] VITALS: BP 129/66
--- NOTE | 2018-11-16 19:43 | NUR ---
LYING IN BED WITH EYES OPEN AND TELEVISION ON, ABLE TO VOICE ALL NEEDS. DENIES PAIN AT THIS TIME. IV TO RIGHT AC PATENT WITH NS AT 125/HR AND DIALUDID [employer] APPLICATION DEVELOPER PER ORDERS. POTASSIUM LEVEL OF 3.4 ON LABS TIMED 1824, COVERED WITH 40MEQ PER ORDERS, ALSO ORDERED MAGNESIUM SERUM LEVEL TO BE DRAWN IN A.M. WILL NOTE ANY CHANGE.
[2018-11-16 21:10] VITALS: BP 130/69
[2018-11-17 01:18] VITALS: BP 151/79
--- NOTE | 2018-11-17 03:44 | NUR ---
RESTING QUIETLY IN BED WITH EYES CLOSED. SHOWS NO S/S OF ANY ACUTE DISTRESS. ANTIBIOTICS HUNG PER ORDERS, WILL NOTE ANY CHANGE.
--- NOTE | 2018-11-17 03:56 | NUR ---
I have reviewed this patient and I concur with the Shift Assessment completed by the Licensed Practical Nurse today this shift.
[2018-11-17 04:29] LABS: BASOPHILS 0.4 % (0-2); EOSINOPHILS 4.7 % (0-7); HEMATOCRIT 32.9 % (42.0-54.0); HEMOGLOBIN 11.4 g/dL (13.5-17.5); IMMATURE GRANULOCYTES 0.6 % (0-5); LYMPHOCYTES 40.2 % (15-50); MCH 27.3 pg (26.0-34.0); MCHC 34.7 g/dL (31.0-37.0); MCV 78.9 fL (80.0-100.0); MEAN PLATELET VOLUME 11.6 fL (7.4-10.4); MONOCYTES 11.9 % (2-11); NEUTROPHILS 42.2 % (40-80); PLATELET COUNT 165 10x3/uL (130-400); RBC 4.17 10x6/uL (4.20-6.10); RDW 14.3 % (11.5-14.5); WBC 4.9 10x3/uL (4.8-10.8)
[2018-11-17 04:37] LABS: ALBUMIN 2.7 g/dL (3.4-5.0); ALKALINE PHOSPHATASE 241 U/L (46-116); BILIRUBIN - TOTAL 0.89 mg/dL (0.2-1.3); CALC OSMOLALITY 277 mosm/kg (275-300); CALCIUM 8.1 mg/dL (8.5-10.1); CARBON DIOXIDE 24.4 mmol/L (21.0-32.0); CHLORIDE - SERUM 107 mmol/L (98-107); CREATININE - SERUM 0.7 mg/dL (0.6-1.3); GLUCOSE 92 mg/dL (74-106); MAGNESIUM - SERUM 1.6 mg/dL (1.8-2.4); POTASSIUM - SERUM 3.5 mmol/L (3.5-5.1); PROTEIN - SERUM 5.5 g/dL (6.4-8.2); SODIUM 141 mmol/L (136-145); UREA NITROGEN 3 mg/dL (7-18); eGFR NON AFRICAN AMERICAN > 90 mL/min (90-120)
[2018-11-17 04:53] LABS: ALT (SGPT) 46 U/L (10-68)
[2018-11-17 05:22] VITALS: BP 139/70
[2018-11-17 08:43] VITALS: BP 144/73
--- NOTE | 2018-11-17 09:53 | EC ---
PATIENT:SONG MACKENZIE DATE OF SERVICE: 11/13/18 SEX: M MEDICAL RECORD: [id number] DATE OF : [birth year] LOCATION:D.MS [place] AGE OF PATIENT: 63 ADMISSION DATE: 11/13/18 REFERRING PHYSICIAN: INTERPRETING PHYSICIAN: IRENE FRANKLIN MD ECHOCARDIOGRAM REPORT ECHO CHARGES 4 ECHO COMPLETE Date: 11/14/18 CLINICAL DIAGNOSIS: PERICARDIAL EFFUSION ECHOCARDIOGRAPHIC MEASUREMENTS (adult normal given) AC root (d.<3.7cm) 4.1 cm LV Septum d (<1.2 cm> 1.5 cm Valve Excursion 2.0 cm LV Septum (systole) 1.9 cm Left Atria (s.<4.0cm> 4.5 cm LVPW d(<1.2cm) 1.3 cm RV (d.<2.3cm) 4.9 cm LVPW (sytole) 1.9 cm LV diastole(<5.6CM) 6.1 cm MV E-F(>70mm/sec) cm LV systole 3.6 cm LVOT Diameter 2.2 cm MV exc.(>10mm) 1.9 cm Est.ejection fraction (50-75%) % DOPPLER: LVIT cm/sec A 50.0 cm/sec E 60.0 cm/sec LA cm/sec RVSP 24 mmHg LVOT 100 cm/sec AOP1/2T m/s Asc. Ao 172 cm/sec RVOT 61 cm/sec RA cm/sec PA 90 cm/sec AV Gradient Peak 11.89mmHg AV Mean 8.34 mmHg AV Area 1.7 cm MV Gradient Peak 3.36 mmHg MV Mean 1.23 mmHg MV Area cm COMMENTS: Bruise Trimmer: 2 MAREK JACKSON Retail Customer Service Representative: 1 Dr. Franklin TAPE# PACS Pericardial Effusion Y DATE OF SERVICE: FINDINGS: 1. Left ventricular chamber size is within normal limits. Left ventricular systolic function is normal. Overall ejection fraction is estimated at 60%. 2. Left atrium is enlarged at 4.1 cm. Right atrium and right ventricular chamber sizes are as well mildly dilated. 3. Valvular structures have normal structure and motion. 4. Doppler interrogation only reveals trace tricuspid regurgitation. No other valvular insufficiency or stenosis. ECHOCARDIOGRAM REPORT [id number] SONG MACKENZIE 5. Sijjr-oj-qmvcl pericardial effusion is present. This is not hemodynamically significant. No evidence of left ventricular thrombus. TRANSINT:[id number] Voice Confirmation ID: [id number] DOCUMENT ID: [id number] IRENE FRANKLIN MD at 0953 CC: [id number] DICTATION DATE: 11/15/18 1256 PRESS BOX CUSTODIAN: 11/15/18 1709 ADM IN [facility] [address] [place] [id number]
[2018-11-17] MEDS ORDERED: DOXYCYCLINE HY100 M2 PO (10:54)
--- NOTE | 2018-11-17 11:38 | MORECARE ---
CASE MANAGEMENT DISCHARGE SUMMARY PATIENT: SONG MACKENZIE MARY UNIT: [id number] ADM DATE: 11/13/18 AGE: 63 : 57 SEX: M ROOM/BED: D.2227 AUTHOR: TRISTEN TORO PHYSICIAN: REFERRING PHYSICIAN: EVAN JACOBO MD DATE OF SERVICE: 11/17/18 Discharge Plan Patient Name: SOGN MACKENZIE Facility: [facility]:[place] : 1955 Planned Disposition: Home with Home Health Anticipated Discharge Date: Discharge Date: Expected LOS: Initial Reviewer: [id number] Initial Review Date: 11/16/2018 Generated: 11/17/18 12:38 pm Comments DCP- Discharge Planning Updated by [id number]: Yennygermán Ruiz on 11/17/18 10:[address] Patient Name: SONG MACKENZIE Encounter No: [id number] : 1955 Primary Insurance: [employer] CHOICE PPO MCR ADVANT Anticipated DC Date: Planned Disposition: Home with Home Health External Planned Provider: : DCP follow-up note: Patient and family in agreement with discharge plan. No changes to plan. I spoke with Laura at [facility] and they will see tomorrow. I called his after meeting with patient and she states to have the nurse call her when he is ready for discharge, wellness program coordinator informed and 's number written down for the nurse to call. Case management will follow and assist as needed. Yenny Ruiz DCP- Discharge Planning Updated by [email or web address]: Yenny Joseph on 11/16/18 10:[address] Patient Name: SONG MACKENZIE Admission Status: ER Accout number: [id number] Admission Date: 11-13-2018 : 1955 Admission Diagnosis: Attending: EVAN JACOBO Current LOS: 3 Anticipated DC Date: Planned Disposition: Home with Home Health Primary Insurance: [employer] CHOICE PPO MCR ADVANT Discharge Planning Comments: Received a call from this am. States she would like to have [facility] for home health for daily wound packings with saline guaze. I spoke with Laura and clinical faxed. He is independent at home. states he has a cane and walker, but does not use them. I discussed availability of rehab and DME, she declines need. CM will continue to follow and assist with discharge planning/needs. Administrative Personal Assistant: Yenny Ruiz DCPIA - Discharge Planning Initial Assessment Updated by [id number]: Yenny Joseph on 11/16/18 11:00 am * Is the patient Alert and Oriented? Yes * How many steps to enter\exit or inside your home? 2/0 * PCP [facility] * [facility]acy [facility] * Preadmission Environment Home with Family * ADLs Independent * Equipment Cane Walker * List name and contact numbers for known caregivers / representatives who currently or will assist patient after discharge: Naty Hobbs - [phone] or [phone] * Verbal permission to speak to the caregivers and representatives has been obtained from the patient. Yes * Community resources currently utilized None * Additional services required to return to the preadmission environment? Yes * Can the patient safely return to the preadmission environment? Yes * Has this patient been hospitalized within the prior 30 days at any hospital? No Coverage Notice Reviewer: [id number] Anjel Ruiz Notice Issued Date-Time: 11/16/2018 9:45 Notice Type: Patient Choice Letter Notice Delivered To: Family Member Relationship to Patient: Spouse Hearing Aid Consultant Name: Naty Mackenzie Delivery Method: PHONE - Phone Ce Days: Prior Verbal Notification: Recipient Understood Notice: Yes Recipient Signature: Med Rec Note Co-signed by Attending: Coverage Notice Comment: [facility] lucero Torres [facility] Reviewer: [id number] Anjel Ruiz Notice Issued Date-Time: 11/17/2018 11:28 Notice Type: IM Discharge Notice Notice Delivered To: Patient Relationship to Patient: Self Hearing Aid Consultant Name: Delivery Method: HAND - Hand Delivered Ce Days: Prior Verbal Notification: Recipient Understood Notice: Yes Recipient Signature: Yes Med Rec Note Co-signed by Attending: Coverage Notice Comment: IMM explained, signed, given, copy placed in MR Last DP export: 11/16/18 10:41 am Patient Name: SONG MACKENZIE Page 18669 at 1138 All edits/amendments must be made on the electronic document DICTATION DATE: 11/17/18 1139 METAL MINER BLASTING: TRICIA 11/17/18 1135 RPT#: [id number] DC DATE: STATUS: ADM IN [facility] [address] [place] [address] END OF REPORT
[2018-11-17 12:04] VITALS: BP 134/80
--- NOTE | 2018-11-17 13:51 | NUR ---
DISCHARGE INSTRUCTIONS GIVEN. SEEMS TO UNDERSTAND IV OUT TIP INTACT. LEFT THE [facility] STAFF TO GO HOME WITH HOME HEALTH.
--- NOTE | 2018-11-17 15:57 | MORECARE ---
CASE MANAGEMENT DISCHARGE SUMMARY PATIENT: SONG MACKENZIE MARY UNIT: [id number] ADM DATE: 11/13/18 AGE: 63 : 57 SEX: M ROOM/BED: D.2227 AUTHOR: TRISTEN TORO PHYSICIAN: REFERRING PHYSICIAN: EVAN JACOBO MD DATE OF SERVICE: 11/17/18 Discharge Plan Patient Name: SONG MACKENZIE Facility: [facility]:[place] : 1955 Planned Disposition: Home with Home Health Anticipated Discharge Date: Discharge Date: 11/17/2018 Expected LOS: Initial Reviewer: [id number] Initial Review Date: 11/16/2018 Generated: 11/17/18 4:57 pm Comments DCP- Discharge Planning Updated by [email or web address]: Yenny Colónjo on 11/17/18 10:[address] Patient Name: SONG MACKENZIE Encounter No: [id number] : 1955 Primary Insurance: [employer] CHOICE PPO MCR ADVANT Anticipated DC Date: Planned Disposition: Home with Home Health External Planned Provider: : DCP follow-up note: Patient and family in agreement with discharge plan. No changes to plan. I spoke with Laura at [facility] and they will see tomorrow. I called his after meeting with patient and she states to have the nurse call her when he is ready for discharge, accounts payable payroll coordinator informed and 's number written down for the nurse to call. Case management will follow and assist as needed. Yenny Joseph DCP- Discharge Planning Updated by [id number]: Yenny Colónjo on 11/16/18 10:[address] Patient Name: SONG MACKENZIE Admission Status: ER Accout number: [id number] Admission Date: 11-13-2018 : 1955 Admission Diagnosis: Attending: EVAN JACOBO Current LOS: 3 Anticipated DC Date: Planned Disposition: Home with Home Health Primary Insurance: [employer] CHOICE PPO MCR ADVANT Discharge Planning Comments: Received a call from this am. States she would like to have [facility] for home health for daily wound packings with saline guaze. I spoke with Laura and clinical faxed. He is independent at home. states he has a cane and walker, but does not use them. I discussed availability of rehab and DME, she declines need. CM will continue to follow and assist with discharge planning/needs. Military Administrative Technician: Yenny Ruiz DCPIA - Discharge Planning Initial Assessment Updated by [id number]: Yenny Joseph on 11/16/18 11:00 am * Is the patient Alert and Oriented? Yes * How many steps to enter\exit or inside your home? 2/0 * PCP [facility] * Pharmacy [facility] * Preadmission Environment Home with Family * ADLs Independent * Equipment Cane Walker * List name and contact numbers for known caregivers / representatives who currently or will assist patient after discharge: Naty veliz - [phone] or [phone] * Verbal permission to speak to the caregivers and representatives has been obtained from the patient. Yes * Community resources currently utilized None * Additional services required to return to the preadmission environment? Yes * Can the patient safely return to the preadmission environment? Yes * Has this patient been hospitalized within the prior 30 days at any hospital? No Coverage Notice Reviewer: [id number] Anjel Ruiz Notice Issued Date-Time: 11/16/2018 9:45 Notice Type: Patient Choice Letter Notice Delivered To: Family Member Relationship to Patient: Spouse Banquet Server Name: Naty Mackenzie Delivery Method: PHONE - Phone Ce Days: Prior Verbal Notification: Recipient Understood Notice: Yes Recipient Signature: Med Rec Note Co-signed by Attending: Coverage Notice Comment: [facility] Reviewer: [id number] Anjel Ruiz Notice Issued Date-Time: 11/17/2018 11:28 Notice Type: IM Discharge Notice Notice Delivered To: Patient Relationship to Patient: Self Banquet Server Name: Delivery Method: HAND - Hand Delivered Ce Days: Prior Verbal Notification: Recipient Understood Notice: Yes Recipient Signature: Yes Med Rec Note Co-signed by Attending: Coverage Notice Comment: IMM explained, signed, given, copy placed in MR Last DP export: 11/17/18 10:38 am Patient Name: SONG MACKENZIE Page 22517 at 1983 All edits/amendments must be made on the electronic document DICTATION DATE: 11/17/18 5454 EVENT AV OPERATOR: TRICIA 11/17/18 1557 RPT#: [id number] DC DATE:11/17/18 STATUS: DIS IN [facility] [address] [place] [address] END OF REPORT
== END 2018-11-17 13:52 | disposition home health service (06) | DRG 571 ==
LOC: D.ER 19:55 → D.MS 23:55
PROVIDERS: Emergency Medicine; Family Medicine; Surgery; ADMIT Internal Medicine Nephrology; ATTEND Internal Medicine Nephrology
PROC: 0JB70ZZ Excision of Back Subcutaneous Tissue and Fascia, Open Approach (ICD-10-PCS; principal; 2018-11-15 08:19)
DX: L05.01 Pilonidal cyst with abscess (principal); L03.818 Cellulitis of other sites; I31.3 Pericardial effusion (noninflammatory); R13.10 Dysphagia, unspecified; E87.6 Hypokalemia; G62.9 Polyneuropathy, unspecified

== ENCOUNTER 2019-04-27 11:41 | Inpatient (IN) | payer MEDICARE, OTHER ==
[~2019-04-27] VITALS: Ht 175.3 cm; Wt 77.1 kg
[~2019-04-27 11:41] MED LIST changes: +DOXYCYCLINE HY100 M2 PO
[2019-04-27 12:34] LABS: BASOPHILS 0.7 % (0-2); EOSINOPHILS 6.3 % (0-7); HEMATOCRIT 43.9 % (42.0-54.0); HEMOGLOBIN 14.9 g/dL (13.5-17.5); IMMATURE GRANULOCYTES 0.3 % (0-5); LYMPHOCYTES 27.5 % (15-50); MCH 28.1 pg (26.0-34.0); MCHC 33.9 g/dL (31.0-37.0); MCV 82.8 fL (80.0-100.0); MEAN PLATELET VOLUME 10.7 fL (7.4-10.4); MONOCYTES 7.8 % (2-11); NEUTROPHILS 57.4 % (40-80); RDW 13.8 % (11.5-14.5); WBC 5.9 10x3/uL (4.8-10.8)
[2019-04-27 12:36] LABS: APPEARANCE CLEAR (CLEAR); BILIRUBIN NEGATIVE (NEGATIVE); COLOR STRAW (YELLOW); GLUCOSE NEGATIVE (NEGATIVE); KETONE NEGATIVE (NEGATIVE); NITRITE NEGATIVE (NEGATIVE); PROTEIN NEGATIVE (NEGATIVE); SPECIFIC GRAVITY 1.005 (1.005-1.020); UROBILINOGEN NORMAL (NORMAL)
[2019-04-27 12:37] LABS: CALC OSMOLALITY 282 mosm/kg (275-300); CALCIUM 9.6 mg/dL (8.5-10.1); CARBON DIOXIDE 33.5 mmol/L (21.0-32.0); CHLORIDE - SERUM 103 mmol/L (98-107); CREATININE - SERUM 1.1 mg/dL (0.6-1.3); GLUCOSE 102 mg/dL (74-106); POTASSIUM - SERUM 4.5 mmol/L (3.5-5.1); SODIUM 141 mmol/L (136-145); UREA NITROGEN 18 mg/dL (7-18); eGFR NON AFRICAN AMERICAN 72 mL/min (90-120)
[2019-04-27 12:39] LABS: PLATELET COUNT 206 10x3/uL (130-400)
[2019-04-27 12:52] LABS: APTT 32.8 SECONDS (22.8-39.4); INR 0.96 (0.85-1.17); PROTIME 12.7 SECONDS (11.6-15.0)
[2019-04-27 13:05] LABS: ALKALINE PHOSPHATASE 76 U/L (46-116); ALT (SGPT) 23 U/L (10-68); AMYLASE - SERUM 31 U/L (25-115); BILIRUBIN - TOTAL 0.57 mg/dL (0.2-1.3); LIPASE 141 U/L (73-393); PROTEIN - SERUM 7.2 g/dL (6.4-8.2)
[2019-04-27 13:11] LABS: TROPONIN-I < 0.017 ng/mL (0.000-0.060)
[2019-04-27 13:12] LABS: CKMB 0.7 U/L (0.0-3.6); CREATINE KINASE 53 UL (21-232); MAGNESIUM - SERUM 1.9 mg/dL (1.8-2.4)
[2019-04-27 16:33] VITALS: BP 129/82
--- NOTE | 2019-04-27 16:35 | NUR ---
NS BOLUS STOP TIME 1925.
--- NOTE | 2019-04-27 17:37 | NUR ---
PT ARRIVED TO FLOOR. 20G IV NOTED TO LEFT WRIST, SL AT THIS TIME. PT STATES SEVERE PAIN IN RUQ. WILL RECIEVE PAIN MEDICATION PER ORDER. DENIES FURTHER NEEDS AT THIS TIME. RR EVEN AND UNLBAORED ON ROOM AIR. BED IN LOWEST POSITION. CALL LIGHT WITHIN REACH. WILL CONTINUE TO MONITOR.
[2019-04-27 18:00] VITALS: BMI 25.1
--- NOTE | 2019-04-27 18:04 | NUR ---
DR JACOBO ORDERED COMPLETE ABD TO CHECK PORTAL VEIN POSS THROMBOSIS I CALLED HIM AND GOT VERBAL ORDER FOR DOPPLER LTD ABD ALSO WHICH HE APPROVED. WALTER SHARMA
[2019-04-27 20:00] VITALS: BP 138/60
--- NOTE | 2019-04-27 20:00 | NUR ---
ALERT RESTING IN BED, REPORTS ABD PAIN BETTER AFTER DILAUDID, SEE SHIFT ASSESSMENT CALL LIGHT IN REACH
[2019-04-28 00:39] VITALS: BP 126/62
[2019-04-28 04:00] VITALS: BP 115/68
[2019-04-28 05:17] LABS: BASOPHILS 0.4 % (0-2); EOSINOPHILS 4.1 % (0-7); HEMATOCRIT 40.3 % (42.0-54.0); HEMOGLOBIN 13.5 g/dL (13.5-17.5); IMMATURE GRANULOCYTES 0.2 % (0-5); LYMPHOCYTES 20.7 % (15-50); MCH 27.7 pg (26.0-34.0); MCHC 33.5 g/dL (31.0-37.0); MCV 82.8 fL (80.0-100.0); MEAN PLATELET VOLUME 10.9 fL (7.4-10.4); NEUTROPHILS 63.6 % (40-80); PLATELET COUNT 169 10x3/uL (130-400); RBC 4.87 10x6/uL (4.20-6.10); RDW 13.8 % (11.5-14.5); WBC 4.8 10x3/uL (4.8-10.8)
[2019-04-28 05:51] LABS: ALBUMIN 3.4 g/dL (3.4-5.0); ALKALINE PHOSPHATASE 216 U/L (46-116); BILIRUBIN - TOTAL 1.12 mg/dL (0.2-1.3); CALC OSMOLALITY 277 mosm/kg (275-300); CALCIUM 8.4 mg/dL (8.5-10.1); CARBON DIOXIDE 29.2 mmol/L (21.0-32.0); CHLORIDE - SERUM 104 mmol/L (98-107); GLUCOSE 87 mg/dL (74-106); POTASSIUM - SERUM 3.9 mmol/L (3.5-5.1); PROTEIN - SERUM 6.5 g/dL (6.4-8.2); SODIUM 139 mmol/L (136-145); UREA NITROGEN 15 mg/dL (7-18); eGFR NON AFRICAN AMERICAN 80 mL/min (90-120)
[2019-04-28 06:11] LABS: ALT (SGPT) 618 U/L (10-68)
--- NOTE | 2019-04-28 07:10 | NUR ---
PT RESTING IN BED. NO SIGNS OF DISTRESS. IV TO LEFT WRIST PATENT NO REDNESS OR TENDERNESS. COMPLAINS OF ABDOMEN PAIN. WILL ADDRESS. DENIES ANY FURTHER NEED AT THIS TIME. CALL LIGHT IN REACH. BED LOW POSITION. NO FAMILY AT BEDSIDE AT THIS TIME.
[2019-04-28 08:13] VITALS: BP 120/68
[2019-04-28 11:03] VITALS: Ht 175.3 cm; Wt 77.1 kg
[2019-04-28 13:05] VITALS: BP 117/63
--- NOTE | 2019-04-28 13:55 | NUR ---
I have reviewed this patient and I concur with the Shift Assessment completed by the Licensed Practical Nurse today this shift.
[2019-04-28 16:33] VITALS: BP 110/65
--- NOTE | 2019-04-28 19:00 | NUR ---
BEDSIDE REPORT RECEIVED AND CARE OF PT ASSUMED. PT LYING IN SUPINE POSITION WITH EYES CLOSED. IV TO LEFT WRIST PATENT WITH NS INFUSING AT 75 ML/HR. PT REQUESTING PAIN MED.
--- NOTE | 2019-04-28 19:10 | NUR ---
GAVE NOR[facility] PO PER ORDER, PER REQUEST FOR PAIN. WILL MONITOR FOR EFFECTIVENESS.
[2019-04-28 20:00] VITALS: BP 92/60
--- NOTE | 2019-04-28 21:50 | NUR ---
HS MEDICATIONS GIVEN. PT C/O HEADACHE....HOPING SCHEDULED TORADOL WILL HELP RELEIVE.
[2019-04-29 04:00] VITALS: BP 148/55; BP 96/51
[2019-04-29 05:35] LABS: BASOPHILS 0.5 % (0-2); EOSINOPHILS 8.5 % (0-7); HEMATOCRIT 36.4 % (42.0-54.0); IMMATURE GRANULOCYTES 0.2 % (0-5); LYMPHOCYTES 37.8 % (15-50); MCH 27.3 pg (26.0-34.0); MCV 82.9 fL (80.0-100.0); MEAN PLATELET VOLUME 10.8 fL (7.4-10.4); MONOCYTES 9.9 % (2-11); NEUTROPHILS 43.1 % (40-80); PLATELET COUNT 153 10x3/uL (130-400); RBC 4.39 10x6/uL (4.20-6.10); WBC 4.1 10x3/uL (4.8-10.8)
[2019-04-29 05:50] LABS: CALC OSMOLALITY 280 mosm/kg (275-300); CALCIUM 8.2 mg/dL (8.5-10.1); CARBON DIOXIDE 28.1 mmol/L (21.0-32.0); CHLORIDE - SERUM 107 mmol/L (98-107); GLUCOSE 86 mg/dL (74-106); POTASSIUM - SERUM 3.9 mmol/L (3.5-5.1); SODIUM 141 mmol/L (136-145); UREA NITROGEN 14 mg/dL (7-18); eGFR NON AFRICAN AMERICAN 80 mL/min (90-120)
[2019-04-29 07:52] VITALS: BP 106/59
[2019-04-29 07:54] LABS: BILIRUBIN - DIRECT 0.13 mg/dL (0.00-0.30); BILIRUBIN - INDIRECT 0.56 mg/dL (0.00-1.00); BILIRUBIN - TOTAL 0.69 mg/dL (0.2-1.3); PROTEIN - SERUM 5.8 g/dL (6.4-8.2)
[2019-04-29 12:14] VITALS: BP 121/74
[2019-04-29 16:33] VITALS: BP 137/79
[2019-04-29 20:00] VITALS: BP 124/72
[2019-04-30] VITALS: BP 143/89
--- NOTE | 2019-04-30 00:27 | NUR ---
ASSESSED AT THE BEGINNING OF THE SHIFT. PT IS ALERT AND ORIENTED, ABLE TO VERBALIZE NEEDS. HE IS ABLE TO GET UP TO THE BATHROOM AD NOMAN AND HAS NOT REQUESTED ANY PAIN MEDS. HE IS GETTING TORADOL ORDERED. TWICE WHEN BEING WITH PATIENT IT WAS NOTED THAT HE WAS SHIVERING. WHEN ASKED IF HE WAS COLD HE STATES NO. BLANKETS WERE OFFERED AND TURNED DOWN. AT THIS TIME HE IS ASLEEP WITH [employer] RESPIRATIONS.
[2019-04-30 04:00] VITALS: BP 114/70
[2019-04-30 05:34] LABS: CALC OSMOLALITY 284 mosm/kg (275-300); CALCIUM 8.4 mg/dL (8.5-10.1); CHLORIDE - SERUM 109 mmol/L (98-107); GLUCOSE 83 mg/dL (74-106); POTASSIUM - SERUM 3.8 mmol/L (3.5-5.1); SODIUM 144 mmol/L (136-145); eGFR NON AFRICAN AMERICAN 80 mL/min (90-120)
[2019-04-30 05:35] LABS: UREA NITROGEN 9 mg/dL (7-18)
[2019-04-30 05:40] LABS: BASOPHILS 0.6 % (0-2); EOSINOPHILS 6.6 % (0-7); HEMATOCRIT 37.2 % (42.0-54.0); HEMOGLOBIN 12.1 g/dL (13.5-17.5); IMMATURE GRANULOCYTES 0.2 % (0-5); LYMPHOCYTES 28.2 % (15-50); MCH 27.3 pg (26.0-34.0); MCHC 32.5 g/dL (31.0-37.0); MEAN PLATELET VOLUME 10.8 fL (7.4-10.4); MONOCYTES 13.6 % (2-11); NEUTROPHILS 50.8 % (40-80); PLATELET COUNT 166 10x3/uL (130-400); RBC 4.43 10x6/uL (4.20-6.10)
[2019-04-30 05:45] LABS: WBC 5.3 10x3/uL (4.8-10.8)
[2019-04-30 07:18] LABS: ALBUMIN 3.1 g/dL (3.4-5.0); BILIRUBIN - DIRECT 0.11 mg/dL (0.00-0.30); BILIRUBIN - INDIRECT 0.39 mg/dL (0.00-1.00); BILIRUBIN - TOTAL 0.5 mg/dL (0.2-1.3); PROTEIN - SERUM 5.9 g/dL (6.4-8.2)
[2019-04-30 09:00] VITALS: BP 126/71
--- NOTE | 2019-04-30 12:57 | NUR ---
NUTRITION F/U PT WITH POOR INTAKE FULL LIQUIDS. STARTING PROCALAMINE AT 50 CC/HR. WILL CONTINUE TO MONITOR DIET ADVANCEMENT AND PO INTAKE. RD FOLLOWING
[2019-04-30 13:16] VITALS: BP 131/75
[2019-04-30 17:23] VITALS: BP 135/66
--- NOTE | 2019-04-30 17:28 | MORECARE ---
CASE MANAGEMENT DISCHARGE SUMMARY PATIENT: SONG MACKENZIE MARY UNIT: [id number] ADM DATE: 04/27/19 AGE: 64 : 57 SEX: M ROOM/BED: D.2226 AUTHOR: CORTEZ,DOC PHYSICIAN: REFERRING PHYSICIAN: EVAN JACOBO MD DATE OF SERVICE: 04/30/19 Discharge Plan Patient Name: SONG MACKENZIE Facility: [facility]:[place] : 1955 Planned Disposition: Home Anticipated Discharge Date: Discharge Date: Expected LOS: Initial Reviewer: [id number] Initial Review Date: 04/30/2019 Generated: 04/30/19 6:27 pm Comments DCP- Discharge Planning Updated by [id number]: Yenny Ruiz on 04/30/19 4:[address] Patient Name: SONG MACKENZIE Admission Status: ER Accout number: [id number] Admission Date: 04-27-2019 : 1955 Admission Diagnosis: Attending: EVAN JACOBO Current LOS: 3 Anticipated DC Date: Planned Disposition: Home Primary Insurance: [employer] CHOICE PPO MCR ADVANT Discharge Planning Comments: CM met with patient to complete initial dc planning assessment. CM educated patient on the CM role and verbal consent given by patient to complete assessment. Patient lives at home with his spouse. At discharge he plans to return and feels this is a safe discharge. He has a cane and walker at home, but states "I don't use them". CM discussed availability of rehab, SNF, additional DME and home health. He has had Brian in the past. Denies needs at this time. CM will continue to follow and assist with discharge planning/needs. Tooling Specialist: Yenny Ruiz DCPIA - Discharge Planning Initial Assessment Updated by [id number]: Yenny Ruiz on 04/30/19 5:23 pm * Is the patient Alert and Oriented? Yes * How many steps to enter\\exit or inside your home? 2/0 * PCP Dr. [facility] * Pharmacy [facility] [place] * Preadmission Environment Home with Family * ADLs Independent * Equipment Cane Walker * List name and contact numbers for known caregivers / representatives who currently or will assist patient after discharge: Naty veliz - [phone] or [phone] * Verbal permission to speak to the caregivers and representatives has been obtained from the patient. Yes * Community resources currently utilized None * Additional services required to return to the preadmission environment? No * Can the patient safely return to the preadmission environment? Yes * Has this patient been hospitalized within the prior 30 days at any hospital? No Patient Name: SONG MACKENZIE Page [phone] at 1728 All edits/amendments must be made on the electronic document DICTATION DATE: 04/30/191726 RELAY REPAIRER: TRICIA 04/30/191726 RPT#: [id number] DC DATE: STATUS: ADM IN [facility] [address] [place] [address] END OF REPORT
[2019-04-30 20:00] VITALS: BP 122/70
[2019-05-01] VITALS: BP 100/47
[2019-05-01 04:00] VITALS: BP 127/59
[2019-05-01 06:11] LABS: BASOPHILS 0.2 % (0-2); EOSINOPHILS 6.1 % (0-7); HEMATOCRIT 35.7 % (42.0-54.0); HEMOGLOBIN 11.7 g/dL (13.5-17.5); LYMPHOCYTES 26.9 % (15-50); MCH 27.5 pg (26.0-34.0); MCHC 32.8 g/dL (31.0-37.0); MEAN PLATELET VOLUME 10.6 fL (7.4-10.4); MONOCYTES 11.9 % (2-11); NEUTROPHILS 54.9 % (40-80); PLATELET COUNT 157 10x3/uL (130-400); RBC 4.25 10x6/uL (4.20-6.10); RDW 14.2 % (11.5-14.5); WBC 4.5 10x3/uL (4.8-10.8)
[2019-05-01 06:38] LABS: CALC OSMOLALITY 282 mosm/kg (275-300); CALCIUM 8.7 mg/dL (8.5-10.1); CARBON DIOXIDE 30.5 mmol/L (21.0-32.0); CHLORIDE - SERUM 107 mmol/L (98-107); CREATININE - SERUM 0.9 mg/dL (0.6-1.3); GLUCOSE 90 mg/dL (74-106); POTASSIUM - SERUM 4.1 mmol/L (3.5-5.1); SODIUM 143 mmol/L (136-145); UREA NITROGEN 8 mg/dL (7-18); eGFR NON AFRICAN AMERICAN > 90 mL/min (90-120)
[2019-05-01 09:33] VITALS: BP 115/51
--- NOTE | 2019-05-01 09:36 | NUR ---
RESTING IN BED, NO DISTRESS NOTED, CONT TO MONITOR PAIN AND APPETITE, IV AND PROCAL INFUSING
--- NOTE | 2019-05-01 10:34 | NUR ---
YELLING OUT WITH PAIN, STATES ITS THE WORSE YET, STATES IT FEELS LIKE A STABBING PAIN
--- NOTE | 2019-05-01 11:10 | NUR ---
EKG AND VITALS WNL, PT STATES PAIN IS DIRECTLY BEHIND HIS STERNUM, CONT TO MONITOR 132/75 75 18 97%
[2019-05-01 12:37] LABS: CKMB 0.8 U/L (0.0-3.6); CREATINE KINASE 65 UL (21-232)
[2019-05-01 12:38] LABS: TROPONIN-I 0.016 ng/mL (0.000-0.060)
[2019-05-01 13:47] VITALS: BP 133/80
[2019-05-01 17:35] VITALS: BP 134/76
[2019-05-01 18:24] LABS: CKMB 0.7 U/L (0.0-3.6); CREATINE KINASE 119 UL (21-232); TROPONIN-I 0.068 ng/mL (0.000-0.060)
--- NOTE | 2019-05-01 19:00 | NUR ---
BEDSIDE REPORT RECEIVED AND CARE OF PT ASSUMED. PT LYING IN LOW TONY'S POSITION HAVING BREATHING TX AT THIS TIME. IV TO LEFT WRIST PATENT WITH NS INFUSING AT 50 ML/HR, AND PROCALAMINE INFUSING AT 50 ML/HR. WILL MONITOR FOR NEEDS.
[2019-05-01 20:00] VITALS: BP 141/66
--- NOTE | 2019-05-01 20:09 | NUR ---
GAVE ZOFRAN FOR NAUSEA / VOMITING / DRY HEAVING. WILL MONITOR FOR EFFECTIVENESS.
--- NOTE | 2019-05-01 21:12 | NUR ---
HS MEDICATIONS GIVEN TO INCLUDE DILAUDID IV FOR C/O PAIN AND NAUSEA. WILL CONTINUE TO MONITOR FOR NEEDS.
--- NOTE | 2019-05-01 22:55 | NUR ---
COLLECTED URINE FOR ORDERED STUDIES AND DELIVERED TO LAB.
[2019-05-01 23:58] LABS: CKMB 0.9 U/L (0.0-3.6); CREATINE KINASE 79 UL (21-232); TROPONIN-I < 0.017 ng/mL (0.000-0.060)
[2019-05-02 04:00] VITALS: BP 108/74
[2019-05-02 05:40] LABS: BASOPHILS 0.2 % (0-2); EOSINOPHILS 6.3 % (0-7); HEMATOCRIT 38.1 % (42.0-54.0); HEMOGLOBIN 12.6 g/dL (13.5-17.5); IMMATURE GRANULOCYTES 0.2 % (0-5); MCH 27.6 pg (26.0-34.0); MCHC 33.1 g/dL (31.0-37.0); MCV 83.6 fL (80.0-100.0); MEAN PLATELET VOLUME 10.9 fL (7.4-10.4); MONOCYTES 10.1 % (2-11); NEUTROPHILS 55.2 % (40-80); PLATELET COUNT 157 10x3/uL (130-400); RBC 4.56 10x6/uL (4.20-6.10); RDW 13.9 % (11.5-14.5); WBC 4.9 10x3/uL (4.8-10.8)
[2019-05-02 06:22] LABS: CALC OSMOLALITY 280 mosm/kg (275-300); CARBON DIOXIDE 26.7 mmol/L (21.0-32.0); CHLORIDE - SERUM 105 mmol/L (98-107); CREATININE - SERUM 0.9 mg/dL (0.6-1.3); GLUCOSE 90 mg/dL (74-106); POTASSIUM - SERUM 3.6 mmol/L (3.5-5.1); SODIUM 142 mmol/L (136-145); UREA NITROGEN 8 mg/dL (7-18); eGFR NON AFRICAN AMERICAN > 90 mL/min (90-120)
--- NOTE | 2019-05-02 08:48 | NUR ---
RESTING IN BED, NO DISTRESS NOTED, IV INFUSING, CONT TO MONITOR INTAKE AND PAIN, PT NOT VERY GIVING WITH INFORMATION
[2019-05-02 08:53] VITALS: BP 127/52
--- NOTE | 2019-05-02 12:28 | NUR ---
CONT TO HAVE BOUTS OF CHEST PAIN, DILAUDID NOT DUE AT THIS TIME, CONT TO MONITOR, REFUSING ALL PO MEDS STATES THAT THEY CAUSE MORE PAIN
[2019-05-02 12:56] VITALS: BP 135/58
[2019-05-02 17:02] VITALS: BP 135/98
--- NOTE | 2019-05-02 19:28 | NUR ---
1800 MEDICATED TODAY FOR PAIN X2, CONT TO C/O CHEST PAIN IN THE STERNAL AREA, CONT TO MONITOR, NPO FOR TEST TOMORROW
[2019-05-02 20:00] VITALS: BP 129/68
--- NOTE | 2019-05-02 20:00 | NUR ---
ALERT NAUSEATED AND DRY HEAVING, ZOFRAN AND DILAUDID GIVEN ORDERED, SEE SHIFT ASSESSMENT, CALL LIGHT IN REACH
[2019-05-03] VITALS: BP 128/63
[2019-05-03 04:00] VITALS: BP 107/52
[2019-05-03 04:38] LABS: CALC OSMOLALITY 277 mosm/kg (275-300); CALCIUM 8.9 mg/dL (8.5-10.1); CARBON DIOXIDE 27.3 mmol/L (21.0-32.0); CHLORIDE - SERUM 103 mmol/L (98-107); CREATININE - SERUM 0.8 mg/dL (0.6-1.3); GLUCOSE 88 mg/dL (74-106); POTASSIUM - SERUM 3.9 mmol/L (3.5-5.1); SODIUM 140 mmol/L (136-145); eGFR NON AFRICAN AMERICAN > 90 mL/min (90-120)
[2019-05-03 04:40] LABS: BASOPHILS 0.6 % (0-2); EOSINOPHILS 6.2 % (0-7); HEMATOCRIT 38.7 % (42.0-54.0); HEMOGLOBIN 12.9 g/dL (13.5-17.5); IMMATURE GRANULOCYTES 0.3 % (0-5); LYMPHOCYTES 19.5 % (15-50); MCH 27.8 pg (26.0-34.0); MCHC 33.3 g/dL (31.0-37.0); MCV 83.4 fL (80.0-100.0); MEAN PLATELET VOLUME 10.5 fL (7.4-10.4); MONOCYTES 8.8 % (2-11); NEUTROPHILS 64.6 % (40-80); PLATELET COUNT 175 10x3/uL (130-400); RBC 4.64 10x6/uL (4.20-6.10); RDW 13.9 % (11.5-14.5)
[2019-05-03 04:41] LABS: UREA NITROGEN 12 mg/dL (7-18)
[2019-05-03 04:45] LABS: WBC 6.6 10x3/uL (4.8-10.8)
[2019-05-03 07:58] VITALS: BP 117/73
--- NOTE | 2019-05-03 08:00 | NUR ---
LYING IN BED,WITHOUT DISTRESS.NPO. CALL LIGHT IN REACH
--- NOTE | 2019-05-03 09:39 | NUR ---
PT WAS ORDERED GASTRIC EMPTYING SCAN, RECEIVED CALL FROM [facility] JENNIFER WHO STATED PT MUST BE NPO AND NO PAIN MEDS FOR 6 HOURS, PT WAS GIVEN DILAUDID PRN PAIN MEDS AT 0840 PT SCAN WILL BE DONE AT 1430 PER JENNIFER. WILL CONTINUE WITH PLAN OF CARE
--- NOTE | 2019-05-03 11:02 | NUR ---
PT IN BED MOANING AND GROANIONG STATES STOMACH IS HURTING REALLY BAD. PT VOMITING AND NOW DRY HEAVING WITH HICCUPS. UNABLE TO GIVE PT ANYTHING FOR PAIN DUE TO NM GASTRIC SCAN. PT IS VERY VOAL, WILL TRY AND MAKE CONFORTABLE POSSIBLE
[2019-05-03 13:07] LABS: CKMB 0.9 U/L (0.0-3.6); CREATINE KINASE 47 UL (21-232); TROPONIN-I < 0.017 ng/mL (0.000-0.060)
--- NOTE | 2019-05-03 13:58 | NUR ---
Nutrition follow-up: Diet advanced to full liquids PO intake remains poor due to nausea, discomfort Labs reviewed ProcalAmine PPN @ 50 ml/hr +BM RDN following.
--- NOTE | 2019-05-03 14:17 | NUR ---
Patient went for a nuclear medicine gastric empyting scan. After eating 2 bites, patient vomited. He could not keep oatmeal down or eat anymore. Dr. Woodward notified. Exam cancelled
--- NOTE | 2019-05-03 15:24 | NUR ---
PT LYING IN BED, SPOUSE AT BEDISDE, PT UNABLE TO DO GASTRIC EMPTYING SCAN HE IS UNABLE TO KEEP ANYTHING DOWN, PT WAS GONE FOR LESS THAN 20MINUTES AND RETURNED TO ROOM. ADMINISTERED PAIN MEDICATION REQUESTED, 'Cruz MADE AWARE OF INABILITY TO DO TEST, CONTINUE WITH PLAN OF CARE
[2019-05-03 17:33] VITALS: BP 129/69
[2019-05-03 19:15] LABS: CKMB 0.4 U/L (0.0-3.6); CREATINE KINASE 53 UL (21-232)
[2019-05-03 19:17] LABS: TROPONIN-I < 0.017 ng/mL (0.000-0.060)
--- NOTE | 2019-05-03 19:30 | NUR ---
LYING IN BED. ALERT AND ORIENTED X4. DENIES PAIN AT THIS TIME. RESP EVEN AND NONLABORED. NAUSEATED. ZOFRAN DRIP @ 4.7 MLHR. NS @ 50 MLHR. PROCAL @ 50 MLHR. ABD DISTENDED AND FIRM. SCDS IN USE BILAT. AMBULATORY. INFORMED OF NPO AFTER MIDNIGHT AND HE VERBALIZED UNDERSTANDING. STATES HE HASNT EATEN OR DRANK ANYTHING IN DAYS AND THAT HE HAS DIFF SWALLOWING. STATE HE VOMITS AFTER HE SWALLOWS ANYTHING. SR ELEVATED X2. CL IN REACH.
[2019-05-03 21:11] VITALS: BP 129/60
[2019-05-04 01:04] LABS: CKMB 0.9 U/L (0.0-3.6); CREATINE KINASE 59 UL (21-232); TROPONIN-I < 0.017 ng/mL (0.000-0.060)
[2019-05-04 01:24] VITALS: BP 103/69
--- NOTE | 2019-05-04 01:24 | NUR ---
HAS RESTED WELL SO FAR THIS SHIFT. VOMITING NOTED AFTER MED PASS. HASNT VOMITED SINCE. CL IN REACH.
[2019-05-04 04:56] VITALS: BP 115/70
[2019-05-04 05:30] LABS: ALBUMIN 3.1 g/dL (3.4-5.0); ALKALINE PHOSPHATASE 110 U/L (46-116); ALT (SGPT) 71 U/L (10-68); BILIRUBIN - DIRECT 0.13 mg/dL (0.00-0.30); BILIRUBIN - INDIRECT 0.47 mg/dL (0.00-1.00); CALC OSMOLALITY 278 mosm/kg (275-300); CALCIUM 8.6 mg/dL (8.5-10.1); CARBON DIOXIDE 28.5 mmol/L (21.0-32.0); CHLORIDE - SERUM 104 mmol/L (98-107); CREATININE - SERUM 0.9 mg/dL (0.6-1.3); GLUCOSE 87 mg/dL (74-106); MAGNESIUM - SERUM 1.8 mg/dL (1.8-2.4); POTASSIUM - SERUM 3.6 mmol/L (3.5-5.1); PROTEIN - SERUM 6.5 g/dL (6.4-8.2); SODIUM 140 mmol/L (136-145); UREA NITROGEN 15 mg/dL (7-18); eGFR NON AFRICAN AMERICAN > 90 mL/min (90-120)
[2019-05-04 05:41] LABS: BASOPHILS 0.7 % (0-2); EOSINOPHILS 6.6 % (0-7); HEMATOCRIT 37.4 % (42.0-54.0); HEMOGLOBIN 12.6 g/dL (13.5-17.5); IMMATURE GRANULOCYTES 0.4 % (0-5); LYMPHOCYTES 27.2 % (15-50); MCH 27.7 pg (26.0-34.0); MCHC 33.7 g/dL (31.0-37.0); MCV 82.2 fL (80.0-100.0); MEAN PLATELET VOLUME 10.7 fL (7.4-10.4); MONOCYTES 11.2 % (2-11); NEUTROPHILS 53.9 % (40-80); PLATELET COUNT 187 10x3/uL (130-400); RBC 4.55 10x6/uL (4.20-6.10); RDW 13.8 % (11.5-14.5); WBC 5.5 10x3/uL (4.8-10.8)
[2019-05-04 09:16] VITALS: BP 99/58
--- NOTE | 2019-05-04 09:30 | NUR ---
PT LYING IN BED C/O ABD PAIN AT A 10, ADMINISTERED PRN PAIN MEDICATION, PRE PM NURSE PT SLEPT ALL NIGHT AND DID NOT ASK FOR ANY MEDS. CONTINUE WITH PLAN OF CARE, PT SCHEDULED FOR EGD TODAY
--- NOTE | 2019-05-04 12:21 | NUR ---
PT IS WITHOUT NEEDS.CALL LIGHT IN REACH
[2019-05-04 13:29] VITALS: BP 125/75
--- NOTE | 2019-05-04 13:51 | NUR ---
NO TX GIVEN PT IN SURGERY
--- NOTE | 2019-05-04 16:05 | NUR ---
1555 PT WITH FOOD BOLUS, TIVA ABORTED, ET PROCEDURE MORE RIGHT AND PROCEEDED TO PROTECT AIRWAY
--- NOTE | 2019-05-04 17:12 | NUR ---
1711 BALLOON DIL TO 11.
--- NOTE | 2019-05-04 17:19 | NUR ---
1719 BALLOON DIL TO 12 FOOD PIECES CONTINUE TO BE REMOVED IN PIECE MEALS
--- NOTE | 2019-05-04 19:22 | NUR ---
TREATMENT NOT GIVEN, PATIENT REFUSED JUST GOT BACK FROM SURGERY AND IS SCREAMING IN PAIN
[2019-05-04 21:18] VITALS: BP 143/68
[2019-05-05 01:14] VITALS: BP 145/70
--- NOTE | 2019-05-05 02:57 | NUR ---
PT RESTING IN BED. EYES CLOSED. NO SIGNS OF DISTRESS. BREATHING EVEN AND UNLABORED. IV SITE LT WRIST. DRESSING CLEAN DRY AND INTACT. NO SIGNS OF INFECTION OR INFULTRATION. SKIN CLEAN DRY AND INTACT. BOWEL SOUNDS ACTIVE. ABD DISTENDED AND TENDER TO PALPATION. WILL CONTINUE PLAN OF CARE. CALL LIGHT IN REACH. BED LOWERED AND LOCKED. BED RAILS UPX2.
--- NOTE | 2019-05-05 04:02 | NUR ---
I have reviewed this patient and I concur with the Shift Assessment completed by the Licensed Practical Nurse today this shift.
[2019-05-05 06:06] VITALS: BP 135/74
[2019-05-05 06:10] LABS: BASOPHILS 0.4 % (0-2); EOSINOPHILS 4.7 % (0-7); HEMATOCRIT 37.8 % (42.0-54.0); HEMOGLOBIN 12.9 g/dL (13.5-17.5); IMMATURE GRANULOCYTES 0.3 % (0-5); LYMPHOCYTES 19.1 % (15-50); MCH 27.8 pg (26.0-34.0); MCHC 34.1 g/dL (31.0-37.0); MCV 81.5 fL (80.0-100.0); MEAN PLATELET VOLUME 10.6 fL (7.4-10.4); NEUTROPHILS 69.5 % (40-80); PLATELET COUNT 163 10x3/uL (130-400); RBC 4.64 10x6/uL (4.20-6.10); RDW 13.6 % (11.5-14.5); WBC 7.7 10x3/uL (4.8-10.8)
[2019-05-05 06:41] LABS: ALBUMIN 3.1 g/dL (3.4-5.0); ALKALINE PHOSPHATASE 163 U/L (46-116); ALT (SGPT) 68 U/L (10-68); BILIRUBIN - TOTAL 0.38 mg/dL (0.2-1.3); CALC OSMOLALITY 279 mosm/kg (275-300); CALCIUM 8.7 mg/dL (8.5-10.1); CHLORIDE - SERUM 105 mmol/L (98-107); CREATININE - SERUM 0.9 mg/dL (0.6-1.3); GLUCOSE 92 mg/dL (74-106); MAGNESIUM - SERUM 1.9 mg/dL (1.8-2.4); POTASSIUM - SERUM 3.5 mmol/L (3.5-5.1); PROTEIN - SERUM 6.3 g/dL (6.4-8.2); SODIUM 139 mmol/L (136-145); UREA NITROGEN 17 mg/dL (7-18); eGFR NON AFRICAN AMERICAN > 90 mL/min (90-120)
--- NOTE | 2019-05-05 07:10 | NUR ---
PT RESTING IN BED. NO SIGNS OF DISTRESS. IV LEFT WRIST PATENT NO REDNESS OR TENDERNESS. COMPLAINS OF PAIN. MEDICATION GIVEN. DENIES ANY FURTHER NEED AT THIS TIME. CALL LIGHT IN REACH. BED LOW POSITION. NO FAMILY AT BEDSIDE AT THIS TIME.
[2019-05-05 08:55] VITALS: BP 123/64
[2019-05-05 12:55] VITALS: BP 115/73
--- NOTE | 2019-05-05 14:06 | NUR ---
I have reviewed this patient and I concur with the Shift Assessment completed by the Licensed Practical Nurse today this shift.
[2019-05-05 17:33] VITALS: BP 131/70
[2019-05-05 19:30] VITALS: BP 140/81
[2019-05-06 00:30] VITALS: BP 141/80
--- NOTE | 2019-05-06 04:06 | NUR ---
PT RESTING IN BED. EYES CLOSED. NO SIGNS OF DISTRESS. BREATHING EVEN AND UNLABORED. IV SITE LT WRIST DRESSING CLEAN DRY AND INTACT. NO SIGNS OF INECTION. OR INFULTRATION. BOWEL SOUNDS ACTIVE. LUNG SOUNDS CLEAR. NO SWELLING PRESENT. WILL CONTINUE PLAN OF CARE. CALL LIGHT IN REACH. BED LOWERED AND LOCKED. BED RAILS UPX2.
--- NOTE | 2019-05-06 04:07 | NUR ---
I have reviewed this patient and I concur with the Shift Assessment completed by the Licensed Practical Nurse today this shift.
[2019-05-06 05:26] VITALS: BP 114/76
[2019-05-06 06:32] LABS: BASOPHILS 0.4 % (0-2); EOSINOPHILS 6.1 % (0-7); HEMATOCRIT 35.9 % (42.0-54.0); HEMOGLOBIN 12.2 g/dL (13.5-17.5); IMMATURE GRANULOCYTES 0.2 % (0-5); LYMPHOCYTES 30.8 % (15-50); MCV 82.3 fL (80.0-100.0); MEAN PLATELET VOLUME 10.8 fL (7.4-10.4); MONOCYTES 9.2 % (2-11); NEUTROPHILS 53.3 % (40-80); PLATELET COUNT 173 10x3/uL (130-400); RBC 4.36 10x6/uL (4.20-6.10)
[2019-05-06 06:40] LABS: WBC 4.9 10x3/uL (4.8-10.8)
[2019-05-06 06:58] LABS: ALKALINE PHOSPHATASE 227 U/L (46-116); ALT (SGPT) 82 U/L (10-68); BILIRUBIN - TOTAL 0.44 mg/dL (0.2-1.3); CALC OSMOLALITY 279 mosm/kg (275-300); CALCIUM 8.8 mg/dL (8.5-10.1); CARBON DIOXIDE 28.6 mmol/L (21.0-32.0); CHLORIDE - SERUM 107 mmol/L (98-107); CREATININE - SERUM 0.8 mg/dL (0.6-1.3); GLUCOSE 90 mg/dL (74-106); POTASSIUM - SERUM 3.6 mmol/L (3.5-5.1); PROTEIN - SERUM 6.1 g/dL (6.4-8.2); SODIUM 141 mmol/L (136-145); UREA NITROGEN 10 mg/dL (7-18); eGFR NON AFRICAN AMERICAN > 90 mL/min (90-120)
--- NOTE | 2019-05-06 07:35 | NUR ---
PATIENT LAYING ON BACK IN BED. STATES HE IS "OK IF I DON'T MOVE" CL IN REACH. REQUESTS A SPRITE. SHAYY
[2019-05-06 08:45] VITALS: BP 108/58
[2019-05-06 11:10] LABS: PORPH UR - COPROPOR I 12 ug/L (0-15); PORPH UR - COPROPORPH III 4 ug/L (0-49); PORPH UR - HEPTACARBOXYL 1 ug/L (0-2); PORPH UR - HEXACARBOXYL <1 ug/L (0-1); PORPH UR - PENTACARBOXYL <1 ug/L (0-2); PORPH UR - UROPORPHYRINS 7 ug/L (0-20)
[2019-05-06 12:26] VITALS: BP 116/62
[2019-05-06 17:02] VITALS: BP 125/71
[2019-05-06 19:30] VITALS: BP 130/78
[2019-05-07 00:30] VITALS: BP 129/80
[2019-05-07 04:30] VITALS: BP 138/76
--- NOTE | 2019-05-07 05:43 | NUR ---
PT RESTING IN BED. EYES CLOSED. NO SIGNS OF DISTRESS. BREATHING EVEN AND UNLABORED. IV SITE LT WRIST DRESSING CLEAN DRY AND INTACT. NO SIGNS OF INFECTION OR INFULTRATION. SKIN CLEAN DRY AND INTACT. LUNG SOUNDS CLEAR. BOWEL SOUNDS ACTIVE. WILL CONTINUE PLAN OF CARE. CALL LIGHT IN REACH. BED LOWERED AND LOCKED. BED RAILS UPX1.
--- NOTE | 2019-05-07 06:00 | NUR ---
I have reviewed this patient and I concur with the Shift Assessment completed by the Licensed Practical Nurse today this shift.
[2019-05-07 06:34] LABS: BASOPHILS 0.8 % (0-2); EOSINOPHILS 7.4 % (0-7); HEMATOCRIT 38.1 % (42.0-54.0); HEMOGLOBIN 12.8 g/dL (13.5-17.5); MCH 27.9 pg (26.0-34.0); MCHC 33.6 g/dL (31.0-37.0); MCV 83.2 fL (80.0-100.0); MEAN PLATELET VOLUME 11.9 fL (7.4-10.4); MONOCYTES 7.4 % (2-11); NEUTROPHILS 48.4 % (40-80); RBC 4.58 10x6/uL (4.20-6.10); RDW 14.2 % (11.5-14.5); WBC 3.9 10x3/uL (4.8-10.8)
[2019-05-07 06:41] LABS: PLATELET COUNT 125 10x3/uL (130-400)
[2019-05-07 07:08] LABS: ALBUMIN 3.4 g/dL (3.4-5.0); ALKALINE PHOSPHATASE 193 U/L (46-116); ALT (SGPT) 70 U/L (10-68); BILIRUBIN - TOTAL 0.54 mg/dL (0.2-1.3); CARBON DIOXIDE 27.5 mmol/L (21.0-32.0); CHLORIDE - SERUM 106 mmol/L (98-107); CREATININE - SERUM 0.8 mg/dL (0.6-1.3); GLUCOSE 91 mg/dL (74-106); PROTEIN - SERUM 6.5 g/dL (6.4-8.2); SODIUM 142 mmol/L (136-145); eGFR NON AFRICAN AMERICAN > 90 mL/min (90-120)
[2019-05-07 07:10] LABS: CALC OSMOLALITY 280 mosm/kg (275-300); UREA NITROGEN 7 mg/dL (7-18)
[2019-05-07 08:53] VITALS: BP 110/61
[2019-05-07 13:01] VITALS: BP 112/53
--- NOTE | 2019-05-07 16:42 | NUR ---
The patient is awake and alert, he says he came to the hospital because he thought mhe had the flu, he says he just does not feel well and he has a little bit of diarrhea. He requests sprite and ice. Will provide him a soft drink. The patient said he hurt all night, he was not able to say where he hurt. He said "I don't know, just hurting."
[2019-05-07 17:02] VITALS: BP 113/52
--- NOTE | 2019-05-07 17:51 | NUR ---
REC'D CALLED FROM PHARMACY INQUIRING ABOUT PT TAKING ELIQUIS 10 MG STARTING FROM 05/07/19 AND ENDING 05/14/19 AND THEN START ON ELIQUIS 5 MG STARTED ON 05/21/19. THEY WAS WANTING TO KNOW ABOUT HE GAP IN BETWEEN. ELECTRIC RAZOR ASSEMBLER MD WAS CALLED SPOKE WITH KYRA HAM AND WAS INFORMED THAT IT WILL BE CORRECTED ON TOMORROW.
[2019-05-07 20:00] VITALS: BP 134/72
[2019-05-08] VITALS: BP 123/70
[2019-05-08 04:00] VITALS: BP 170/55
[2019-05-08 05:34] LABS: BASOPHILS 0.9 % (0-2); EOSINOPHILS 9.3 % (0-7); HEMATOCRIT 37.3 % (42.0-54.0); HEMOGLOBIN 12.4 g/dL (13.5-17.5); IMMATURE GRANULOCYTES 0.2 % (0-5); LYMPHOCYTES 30.7 % (15-50); MCH 27.7 pg (26.0-34.0); MCHC 33.2 g/dL (31.0-37.0); MCV 83.4 fL (80.0-100.0); MEAN PLATELET VOLUME 10.8 fL (7.4-10.4); MONOCYTES 10.4 % (2-11); NEUTROPHILS 48.5 % (40-80); RBC 4.47 10x6/uL (4.20-6.10); RDW 14.1 % (11.5-14.5); WBC 4.5 10x3/uL (4.8-10.8)
[2019-05-08 05:51] LABS: PLATELET COUNT 189 10x3/uL (130-400)
[2019-05-08 06:15] LABS: ALBUMIN 3.2 g/dL (3.4-5.0); ALKALINE PHOSPHATASE 150 U/L (30-120); BILIRUBIN - TOTAL 0.45 mg/dL (0.2-1.3); CALC OSMOLALITY 282 mosm/kg (275-300); CALCIUM 9.1 mg/dL (8.5-10.1); CARBON DIOXIDE 30.9 mmol/L (21.0-32.0); CHLORIDE - SERUM 104 mmol/L (98-107); CREATININE - SERUM 0.8 mg/dL (0.6-1.3); GLUCOSE 96 mg/dL (74-106); MAGNESIUM - SERUM 1.8 mg/dL (1.8-2.4); POTASSIUM - SERUM 3.7 mmol/L (3.5-5.1); PROTEIN - SERUM 6.4 g/dL (6.4-8.2); SODIUM 143 mmol/L (136-145); UREA NITROGEN 8 mg/dL (7-18); eGFR NON AFRICAN AMERICAN > 90 mL/min (90-120)
[2019-05-08 06:16] LABS: ALT (SGPT) 50 U/L (10-68)
--- NOTE | 2019-05-08 08:22 | NUR ---
RESTING IN BED, NO DISTRESS NOTED, PROCAL AND IV CONT INFUSING, PT STATES THAT HE IS UNAWARE OF EGD RESULTS, CONT TO MONITOR
[2019-05-08 10:05] VITALS: BP 111/61
[2019-05-08 12:39] VITALS: BP 123/63
[2019-05-08 16:33] VITALS: BP 111/65
--- NOTE | 2019-05-08 18:39 | NUR ---
MEDICATED X1 TODAY FOR PAIN, NO NAUSEA OR EMESIS, CONT TO MONITOR
--- NOTE | 2019-05-08 19:14 | NUR ---
PATIENT RESTING IN BED AND DENIES NEEDS AT THIS TIME. NO S/S OF DISTRESS. BED IN LOWEST POSITION AND CALL LIGHT WITHIN REACH. ENCOURAGED THE PATIENT TO CALL IF SHE HAS NEEDS. WILL CONTINUE TO MONITOR.
[2019-05-08 19:30] VITALS: BP 125/72
[2019-05-09 00:30] VITALS: BP 120/71
[2019-05-09 04:30] VITALS: BP 110/67
[2019-05-09 05:28] LABS: EOSINOPHILS 8.2 % (0-7); HEMATOCRIT 36.1 % (42.0-54.0); IMMATURE GRANULOCYTES 0.2 % (0-5); LYMPHOCYTES 36.6 % (15-50); MCH 27.6 pg (26.0-34.0); MCHC 33.2 g/dL (31.0-37.0); MEAN PLATELET VOLUME 10.9 fL (7.4-10.4); MONOCYTES 8.4 % (2-11); NEUTROPHILS 45.6 % (40-80); PLATELET COUNT 207 10x3/uL (130-400); RBC 4.35 10x6/uL (4.20-6.10); WBC 5.1 10x3/uL (4.8-10.8)
[2019-05-09 05:43] LABS: ALBUMIN 3.1 g/dL (3.4-5.0); ALKALINE PHOSPHATASE 132 U/L (30-120); ALT (SGPT) 39 U/L (10-68); BILIRUBIN - TOTAL 0.48 mg/dL (0.2-1.3); CALC OSMOLALITY 281 mosm/kg (275-300); CALCIUM 9.1 mg/dL (8.5-10.1); CARBON DIOXIDE 30.6 mmol/L (21.0-32.0); CHLORIDE - SERUM 105 mmol/L (98-107); CREATININE - SERUM 0.8 mg/dL (0.6-1.3); GLUCOSE 94 mg/dL (74-106); POTASSIUM - SERUM 3.8 mmol/L (3.5-5.1); PROTEIN - SERUM 6.1 g/dL (6.4-8.2); SODIUM 142 mmol/L (136-145); UREA NITROGEN 9 mg/dL (7-18); eGFR NON AFRICAN AMERICAN > 90 mL/min (90-120)
[2019-05-09 08:16] VITALS: BP 110/51
--- NOTE | 2019-05-09 08:46 | NUR ---
RESTING IN BED, NO DISTRESS NOTED, IV INFUSING, NO C/O NAUSEA
[2019-05-09 13:40] VITALS: BP 104/54
--- NOTE | 2019-05-09 16:46 | NUR ---
UPDATED ON DR GERONIMO NOTES, VOICED CONCERN OF PT NOT TAKING A SHOWER THE LAST 12 DAYS
[2019-05-09 17:04] VITALS: BP 104/66
--- NOTE | 2019-05-09 19:34 | NUR ---
PATIENT RESTING IN BED WITH NO S/S OF DISTRESS. PATIENT REQUESTED BACLOFEN WITH NIGHT MEDS. PATIENT DENIES OTHER NEEDS AT THIS TIME. BED IN LOWEST POSITION AND CALL LIGHT WITHIN REACH. ENCOURAGED THE PATIENT TO CALL IF HE HAS NEEDS. WILL CONTINUE TO MONITOR.
[2019-05-09 20:00] VITALS: BP 104/63
[2019-05-10 00:30] VITALS: BP 110/62
[2019-05-10 05:06] VITALS: BP 100/59
[2019-05-10 06:04] LABS: BASOPHILS 0.9 % (0-2); EOSINOPHILS 8.7 % (0-7); HEMATOCRIT 38.2 % (42.0-54.0); HEMOGLOBIN 12.6 g/dL (13.5-17.5); IMMATURE GRANULOCYTES 0.2 % (0-5); LYMPHOCYTES 28.3 % (15-50); MCH 27.4 pg (26.0-34.0); MEAN PLATELET VOLUME 10.7 fL (7.4-10.4); MONOCYTES 8.4 % (2-11); NEUTROPHILS 53.5 % (40-80); PLATELET COUNT 216 10x3/uL (130-400); RDW 14.2 % (11.5-14.5); WBC 5.7 10x3/uL (4.8-10.8)
[2019-05-10 06:23] LABS: ALBUMIN 3.2 g/dL (3.4-5.0); ALKALINE PHOSPHATASE 120 U/L (30-120); ALT (SGPT) 35 U/L (10-68); BILIRUBIN - TOTAL 0.41 mg/dL (0.2-1.3); CALCIUM 8.6 mg/dL (8.5-10.1); CARBON DIOXIDE 27.5 mmol/L (21.0-32.0); CHLORIDE - SERUM 106 mmol/L (98-107); CREATININE - SERUM 0.9 mg/dL (0.6-1.3); GLUCOSE 104 mg/dL (74-106); POTASSIUM - SERUM 4.2 mmol/L (3.5-5.1); PROTEIN - SERUM 5.9 g/dL (6.4-8.2); SODIUM 142 mmol/L (136-145); eGFR NON AFRICAN AMERICAN > 90 mL/min (90-120)
[2019-05-10 06:27] LABS: CALC OSMOLALITY 282 mosm/kg (275-300); UREA NITROGEN 13 mg/dL (7-18)
--- NOTE | 2019-05-10 08:00 | NUR ---
ASSESSMENT PER FLOW SHEET. PT IS WITHOUT DISTRESS.MONITOR FOR NEEDS
[2019-05-10 08:24] VITALS: BP 105/49
[2019-05-10 12:42] VITALS: BP 104/55
[2019-05-10] MEDS ORDERED: ELIQUIS5 MG PO ×2 (15:00→15:01)
--- NOTE | 2019-05-10 16:01 | NUR ---
URINE HAS BEEN SENT TO LAB ORDERED.PT IS WITHOUT DISTRESS.
--- NOTE | 2019-05-10 16:34 | MORECARE ---
CASE MANAGEMENT DISCHARGE SUMMARY PATIENT: SONG MACKENZIE MARY UNIT: [id number] ADM DATE: 04/27/19 AGE: 64 : 57 SEX: M ROOM/BED: D.2226 AUTHOR: CORTEZ,DOC PHYSICIAN: REFERRING PHYSICIAN: EVNA JACOBO MD DATE OF SERVICE: 05/10/19 Discharge Plan Patient Name: SONG MACKENZIE Facility: [facility]:[place] : 1955 Planned Disposition: Home Anticipated Discharge Date: Discharge Date: Expected LOS: Initial Reviewer: [email or web address] Initial Review Date: 04/30/2019 Generated: 05/10/19 5:33 pm Comments DCP- Discharge Planning Updated by [email or web address]: Yenny Ruiz on 05/10/19 3:[address] Patient Name: SONG MACKENZIE Encounter No: [id number] : 1955 Primary Insurance: [employer] CHOICE PPO MCR ADVANT Anticipated DC Date: Planned Disposition: Home External Planned Provider: : DCP follow-up note: Patient and family in agreement with discharge plan. No changes to plan. Declines need for home health. States is on her way to pick him up. CM will continue to follow and assist with discharge planning/needs. Yenny Ruiz DCP- Discharge Planning Updated by [id number]: Yenny Ruiz on 04/30/19 4:[address] Patient Name: SONG MACKENZIE Admission Status: ER Accout number: [id number] Admission Date: 04-27-2019 : 1955 Admission Diagnosis: Attending: EVAN JACOBO Current LOS: 3 Anticipated DC Date: Planned Disposition: Home Primary Insurance: HUMANA CHOICE PPO MCR ADVANT Discharge Planning Comments: CM met with patient to complete initial dc planning assessment. CM educated patient on the CM role and verbal consent given by patient to complete assessment. Patient lives at home with his spouse. At discharge he plans to return and feels this is a safe discharge. He has a cane and walker at home, but states "I don't use them". CM discussed availability of rehab, SNF, additional DME and home health. He has had [facility] in the past. Denies needs at this time. CM will continue to follow and assist with discharge planning/needs. Product Expert: Yenny Joseph DCPIA - Discharge Planning Initial Assessment Updated by [id number]: Yenny Ruiz on 04/30/19 5:23 pm * Is the patient Alert and Oriented? Yes * How many steps to enter\\exit or inside your home? 2/0 * PCP Dr. West * Pharmacy [facility] in [place] * Preadmission Environment Home with Family * ADLs Independent * Equipment Cane Walker * List name and contact numbers for known caregivers / representatives who currently or will assist patient after discharge: Naty veliz - [phone] or [phone] * Verbal permission to speak to the caregivers and representatives has been obtained from the patient. Yes * Community resources currently utilized None * Additional services required to return to the preadmission environment? No * Can the patient safely return to the preadmission environment? Yes * Has this patient been hospitalized within the prior 30 days at any hospital? No Coverage Notice Reviewer: [id number] - Yenny Ruiz Notice Issued Date-Time: 05/10/2019 16:24 Notice Type: IM Discharge Notice Notice Delivered To: Patient Relationship to Patient: Self Multimedia Educational Specialist Name: Delivery Method: HAND - Hand Delivered Ce Days: Prior Verbal Notification: Recipient Understood Notice: Yes Recipient Signature: Yes Med Rec Note Co-signed by Attending: Coverage Notice Comment: IMM EXPLAINED, SIGNED, GIVEN, COPY PLACED IN MR Last DP export: 04/30/19 4:28 p Patient Name: SONG MACKENZIE Page [phone] at 1634 All edits/amendments must be made on the electronic document DICTATION DATE: 05/10/19 1633 ICT DEVELOPMENT MANAGER: TRICIA 05/10/19 1633 RPT#: [id number] DC DATE: STATUS: ADM IN [facility] [address] [place] [address] END OF REPORT
[2019-05-10 16:47] VITALS: BP 126/79
--- NOTE | 2019-05-10 17:11 | NUR ---
DISCHARGE INSTRUCTIONS BY NIKOS JIANG LPN. IV DCD WITH CATH TIP INTACT.LEFT UNIT VIA WHEELCHAIR FOR TRANSPORT HOME
--- NOTE | 2019-05-12 16:54 | MORECARE ---
CASE MANAGEMENT DISCHARGE SUMMARY PATIENT: SONG MACKENZIE MARY UNIT: [id number] ADM DATE: 04/27/19 AGE: 64 : 57 SEX: M ROOM/BED: D.2226 AUTHOR: TRISTEN TORO PHYSICIAN: REFERRING PHYSICIAN: EVAN JACOBO MD DATE OF SERVICE: 05/12/19 Discharge Plan Patient Name: SONG MACKENZIE Facility: [facility]:[place] : 1955 Planned Disposition: Home Anticipated Discharge Date: Discharge Date: 05/10/2019 Expected LOS: 0 Initial Reviewer: [email or web address] Initial Review Date: 04/30/2019 Generated: 05/12/19 5:54 pm Comments DCP- Discharge Planning Updated by [email or web address]: Yenny Colónjo on 05/10/19 3:[address] Patient Name: SONG MACKENZIE Encounter No: [id number] : 1955 Primary Insurance: HU[employer]NA CHOICE PPO MCR ADVANT Anticipated DC Date: Planned Disposition: Home External Planned Provider: : DCP follow-up note: Patient and family in agreement with discharge plan. No changes to plan. Declines need for home health. States is on her way to pick him up. CM will continue to follow and assist with discharge planning/needs. Yenny Ruiz DCP- Discharge Planning Updated by [id number]: Yenny Ruiz on 04/30/19 4:[address] Patient Name: SONG MACKENZIE Admission Status: ER Accout number: [id number] Admission Date: 04-27-2019 : 1955 Admission Diagnosis: Attending: EVAN JACOBO Current LOS: 3 Anticipated DC Date: Planned Disposition: Home Primary Insurance: HU[employer]NA CHOICE PPO MCR ADVANT Discharge Planning Comments: CM met with patient to complete initial dc planning assessment. CM educated patient on the CM role and verbal consent given by patient to complete assessment. Patient lives at home with his spouse. At discharge he plans to return and feels this is a safe discharge. He has a cane and walker at home, but states "I don't use them". CM discussed availability of rehab, SNF, additional DME and home health. He has had [place] in the past. Denies needs at this time. CM will continue to follow and assist with discharge planning/needs. Pickling Machine Operator: Yenny Joseph DCPIA - Discharge Planning Initial Assessment Updated by [id number]: Yenny Ruiz on 04/30/19 5:23 pm * Is the patient Alert and Oriented? Yes * How many steps to enter\\exit or inside your home? 2/0 * PCP Dr. West * Pharmacy [facility] in [place] * Preadmission Environment Home with Family * ADLs Independent * Equipment Cane Walker * List name and contact numbers for known caregivers / representatives who currently or will assist patient after discharge: Naty veliz - [phone] or [phone] * Verbal permission to speak to the caregivers and representatives has been obtained from the patient. Yes * Community resources currently utilized None * Additional services required to return to the preadmission environment? No * Can the patient safely return to the preadmission environment? Yes * Has this patient been hospitalized within the prior 30 days at any hospital? No Coverage Notice Reviewer: [id number] - Yenny Ruiz Notice Issued Date-Time: 05/10/2019 16:24 Notice Type: IM Discharge Notice Notice Delivered To: Patient Relationship to Patient: Self Retail Manager In Training Name: Delivery Method: HAND - Hand Delivered Ce Days: Prior Verbal Notification: Recipient Understood Notice: Yes Recipient Signature: Yes Med Rec Note Co-signed by Attending: Coverage Notice Comment: IMM EXPLAINED, SIGNED, GIVEN, COPY PLACED IN MR Last DP export: 05/10/19 3:34 p Patient Name: SONG MACKENZIE Page [phone] at 1654 All edits/amendments must be made on the electronic document DICTATION DATE: 05/12/191653 FRUIT THINNER: TRICIA 05/12/191653 RPT#: [id number] DC DATE:05/10/19 STATUS: DIS IN [facility] [address] [place] [address] END OF REPORT
[2019-05-13 11:10] LABS: PORPH UR - COPROPOR I 4 ug/L (0-15); PORPH UR - COPROPORPH III 23 ug/L (0-49); PORPH UR - HEPTACARBOXYL <1 ug/L (0-2); PORPH UR - HEXACARBOXYL <1 ug/L (0-1); PORPH UR - PENTACARBOXYL <1 ug/L (0-2); PORPH UR - UROPORPHYRINS 2 ug/L (0-20)
== END 2019-05-10 17:11 | disposition home or self-care (01) | DRG 441 ==
LOC: D.ER 11:41 → D.MS 15:56
PROVIDERS: Family Medicine; Internal Medicine Gastroenterology; ADMIT Internal Medicine Nephrology; ATTEND Internal Medicine Nephrology
PROC: 0D758ZZ Dilation of Esophagus, Via Natural or Artificial Opening Endoscopic (ICD-10-PCS; 2019-05-04)
PROC: 0DC98ZZ Extirpation of Matter from Duodenum, Via Natural or Artificial Opening Endoscopic (ICD-10-PCS; principal; 2019-05-04 13:53)
PROC: 0DB78ZX Excision of Stomach, Pylorus, Via Natural or Artificial Opening Endoscopic, Diagnostic (ICD-10-PCS; 2019-05-04 13:53)
DX: I81 Portal vein thrombosis (principal); K55.069 Acute infarction of intestine, part and extent unspecified; I31.3 Pericardial effusion (noninflammatory); I25.10 Atherosclerotic heart disease of native coronary artery without angina pectoris; K58.9 Irritable bowel syndrome, unspecified; G62.9 Polyneuropathy, unspecified; K21.9 Gastro-esophageal reflux disease without esophagitis; F41.8 Other specified anxiety disorders; K20.9 Esophagitis, unspecified; K29.00 Acute gastritis without bleeding; K22.2 Esophageal obstruction; T18.8XXA Foreign body in other parts of alimentary tract, initial encounter

== ENCOUNTER → 2019-06-04 13:33 | Outpatient (CLI) | payer MEDICARE, OTHER ==
[2019-05-31 08:03] VITALS: BMI 28.1
[~2019-06-04 13:33] MED LIST changes: +ELIQUIS5 MG PO; +LOMOTIL 2.5-0.1 EAC1 PO
== END | disposition home or self-care (01) ==
LOC: D.NM 13:33
PROVIDERS: ATTEND Surgery
DX: R11.2 Nausea with vomiting, unspecified (principal)

== ENCOUNTER 2019-06-09 06:35 | Day surgery (SDC) | payer MEDICARE, OTHER ==
[~2019-06-09] VITALS: Ht 175.3 cm; Wt 85.9 kg
[2019-06-09 06:52] LABS: HEMATOCRIT 41.2 % (42.0-54.0); HEMOGLOBIN 13.8 g/dL (13.5-17.5); MCH 27.8 pg (26.0-34.0); MCHC 33.5 g/dL (31.0-37.0); MCV 83.1 fL (80.0-100.0); MEAN PLATELET VOLUME 10.4 fL (7.4-10.4); RBC 4.96 10x6/uL (4.20-6.10); WBC 6.1 10x3/uL (4.8-10.8)
[2019-06-09 07:22] VITALS: Ht 175.3 cm; Wt 85.9 kg
--- NOTE | 2019-06-09 11:26 | NUR ---
1046 ALL DC CRITERIA MET. IV REMOVED WITH CATHALON INTACT. ALL DC INSTRUCTIONS GIVEN. VOICES UNDERSTANDING. TAKEN OUT VIA W/C TO CAR WITH FAMILY. ADVISED TO CALL OR COME BACK IF ANY PROBLEMS.
== END 2019-06-09 10:49 | disposition home or self-care (01) ==
LOC: D.OPS 06:35
PROVIDERS: Anesthesiology; ATTEND Surgery
DX: G43.A1 Cyclical vomiting, in migraine, intractable (principal); K31.84 Gastroparesis; R13.10 Dysphagia, unspecified; I10 Essential (primary) hypertension; K21.9 Gastro-esophageal reflux disease without esophagitis; R10.9 Unspecified abdominal pain; Z90.49 Acquired absence of other specified parts of digestive tract; I81 Portal vein thrombosis

== ENCOUNTER 2019-06-13 10:50 | Emergency (ER) | payer MEDICARE, OTHER ==
[~2019-06-13] VITALS: Ht 175.3 cm; Wt 81.8 kg
[2019-06-13 11:01] VITALS: Ht 175.3 cm; Wt 81.8 kg
[2019-06-13 11:22] LABS: EOSINOPHILS 6.7 % (0-7); HEMATOCRIT 43.5 % (42.0-54.0); HEMOGLOBIN 14.7 g/dL (13.5-17.5); IMMATURE GRANULOCYTES 0.2 % (0-5); LYMPHOCYTES 22.1 % (15-50); MCH 27.9 pg (26.0-34.0); MCHC 33.8 g/dL (31.0-37.0); MCV 82.5 fL (80.0-100.0); MEAN PLATELET VOLUME 10.6 fL (7.4-10.4); MONOCYTES 17.4 % (2-11); NEUTROPHILS 52.6 % (40-80); PLATELET COUNT 161 10x3/uL (130-400); RBC 5.27 10x6/uL (4.20-6.10); WBC 4.9 10x3/uL (4.8-10.8)
[2019-06-13 11:33] LABS: INR 1.09 (0.85-1.17)
[2019-06-13 12:08] LABS: CALC OSMOLALITY 275 mosm/kg (275-300); CALCIUM 9.6 mg/dL (8.5-10.1); CARBON DIOXIDE 25.2 mmol/L (21.0-32.0); CHLORIDE - SERUM 103 mmol/L (98-107); CREATININE - SERUM 1.1 mg/dL (0.6-1.3); GLUCOSE 101 mg/dL (74-106); POTASSIUM - SERUM 3.9 mmol/L (3.5-5.1); SODIUM 138 mmol/L (136-145); UREA NITROGEN 13 mg/dL (7-18); eGFR NON AFRICAN AMERICAN 72 mL/min (90-120)
[2019-06-13 12:24] LABS: ALKALINE PHOSPHATASE 74 U/L (30-120); ALT (SGPT) 20 U/L (10-68); BILIRUBIN - TOTAL 0.66 mg/dL (0.2-1.3); CKMB 0.2 U/L (0.0-3.6); CREATINE KINASE 50 UL (21-232); PRO BNP 24 pg/mL (0-125); PROTEIN - SERUM 7.3 g/dL (6.4-8.2)
[2019-06-13 12:27] LABS: TROPONIN-I < 0.017 ng/mL (0.000-0.060)
[2019-06-13] MEDS ORDERED: AUGMENTIN 875-11 TAB PO (13:34)
[2019-06-13 13:54] VITALS: BP 171/69
== END 2019-06-13 14:01 | disposition home or self-care (01) ==
LOC: D.ER 10:50
PROVIDERS: Family Medicine
DX: J20.9 Acute bronchitis, unspecified (principal); K21.9 Gastro-esophageal reflux disease without esophagitis; R09.1 Pleurisy; G62.9 Polyneuropathy, unspecified

== ENCOUNTER 2019-06-19 22:48 | Inpatient (IN) | payer MEDICARE, OTHER ==
[~2019-06-19] VITALS: Ht 175.3 cm; Wt 85.3 kg
[2019-06-19 23:03] LABS: BASOPHILS 0.4 % (0-2); EOSINOPHILS 7.6 % (0-7); HEMATOCRIT 42.1 % (42.0-54.0); HEMOGLOBIN 14.7 g/dL (13.5-17.5); IMMATURE GRANULOCYTES 0.2 % (0-5); LYMPHOCYTES 40.7 % (15-50); MCH 28.7 pg (26.0-34.0); MCHC 34.9 g/dL (31.0-37.0); MCV 82.1 fL (80.0-100.0); MEAN PLATELET VOLUME 10.6 fL (7.4-10.4); MONOCYTES 6.9 % (2-11); NEUTROPHILS 44.2 % (40-80); PLATELET COUNT 196 10x3/uL (130-400); RBC 5.13 10x6/uL (4.20-6.10); RDW 13.4 % (11.5-14.5); WBC 5.4 10x3/uL (4.8-10.8)
[2019-06-19 23:11] LABS: CALC OSMOLALITY 277 mosm/kg (275-300); CALCIUM 8.9 mg/dL (8.5-10.1); CARBON DIOXIDE 27.3 mmol/L (21.0-32.0); CHLORIDE - SERUM 104 mmol/L (98-107); CREATININE - SERUM 1.5 mg/dL (0.6-1.3); GLUCOSE 113 mg/dL (74-106); POTASSIUM - SERUM 3.4 mmol/L (3.5-5.1); SODIUM 139 mmol/L (136-145); UREA NITROGEN 10 mg/dL (7-18); eGFR NON AFRICAN AMERICAN 50 mL/min (90-120)
[2019-06-19 23:20] LABS: ALBUMIN 3.9 g/dL (3.4-5.0); ALKALINE PHOSPHATASE 72 U/L (30-120); ALT (SGPT) 22 U/L (10-68); AMYLASE - SERUM 29 U/L (25-115); BILIRUBIN - TOTAL 0.39 mg/dL (0.2-1.3); LIPASE 172 U/L (73-393); PROTEIN - SERUM 7.3 g/dL (6.4-8.2); TROPONIN-I < 0.017 ng/mL (0.000-0.060)
[2019-06-20] VITALS (8 sets, daily range): BP systolic 107–142; BP diastolic 61–86
--- NOTE | 2019-06-20 01:00 | NUR ---
PT SITTING IN BED. RESPIRATIONS ARE EVEN AND UNLABORED. NO DISTRESS NOTED. COLOR WNL FOR RACE. FAMILY AT BEDSIDE. WILL CONTINUE TO MONITOR.
[2019-06-20 01:27] LABS: GLUCOSE NEGATIVE (NEGATIVE); KETONE NEGATIVE (NEGATIVE); NITRITE NEGATIVE (NEGATIVE); UROBILINOGEN NORMAL (NORMAL)
[2019-06-20 01:28] LABS: BILIRUBIN NEGATIVE (NEGATIVE)
--- NOTE | 2019-06-20 03:16 | NUR ---
AFTER ATTEMPTS X2 TO INSERT NG TUBE PT STATED "I HAVE HAD A SURGERY FOR REFLUX. WHERE THEY STOP IT." PT UNSURE OF WHEN THIS SURGERY WAS "MAYBE LAST YEAR".
--- NOTE | 2019-06-20 03:16 | NUR ---
ATTEMPTS X2 TO INSERT NG WITHOUT SUCCESS. ADVISED EDP JONO UNABLE TO INSERT NG TUBE.
--- NOTE | 2019-06-20 07:43 | NUR ---
UP AND DOWN TO THE BATHROOM, JUST VOIDING NOW. C/O ABD PAIN 09/21, PRN PAIN MED GIVEN. UNSTEADY GAIT WHEN UP, THE BED ALARM IS ON AND IN PLACE.
[2019-06-20 09:26] LABS: BASOPHILS 0.4 % (0-2); EOSINOPHILS 5.5 % (0-7); HEMATOCRIT 37.5 % (42.0-54.0); HEMOGLOBIN 12.6 g/dL (13.5-17.5); LYMPHOCYTES 39.7 % (15-50); MCH 27.8 pg (26.0-34.0); MCHC 33.6 g/dL (31.0-37.0); MCV 82.6 fL (80.0-100.0); MONOCYTES 8.5 % (2-11); NEUTROPHILS 45.9 % (40-80); RBC 4.54 10x6/uL (4.20-6.10); RDW 13.7 % (11.5-14.5); WBC 4.6 10x3/uL (4.8-10.8)
[2019-06-20 09:29] LABS: PLATELET COUNT 152 10x3/uL (130-400)
[2019-06-20 09:52] LABS: ANION GAP 9.9 mmol/L (8-16); CALCIUM 8.5 mg/dL (8.5-10.1); CARBON DIOXIDE 27.7 mmol/L (21.0-32.0); MAGNESIUM - SERUM 1.9 mg/dL (1.8-2.4); PHOSPHOROUS 3.4 mg/dL (2.5-4.9); POTASSIUM - SERUM 3.6 mmol/L (3.5-5.1)
[2019-06-20 10:04] LABS: CREATININE - SERUM 1.1 mg/dL (0.6-1.3)
--- NOTE | 2019-06-20 17:44 | NUR ---
NPO,THE BED ALARM IS ON. NO NEW ISSUES. HAS HAD A BM TODAY.
--- NOTE | 2019-06-20 19:05 | NUR ---
PATIENT LAYING IN BED SLEEPING. AROUSES TO NAME BEING CALLED. ALERT AND ORIENTED TO SELF, TIME, AND SITUATION BUT DOES NOT GIVE DETAILED RESPONSES. PATIENT HAS RIGHT FOREARM IV THAT IS INFUSING NS @ 125. ZOFRAN DRIP AT 4.7. SLIGHTLY DISTENDED STOMACH. HYPERACTIVE BS. PATIENT HAS SKYLER ALARM AND IS WORKING APPROPRIATELY. CALL LIGHT IN REACH. INSTRUCTED PATIENT ON NEED OF STOOL SAMPLE. DOOR OPEN FOR MONITORING. CLOSE TO NURSES STATION. CPOC.
--- NOTE | 2019-06-20 22:57 | NUR ---
HAT PLACED IN ROOM FOR STOOL SAMPLE
[2019-06-21] VITALS (7 sets, daily range): BP systolic 95–123; BP diastolic 46–64; Ht 175.3 cm; Wt 85.3 kg
--- NOTE | 2019-06-21 01:49 | NUR ---
I have reviewed this patient and I concur with the Shift Assessment completed by the Licensed Practical Nurse today this shift.
--- NOTE | 2019-06-21 01:52 | NUR ---
RESTING WITH NO SIGNS OR SYMPTOMS OF DISTRESS AT THIS TIME. CALL LIGHT IN REACH. SKYLER ALARM REMAINS ON. CPOC.
[2019-06-21 04:50] LABS: BASOPHILS 0.2 % (0-2); EOSINOPHILS 7.8 % (0-7); HEMATOCRIT 37.1 % (42.0-54.0); HEMOGLOBIN 12.5 g/dL (13.5-17.5); IMMATURE GRANULOCYTES 0.2 % (0-5); MCH 27.6 pg (26.0-34.0); MCHC 33.7 g/dL (31.0-37.0); MCV 81.9 fL (80.0-100.0); MEAN PLATELET VOLUME 10.9 fL (7.4-10.4); MONOCYTES 7.4 % (2-11); NEUTROPHILS 47.4 % (40-80); PLATELET COUNT 153 10x3/uL (130-400); RBC 4.53 10x6/uL (4.20-6.10); RDW 13.6 % (11.5-14.5); WBC 4.1 10x3/uL (4.8-10.8)
[2019-06-21 05:31] LABS: ANION GAP 9.2 mmol/L (8-16); BILIRUBIN - TOTAL 0.56 mg/dL (0.2-1.3); CALCIUM 8.2 mg/dL (8.5-10.1); CARBON DIOXIDE 25.4 mmol/L (21.0-32.0); CREATININE - SERUM 1.1 mg/dL (0.6-1.3); POTASSIUM - SERUM 3.6 mmol/L (3.5-5.1); PROTEIN - SERUM 5.5 g/dL (6.4-8.2)
[2019-06-21 05:33] LABS: ALBUMIN 2.9 g/dL (3.4-5.0)
--- NOTE | 2019-06-21 07:46 | NUR ---
PATIENT IS VERY QUITE THIS MORNING. HE WILL OPEN IS EYES A LITTLE WHEN HE TAKES HIS MEDICATIONS. HE GETS UP AND DOWN TO THE BATHROOM, BUT DOES NOT WANT TO MOVE, HE STAYS IN THE BED SLEEPING ALOT. THE BED ALARM IS ON.
--- NOTE | 2019-06-21 15:04 | NUR ---
HE HAD A BM TODAY, SLEEPING ALOT. THE BED ALARM IS ON.
--- NOTE | 2019-06-21 19:30 | NUR ---
A&O IN BED. COMPLAINTS OF PAIN TO ABDOMEN. DENTAL SALES REPRESENTATIVE NOTIFIED, WILL CONTINUE TO MONITOR.
[2019-06-22] VITALS: BP 120/50
[2019-06-22 04:00] VITALS: BP 106/47
--- NOTE | 2019-06-22 05:43 | NUR ---
I have reviewed this patient and I concur with the Shift Assessment completed by the Licensed Practical Nurse today this shift.
[2019-06-22 06:32] LABS: BASOPHILS 0.3 % (0-2); EOSINOPHILS 5.9 % (0-7); HEMATOCRIT 38.9 % (42.0-54.0); HEMOGLOBIN 13.5 g/dL (13.5-17.5); IMMATURE GRANULOCYTES 0.2 % (0-5); LYMPHOCYTES 27.2 % (15-50); MCH 27.9 pg (26.0-34.0); MCHC 34.7 g/dL (31.0-37.0); MCV 80.4 fL (80.0-100.0); MEAN PLATELET VOLUME 10.4 fL (7.4-10.4); MONOCYTES 5.3 % (2-11); NEUTROPHILS 61.1 % (40-80); PLATELET COUNT 147 10x3/uL (130-400); RBC 4.84 10x6/uL (4.20-6.10); RDW 13.2 % (11.5-14.5)
[2019-06-22 06:38] LABS: WBC 6.4 10x3/uL (4.8-10.8)
--- NOTE | 2019-06-22 06:41 | NUR ---
A&O X 4. SUPINE IN BED, ARMS ACROSS CHEST AND SHAKING. PT MOANING. VS STABLE, TELEMETRY READS 57 SINUS BRADYCARDIA. WHEN ASKED WHAT IS WRONG, HE STATES, "I DON'T KNOW." DENIES FEELING COLD/SHIVERING. REPORTS ABDOMINAL PAIN. WILL MONITOR CLOSELY.
[2019-06-22 07:05] LABS: ANION GAP 13.9 mmol/L (8-16); CALCIUM 8.7 mg/dL (8.5-10.1); CARBON DIOXIDE 25.7 mmol/L (21.0-32.0); CREATININE - SERUM 1.1 mg/dL (0.6-1.3); POTASSIUM - SERUM 3.6 mmol/L (3.5-5.1)
--- NOTE | 2019-06-22 08:04 | NUR ---
PATIENT RECIEVED RESTING IN BED, ALERT AND ORIENTED, C/O ABDOMINAL PAIN WITH PAIN MEDICAITON ON HOLD AT THIS TIME. NS INFUSING TO RIGHT FA @125. RESPIRATIONS REGULAR AND NONLABORED, WILL DISCUSS NEED FOR PAIN MEDICATION WITH COMPANY ACCOUNTANT. CL IN REACH
--- NOTE | 2019-06-22 08:06 | NUR ---
PATIENT RECIEVED FROM PREVIOUS NURSE RESTING IN BED WITH RESPIRTATIONS NON-LABORED, ALERT AND ORIENTED, DENIES PAIN, 02 2.5L HF, PRN SUCTION AT BEDSIDE, ASSISTED TO BSC WITH SMALL DARK GREEN LOOSE BM NOTED. CL IN REACH
[2019-06-22 10:07] VITALS: BP 132/63
[2019-06-22 14:39] VITALS: BP 118/68
[2019-06-22 17:25] VITALS: BP 134/89
--- NOTE | 2019-06-22 18:50 | NUR ---
PATIENT RESTING WITH CONTINUED DIARRHEA ESPECIALLY AFTER EATING. REPORTS ABD PAIN ALSO. STOOL SAMPLE SENT TO LAB. CL IN REACH
--- NOTE | 2019-06-22 19:00 | NUR ---
BEDSIDE REPORT RECEIVED AND CARE OF PT ASSUMED. PT LYING IN LOW TONY'S POSITION WATCHING TV. IV TO RIGHT FA PATENT WITH NS INFUSING AT 50 ML/HR. TELEMETRY IN PLACE PER ORDER. WILL MONITOR FOR NEEDS.
[2019-06-22 21:28] VITALS: BP 132/72
--- NOTE | 2019-06-22 22:08 | NUR ---
HS MEDICATIONS GIVEN. WILL CONTINUE TO MONITOR FOR NEEDS.
[2019-06-23 01:59] VITALS: BP 121/75
[2019-06-23 04:39] LABS: BASOPHILS 0.4 % (0-2); EOSINOPHILS 6.8 % (0-7); HEMATOCRIT 35.2 % (42.0-54.0); HEMOGLOBIN 12.3 g/dL (13.5-17.5); IMMATURE GRANULOCYTES 0.2 % (0-5); LYMPHOCYTES 32.2 % (15-50); MCH 27.6 pg (26.0-34.0); MCHC 34.9 g/dL (31.0-37.0); MCV 79.1 fL (80.0-100.0); MEAN PLATELET VOLUME 10.7 fL (7.4-10.4); MONOCYTES 9.6 % (2-11); NEUTROPHILS 50.8 % (40-80); PLATELET COUNT 173 10x3/uL (130-400); RBC 4.45 10x6/uL (4.20-6.10); RDW 13.4 % (11.5-14.5)
[2019-06-23 04:50] LABS: CALC OSMOLALITY 282 mosm/kg (275-300); CALCIUM 8.6 mg/dL (8.5-10.1); CARBON DIOXIDE 26.4 mmol/L (21.0-32.0); CHLORIDE - SERUM 109 mmol/L (98-107); CREATININE - SERUM 0.9 mg/dL (0.6-1.3); GLUCOSE 95 mg/dL (74-106); POTASSIUM - SERUM 3.3 mmol/L (3.5-5.1); SODIUM 143 mmol/L (136-145); UREA NITROGEN 6 mg/dL (7-18); eGFR NON AFRICAN AMERICAN > 90 mL/min (90-120)
[2019-06-23 06:04] VITALS: BP 128/70
[2019-06-23 08:00] VITALS: BP 126/83
[2019-06-23 12:00] VITALS: BP 124/71
[2019-06-23 17:09] VITALS: BP 113/71
--- NOTE | 2019-06-23 19:30 | NUR ---
A&O X 4. REPORTS PAIN LEVEL IS 7/10. DENIES N/V/D. INFORMED PT HE NEEDED SHOWER. REMOVED FROM IV AND TELEMETRY AND GIVEN SHOWER CHAIR. CONTINUE PLAN OF CARE.
[2019-06-23 21:09] VITALS: BP 131/76
[2019-06-24] VITALS (7 sets, daily range): BP systolic 113–139; BP diastolic 52–76
[2019-06-24 06:19] LABS: BASOPHILS 0.4 % (0-2); EOSINOPHILS 4.3 % (0-7); HEMATOCRIT 35.8 % (42.0-54.0); HEMOGLOBIN 12.4 g/dL (13.5-17.5); IMMATURE GRANULOCYTES 0.2 % (0-5); LYMPHOCYTES 26.4 % (15-50); MCH 27.6 pg (26.0-34.0); MCHC 34.6 g/dL (31.0-37.0); MCV 79.7 fL (80.0-100.0); MEAN PLATELET VOLUME 10.8 fL (7.4-10.4); MONOCYTES 9.6 % (2-11); NEUTROPHILS 59.1 % (40-80); PLATELET COUNT 158 10x3/uL (130-400); RBC 4.49 10x6/uL (4.20-6.10); RDW 13.5 % (11.5-14.5); WBC 4.9 10x3/uL (4.8-10.8)
[2019-06-24 06:41] LABS: CALC OSMOLALITY 277 mosm/kg (275-300); CARBON DIOXIDE 26.2 mmol/L (21.0-32.0); CHLORIDE - SERUM 108 mmol/L (98-107); CREATININE - SERUM 0.9 mg/dL (0.6-1.3); GLUCOSE 98 mg/dL (74-106); POTASSIUM - SERUM 3.4 mmol/L (3.5-5.1); SODIUM 141 mmol/L (136-145); UREA NITROGEN 5 mg/dL (7-18); eGFR NON AFRICAN AMERICAN > 90 mL/min (90-120)
--- NOTE | 2019-06-24 08:00 | NUR ---
ASSESSMENT PER FLOW SHEET. PATIENT IS WITHOUT DISTRESS.CALL LIGHT IN REACH
--- NOTE | 2019-06-24 10:22 | NUR ---
NUTRITION F/U CHART REVIEWED, PT VISIT. REPORTS HE STILL DOESN'T FEEL LIKE EATING MUCH. WILL CONTINUE TO PROVIDE FULL LIQUID DIET, MONITOR PO INTAKE. RD FOLLOWING
--- NOTE | 2019-06-24 12:01 | MORECARE ---
CASE MANAGEMENT DISCHARGE SUMMARY PATIENT: SONG MACKENZIE MARY UNIT: [id number] ADM DATE: 06/20/19 AGE: 64 : 57 SEX: M ROOM/BED: D.2207 AUTHOR: CORTEZ,DOC PHYSICIAN: REFERRING PHYSICIAN: EVAN JACOBO MD DATE OF SERVICE: 06/24/19 Discharge Plan Patient Name: SONG MACKENZIE Facility: [facility]:[place] : 1955 Planned Disposition: Home Anticipated Discharge Date: Discharge Date: Expected LOS: Initial Reviewer: [email or web address] Initial Review Date: 06/20/2019 Generated: 06/24/19 1:01 pm Comments DCP- Discharge Planning Updated by [email or web address]: Bebe Haines on 06/24/19 11:[address] Patient Name: SONG MACKENZIE Admission Status: ER Accout number: [id number] Admission Date: 06-20-2019 : 1955 Admission Diagnosis: Attending: EVAN JACOBO Current LOS: 4 Anticipated DC Date: Planned Disposition: Home Primary Insurance: HUMANA CHOICE PPO MCR ADVANT Discharge Planning Comments: CM met with patient to complete initial dc planning assessment. CM educated patient on the CM role and verbal consent given by patient to complete assessment. Patient lives at home with his where he is independent with his care. At discharge patient plans to return home and feels this is a safe discharge. CM discussed availability of home health, rehab services, and medical equipment. At this time he did not think he needed anything. Patient denied known discharge needs at this time. CM will continue to follow and will assist as needed with dc plans/needs. Manager [place]: Bebe Haines DCPIA - Discharge Planning Initial Assessment Updated by [email or web address]: Bebe Haines on 06/24/19 11:58 am * Is the patient Alert and Oriented? Yes * How many steps to enter\exit or inside your home? * PCP EUFEMIA * Pharmacy [facility] [place] * Preadmission Environment Home with Family * ADLs Independent * Equipment None * List name and contact numbers for known caregivers / representatives who currently or will assist patient after discharge: LOGAN (SON)[phone] * Verbal permission to speak to the caregivers and representatives has been obtained from the patient. N/A * Community resources currently utilized None * Additional services required to return to the preadmission environment? No * Can the patient safely return to the preadmission environment? Yes * Has this patient been hospitalized within the prior 30 days at any hospital? No Patient Name: SONG MACKENZIE Page [phone] at 1201 All edits/amendments must be made on the electronic document DICTATION DATE: 06/24/191200 INTERN PRODUCT MARKETING MANAGER: TRICIA 06/24/191200 RPT#: [id number] DC DATE: STATUS: ADM IN [facility] [address] [place] [address] END OF REPORT
--- NOTE | 2019-06-24 17:23 | NUR ---
WAITING ON GOLYTELY PREP FROM PHARMACY,SPOKE WITH LITZY
--- NOTE | 2019-06-24 18:07 | NUR ---
CALL TO PHARMACY FOR TORREYLY PREP,SPOKE BRANDON.SHE WILL BRING PREP UP.
--- NOTE | 2019-06-24 19:45 | NUR ---
LYING IN BED. NOT DRINKING GOLYTELY. ENCOURAGED IMPORTANCE OF DRINKING GI PREP FOR COLONOSCOPY. HE STATES, "I'LL TRY. I DONT KNOW IF I CAN OR NOT." REPORTS LOWER ABD PAIN 6. TELEMETRY SHOWS SB. RESP EVEN AND NONLABORED. NS @ 25 MLHR INFUSING IN RT WRIST WITH PROCAL @ 75 MLHR. INSTRUCTED OF NPO AFTER MIDNIGHT AND HE VERBALIZED UNDERSTANDING.
--- NOTE | 2019-06-24 21:15 | NUR ---
PM MEDS GIVEN. DRINKING GOLYTELY SLOWLY. ENCOURAGED TO DRINK BEFORE MIDNIGHT. HE STATES HE WILL TRY. STATES HE IS PASSING GAS BUT NO BM YET.
--- NOTE | 2019-06-24 22:30 | NUR ---
PROCEDURE CONSENTS SIGNED AND PLACED ON CHART. PT HAVING BOWEL MOVEMENTS NOW. INSTRUCTED PT TO CALL STAFF TO ROOM TO OBSERVE BM BEFORE FLUSHING.
--- NOTE | 2019-06-25 00:10 | NUR ---
HAS ONLY DRANK APPROX 33% OF GOLwufooLY PREP OF THIS TIME. BMS ARE YELLOW AND LOOSE BUT NOT CLEAR YET.
[2019-06-25 04:00] VITALS: BP 114/62
[2019-06-25 04:46] LABS: BASOPHILS 0.4 % (0-2); HEMATOCRIT 36.7 % (42.0-54.0); HEMOGLOBIN 12.6 g/dL (13.5-17.5); IMMATURE GRANULOCYTES 0.2 % (0-5); LYMPHOCYTES 27.6 % (15-50); MCH 27.5 pg (26.0-34.0); MCHC 34.3 g/dL (31.0-37.0); MCV 80.1 fL (80.0-100.0); MEAN PLATELET VOLUME 10.9 fL (7.4-10.4); MONOCYTES 9.6 % (2-11); NEUTROPHILS 57.2 % (40-80); PLATELET COUNT 157 10x3/uL (130-400); RBC 4.58 10x6/uL (4.20-6.10); RDW 13.5 % (11.5-14.5); WBC 5.4 10x3/uL (4.8-10.8)
[2019-06-25 05:12] LABS: CALC OSMOLALITY 277 mosm/kg (275-300); CALCIUM 8.8 mg/dL (8.5-10.1); CARBON DIOXIDE 28.5 mmol/L (21.0-32.0); CHLORIDE - SERUM 106 mmol/L (98-107); CREATININE - SERUM 0.8 mg/dL (0.6-1.3); GLUCOSE 94 mg/dL (74-106); POTASSIUM - SERUM 3.4 mmol/L (3.5-5.1); SODIUM 141 mmol/L (136-145); eGFR NON AFRICAN AMERICAN > 90 mL/min (90-120)
[2019-06-25 05:14] LABS: UREA NITROGEN 3 mg/dL (7-18)
--- NOTE | 2019-06-25 06:40 | NUR ---
WAS UNABLE TO COMPLETE GOLYTELY PREP AND AT LAST OBSERVATION PER STAFF, BM WAS NOT CLEAR.
--- NOTE | 2019-06-25 07:10 | NUR ---
PT IS RESTING IN BED WITH EYES OPEN. RESPIRATIONS ARE EVEN AND UNLABORED. PT REPORTS SLIGHT DISCOMFORT TO ABDOMINAL AREA BUT DENIES N/V. PT STATES HE HAS HAD FREQUENT LOOSE STOOLS AND STATES THAT THEY ARE YELLOW IN COLOR. BS HYPER ACTIVE X 4. PT DENIES PRESENCE OF TENDERNESS UPON PALPATION TO ABDOMEN. BED IS IN THE LOWEST POSITION. CALL LIGHT AND BEDSIDE TABLE ARE WITHIN REACH. SIDE RAILS X 2. FAMILY AT BEDSIDE. PT AND PT FAMILY DENY FURTHER NEEDS. AT THIS TIME. WILL CONT TO MONITOR.
--- NOTE | 2019-06-25 08:24 | NUR ---
PT TRANSPORTED OFF FLOOR VIA BED ESCORTED BY GI STAFF FOR PROCEDURE. FAMILY AT BEDSIDE. PT AND PT FAMILY MEMBER DENY FURTHER NEEDS AT THIS TIME.
[2019-06-25 08:57] VITALS: BP 131/81
--- NOTE | 2019-06-25 09:27 | NUR ---
PT ARRIVES BACK TO ROOM AAO X 4 FROM PROCEDURE. PT DENIES PRESENCE OF PAIN/N/V. FOOD TRAY AT BEDSIDE PT TOLERATING DIET AT THIS TIME. VSS SEE FLOWSHEET. FAMILY AT BEDSIDE. BED IS IN THE LOWEST POSITION. CALL LIGHT AND BEDSIDE TABLE ARE WITHIN REACH. SIDE RAILS X 2. PT DENIES FURTHER NEEDS. WILL CONT TO MONITOR.
[2019-06-25 09:29] VITALS: BP 120/74
[2019-06-25 12:48] VITALS: BP 135/69
[2019-06-25 13:48] VITALS: BP 135/79
[2019-06-25 20:00] VITALS: BP 116/71
[2019-06-26] VITALS: BP 120/60
[2019-06-26 04:00] VITALS: BP 144/75
[2019-06-26 06:44] LABS: BASOPHILS 0.4 % (0-2); EOSINOPHILS 3.9 % (0-7); HEMATOCRIT 38.1 % (42.0-54.0); HEMOGLOBIN 13.1 g/dL (13.5-17.5); MCH 27.8 pg (26.0-34.0); MCHC 34.4 g/dL (31.0-37.0); MCV 80.9 fL (80.0-100.0); MONOCYTES 10.4 % (2-11); NEUTROPHILS 58.3 % (40-80); PLATELET COUNT 160 10x3/uL (130-400); RBC 4.71 10x6/uL (4.20-6.10); RDW 13.9 % (11.5-14.5); WBC 5.1 10x3/uL (4.8-10.8)
[2019-06-26 06:49] LABS: CALC OSMOLALITY 278 mosm/kg (275-300); CALCIUM 8.7 mg/dL (8.5-10.1); CARBON DIOXIDE 27.4 mmol/L (21.0-32.0); CHLORIDE - SERUM 107 mmol/L (98-107); CREATININE - SERUM 0.8 mg/dL (0.6-1.3); GLUCOSE 106 mg/dL (74-106); POTASSIUM - SERUM 3.9 mmol/L (3.5-5.1); SODIUM 141 mmol/L (136-145); UREA NITROGEN 8 mg/dL (7-18); eGFR NON AFRICAN AMERICAN > 90 mL/min (90-120)
--- NOTE | 2019-06-26 07:47 | NUR ---
PT RESTING IN BED WITH EYES CLOSED, EASILY AROUSED TO SPEECH, ALERT AND ORIENTED. IV LOCATED TO RIGHT WRIST RUNNING @ 25, PROCAL @ 75ML/HR. NO S/S OF DISTRESS AT THIS TIME, DENIES NEEDS AT THIS TIME, WILL CONT TO MONITOR.
[2019-06-26 08:29] VITALS: BP 125/78
[2019-06-26 12:47] VITALS: BP 137/74
[2019-06-26 16:45] VITALS: BP 108/70
[2019-06-26 20:00] VITALS: BP 106/62
--- NOTE | 2019-06-26 21:00 | NUR ---
WATCHING TV QUEITLY WITH NO DISTRESS NOTED. RESP UNLABORED.NO COMPLAITNS OF NAUSEA. IV TO RIGHT WRIST INTACT WITHOUT REDNESS OR EDEMA NOTED. CL IN REACH
[2019-06-27] VITALS: BP 113/75
[2019-06-27 04:00] VITALS: BP 123/75
--- NOTE | 2019-06-27 07:04 | NUR ---
I have reviewed this patient and I concur with the Shift Assessment completed by the Licensed Practical Nurse today this shift.
[2019-06-27 07:39] VITALS: BP 123/72
--- NOTE | 2019-06-27 08:13 | NUR ---
AWAKE, LYING ON THE LEFT SIDE, HE STATES HIS PAIN IS A LITTLE BETTER, STILL IN HIS ABDOMEN.
[2019-06-27 11:47] VITALS: BP 105/61
--- NOTE | 2019-06-27 13:36 | NUR ---
WALKED 2 TIMES AROUND THE NURSES STATION, SETTING UP IN THE CHAIR NOW.
[2019-06-27 14:35] LABS: BASOPHILS 0.8 % (0-2); EOSINOPHILS 5.1 % (0-7); HEMATOCRIT 42.9 % (42.0-54.0); HEMOGLOBIN 14.8 g/dL (13.5-17.5); LYMPHOCYTES 26.8 % (15-50); MCH 28.8 pg (26.0-34.0); MCHC 34.5 g/dL (31.0-37.0); MEAN PLATELET VOLUME 11.3 fL (7.4-10.4); MONOCYTES 7.6 % (2-11); NEUTROPHILS 59.7 % (40-80); PLATELET COUNT 160 10x3/uL (130-400); RBC 5.14 10x6/uL (4.20-6.10); RDW 14.1 % (11.5-14.5); WBC 5.1 10x3/uL (4.8-10.8)
[2019-06-27 14:36] LABS: MCV 83.5 fL (80.0-100.0)
[2019-06-27] MEDS ORDERED: FLAGYL500 MG PO (14:37)
[2019-06-27 15:11] LABS: CALC OSMOLALITY 280 mosm/kg (275-300); CALCIUM 8.8 mg/dL (8.5-10.1); CARBON DIOXIDE 29.3 mmol/L (21.0-32.0); CHLORIDE - SERUM 106 mmol/L (98-107); GLUCOSE 106 mg/dL (74-106); POTASSIUM - SERUM 3.8 mmol/L (3.5-5.1); SODIUM 141 mmol/L (136-145); UREA NITROGEN 13 mg/dL (7-18); eGFR NON AFRICAN AMERICAN 80 mL/min (90-120)
--- NOTE | 2019-06-27 16:20 | NUR ---
DISCHARGE INSTRUCTIONS GONE OVER. IV OUT. HIS IS DOWNSTAIRS, LEFT VIA WHEELCHAIR.
--- NOTE | 2019-06-27 17:08 | MORECARE ---
CASE MANAGEMENT DISCHARGE SUMMARY PATIENT: SONG MACKENZIE MARY UNIT: [id number] ADM DATE: 06/20/19 AGE: 64 : 57 SEX: M ROOM/BED: D.2207 AUTHOR: CORTEZDOC PHYSICIAN: REFERRING PHYSICIAN: EVAN JACOBO MD DATE OF SERVICE: 06/27/19 Discharge Plan Patient Name: SONG MACKENZIE Facility: [facility]:[place] : 1955 Planned Disposition: Home Anticipated Discharge Date: Discharge Date: 06/27/2019 Expected LOS: Initial Reviewer: [email or web address] Initial Review Date: 06/20/2019 Generated: 06/27/19 6:07 pm DCP- Discharge Planning Updated by [email or web address]: Bebe Haines on 06/24/19 11:[address] Patient Name: SONG MACKENZIE Admission Status: ER Accout number: [id number] Admission Date: 06-20-2019 : 1955 Admission Diagnosis: Attending: EVAN JACOBO Current LOS: 4 Anticipated DC Date: Planned Disposition: Home Primary Insurance: HUMANA CHOICE PPO MCR ADVANT Discharge Planning Comments: CM met with patient to complete initial dc planning assessment. CM educated patient on the CM role and verbal consent given by patient to complete assessment. Patient lives at home with his where he is independent with his care. At discharge patient plans to return home and feels this is a safe discharge. CM discussed availability of home health, rehab services, and medical equipment. At this time he did not think he needed anything. Patient denied known discharge needs at this time. CM will continue to follow and will assist as needed with dc plans/needs. Side Panel Padder: Bebe Haines DCPIA - Discharge Planning Initial Assessment Updated by [email or web address]: Bebe Haines on 06/24/19 11:58 am * Is the patient Alert and Oriented? Yes * How many steps to enter\exit or inside your home? * PCP [facility] * Pharmacy [facility] [place] * Preadmission Environment Home with Family * ADLs Independent * Equipment None * List name and contact numbers for known caregivers / representatives who currently or will assist patient after discharge: LOGAN (SON)[phone] * Verbal permission to speak to the caregivers and representatives has been obtained from the patient. N/A * Community resources currently utilized None * Additional services required to return to the preadmission environment? No * Can the patient safely return to the preadmission environment? Yes * Has this patient been hospitalized within the prior 30 days at any hospital? No Coverage Notice Reviewer: [email or web address] Anjel Pemberton Notice Issued Date-Time: 06/27/2019 14:50 Notice Type: IM Discharge Notice Notice Delivered To: Patient Relationship to Patient: Word Processor Operator Name: Delivery Method: HAND - Hand Delivered Ce Days: Prior Verbal Notification: Recipient Understood Notice: Yes Recipient Signature: Yes Med Rec Note Co-signed by Attending: Coverage Notice Comment: Last DP export: 06/24/19 11:01 a Patient Name: SONG MACKENZIE Page [phone] at 1708 All edits/amendments must be made on the electronic document DICTATION DATE: 06/27/191706 CRTT: TRICIA 06/27/191706 RPT#: [id number] DC DATE:06/27/19 STATUS: DIS IN [facility] [address] [place] [address] END OF REPORT
== END 2019-06-27 16:23 | disposition home or self-care (01) | DRG 391 ==
LOC: D.ER 22:48 → D.MS 06-20 01:32
PROVIDERS: Emergency Medicine; Family Medicine; Internal Medicine Gastroenterology; ADMIT Internal Medicine Nephrology; ATTEND Internal Medicine Nephrology
PROC: 0DJD8ZZ Inspection of Lower Intestinal Tract, Via Natural or Artificial Opening Endoscopic (ICD-10-PCS; principal; 2019-06-25 08:30)
DX: K52.9 Noninfective gastroenteritis and colitis, unspecified (principal); J18.9 Pneumonia, unspecified organism; N17.9 Acute kidney failure, unspecified; J98.11 Atelectasis; I25.10 Atherosclerotic heart disease of native coronary artery without angina pectoris; K22.2 Esophageal obstruction; G62.9 Polyneuropathy, unspecified; K21.9 Gastro-esophageal reflux disease without esophagitis; F41.8 Other specified anxiety disorders

== ENCOUNTER 2019-08-19 10:35 | Emergency (ER) | payer MEDICARE, OTHER ==
[2019-06-21 12:26] VITALS: Ht 175.3 cm; Wt 81.8 kg
[~2019-08-19] VITALS: Ht 175.3 cm; Wt 81.8 kg
[~2019-08-19 10:35] MED LIST changes: +FLAGYL500 MG PO
[2019-08-19 10:48] VITALS: BP 119/73
[2019-08-19 11:18] LABS: HEMATOCRIT 47.8 % (42.0-54.0); HEMOGLOBIN 15.9 g/dL (13.5-17.5); MCH 28.1 pg (26.0-34.0); MCV 84.6 fL (80.0-100.0); RBC 5.65 10x6/uL (4.20-6.10); WBC 7.1 10x3/uL (4.8-10.8)
[2019-08-19 11:19] LABS: BASOPHILS 0.3 % (0-2); EOSINOPHILS 4.4 % (0-7); IMMATURE GRANULOCYTES 0.3 % (0-5); LYMPHOCYTES 14.1 % (15-50); MCHC 33.3 g/dL (31.0-37.0); MEAN PLATELET VOLUME 10.5 fL (7.4-10.4); MONOCYTES 6.9 % (2-11); PLATELET COUNT 152 10x3/uL (130-400); RDW 13.8 % (11.5-14.5)
[2019-08-19 11:27] LABS: CALC OSMOLALITY 277 mosm/kg (275-300); CALCIUM 9.4 mg/dL (8.5-10.1); CARBON DIOXIDE 25.8 mmol/L (21.0-32.0); CHLORIDE - SERUM 105 mmol/L (98-107); CREATININE - SERUM 1.1 mg/dL (0.6-1.3); GLUCOSE 105 mg/dL (74-106); SODIUM 140 mmol/L (136-145); UREA NITROGEN 10 mg/dL (7-18); eGFR NON AFRICAN AMERICAN 72 mL/min (90-120)
[2019-08-19 11:35] LABS: ALBUMIN 4.2 g/dL (3.4-5.0); ALKALINE PHOSPHATASE 69 U/L (30-120); ALT (SGPT) 23 U/L (10-68); AMYLASE - SERUM 31 U/L (25-115); BILIRUBIN - TOTAL 0.64 mg/dL (0.2-1.3); LIPASE 131 U/L (73-393); PROTEIN - SERUM 7.6 g/dL (6.4-8.2)
[2019-08-19 11:36] LABS: TROPONIN-I < 0.017 ng/mL (0.000-0.060)
[2019-08-19] MEDS ORDERED: FLORASTOR250 MG PO (12:25)
[2019-08-19] MEDS ORDERED: FLAGYL500 MG PO (12:25)
[2019-08-19] MEDS ORDERED: LEVAQUIN750 MG PO (12:25)
[2019-08-19 12:41] LABS: BILIRUBIN NEGATIVE (NEGATIVE); GLUCOSE NEGATIVE (NEGATIVE); KETONE NEGATIVE (NEGATIVE); NITRITE NEGATIVE (NEGATIVE); SPECIFIC GRAVITY 1.015 (1.005-1.020); UROBILINOGEN NORMAL (NORMAL)
[2019-08-20] MEDS ORDERED: QUESTRAN LIG1 PACKET PO (08:23)
== END 2019-08-19 13:09 | disposition home or self-care (01) ==
LOC: D.ER 10:35
PROVIDERS: Family Medicine
DX: R10.9 Unspecified abdominal pain (principal); R19.7 Diarrhea, unspecified

== ENCOUNTER 2019-08-19 18:53 | Observation (INO) | payer MEDICARE, OTHER ==
[~2019-08-19] VITALS: Ht 175.3 cm; Wt 71.7 kg
[~2019-08-19 18:53] MED LIST changes: +LEVAQUIN750 MG PO
[2019-08-19 19:38] VITALS: BP 104/69
[2019-08-19 23:34] VITALS: BP 123/72; BMI 23.3
[2019-08-20 04:00] VITALS: BP 113/64
[2019-08-20 05:03] LABS: BASOPHILS 0.8 % (0-2); EOSINOPHILS 5.5 % (0-7); HEMOGLOBIN 13.8 g/dL (13.5-17.5); IMMATURE GRANULOCYTES 0.2 % (0-5); LYMPHOCYTES 22.6 % (15-50); MCH 27.9 pg (26.0-34.0); MCHC 32.9 g/dL (31.0-37.0); MCV 84.8 fL (80.0-100.0); MEAN PLATELET VOLUME 11.1 fL (7.4-10.4); NEUTROPHILS 60.9 % (40-80); PLATELET COUNT 167 10x3/uL (130-400); RBC 4.95 10x6/uL (4.20-6.10); RDW 13.8 % (11.5-14.5)
[2019-08-20 05:17] LABS: CALC OSMOLALITY 277 mosm/kg (275-300); CALCIUM 8.7 mg/dL (8.5-10.1); CARBON DIOXIDE 25.8 mmol/L (21.0-32.0); CHLORIDE - SERUM 108 mmol/L (98-107); GLUCOSE 94 mg/dL (74-106); MAGNESIUM - SERUM 1.7 mg/dL (1.8-2.4); PHOSPHOROUS 3.5 mg/dL (2.5-4.9); POTASSIUM - SERUM 3.6 mmol/L (3.5-5.1); SODIUM 140 mmol/L (136-145); UREA NITROGEN 9 mg/dL (7-18); eGFR NON AFRICAN AMERICAN 80 mL/min (90-120)
[2019-08-20 05:18] LABS: WBC 5.3 10x3/uL (4.8-10.8)
--- NOTE | 2019-08-20 07:35 | NUR ---
ASSESSMENT DONE. DENIES NEEDS
[2019-08-20] MEDS ORDERED: QUESTRAN LIG1 PACKET PO (08:23)
[2019-08-20 10:17] VITALS: BP 117/66
--- NOTE | 2019-08-20 11:00 | NUR ---
I have reviewed this patient and I concur with the Shift Assessment completed by the Licensed Practical Nurse today this shift.
[2019-08-20 11:21] VITALS: Ht 175.3 cm; Wt 71.7 kg
[2019-08-20 11:27] LABS: ALBUMIN 3.4 g/dL (3.4-5.0); BILIRUBIN - DIRECT 0.14 mg/dL (0.00-0.30); BILIRUBIN - INDIRECT 0.61 mg/dL (0.00-1.00); BILIRUBIN - TOTAL 0.75 mg/dL (0.2-1.3); PROTEIN - SERUM 6.3 g/dL (6.4-8.2)
[2019-08-20 14:42] VITALS: BP 125/68
--- NOTE | 2019-08-20 17:11 | NUR ---
WITHOUT CHANGES OR DISTRESS NOTED AT THIS TIME. DENIES NEEDS
[2019-08-20 18:14] VITALS: BP 110/63
--- NOTE | 2019-08-20 20:00 | NUR ---
SHIFT ASSESSMENT COMPLETED, MEDICATION RECEIVED PER ORDER. SEE EMAR FOR ADMINISTRATION. PATIENT DENIES NEEDS AT THIS TIME
[2019-08-20 21:21] VITALS: BP 156/75
--- NOTE | 2019-08-20 23:06 | NUR ---
ANSWERED PT CALL LIGHT, PT C/O RIGHT ARM PAIN AT IV SITE. IV MEDICATIONS PAUSED AT THIS TIME. UPON ASSESSMENT RIGHT FOREARM IV INFILTRATED - IV DC'D CATH INTACT. NEW IV RESITED 20G LEFT WRIST, FLUSH AND DRAW. IV MEDICATIONS RESTARTED. PT RECEIVED ICE PACK FOR AFFECTED RIGHT ARM. COMPLAINS OF PAIN IN HIS TOES. STATES HE HAS GOUT AND HAS HAD ISSUES WITH THEM FOR YEARS. ALSO COMPLAINS OF BEING UNABLE TO SLEEP FOR 3 NIGHTS. DENIES NEEDS AT THIS TIME WILL CONTINUE TO MONITOR
[2019-08-21 00:01] VITALS: BP 104/63
[2019-08-21 04:00] VITALS: BP 113/70
--- NOTE | 2019-08-21 04:32 | NUR ---
NO ACUTE FINDINGS AT THIS TIME, PT RESTING COMFORTABLY EVEN RISE AND FALL OF CHEST. CALL HUNTER IN REACH. CPOC
[2019-08-21 05:12] LABS: CALC OSMOLALITY 278 mosm/kg (275-300); CALCIUM 8.8 mg/dL (8.5-10.1); CARBON DIOXIDE 24.8 mmol/L (21.0-32.0); CHLORIDE - SERUM 108 mmol/L (98-107); GLUCOSE 96 mg/dL (74-106); MAGNESIUM - SERUM 1.8 mg/dL (1.8-2.4); PHOSPHOROUS 3.4 mg/dL (2.5-4.9); POTASSIUM - SERUM 3.6 mmol/L (3.5-5.1); SODIUM 141 mmol/L (136-145); UREA NITROGEN 8 mg/dL (7-18); eGFR NON AFRICAN AMERICAN 80 mL/min (90-120)
[2019-08-21 05:13] LABS: HEMATOCRIT 38.9 % (42.0-54.0); HEMOGLOBIN 13.1 g/dL (13.5-17.5); LYMPHOCYTES 31.3 % (15-50); MCH 27.6 pg (26.0-34.0); MCHC 33.7 g/dL (31.0-37.0); MCV 82.1 fL (80.0-100.0); MEAN PLATELET VOLUME 11.1 fL (7.4-10.4); NEUTROPHILS 55.6 % (40-80); PLATELET COUNT 140 10x3/uL (130-400); RBC 4.74 10x6/uL (4.20-6.10); RDW 13.6 % (11.5-14.5); WBC 3.5 10x3/uL (4.8-10.8)
--- NOTE | 2019-08-21 07:30 | NUR ---
LAYING SUPINE, RR EVEN AND UNLABORED. WHEN ASKED IF HE NEEDED ANYTHING, PT DID NOT SAY ANYTHING. ASKED AGAIN, PT LOOKED AT ME AND DID NOT SAY ANYTHING. FACIAL GRIMACING NOTED. ASKED IF HE WAS IN PAIN, AGAIN, PT SAID NOTHING. BED IN LOWEST POSITION. CALL LIGHT WITHIN REACH. WILL CONTINUE TO MONITOR.
[2019-08-21 08:36] VITALS: BP 121/69
--- NOTE | 2019-08-21 12:57 | NUR ---
ASKED IF PT HAD A RIDE HOME. STATED HE NEEDED ME TO CALL HIS . SPOKE WITH , WILL BE HERE IN APPROX AN HOUR.
--- NOTE | 2019-08-21 13:52 | NUR ---
D/C INSTRUCTIONS REVIEWED WITH PT. VERBALIZED AGREEMENT. IV C/D WITH CATHETER TIP INTACT. LEFT VIA WHEELCHAIR WITH ALL BELONGINGS TO PERSONAL VEHICLE.
== END 2019-08-21 13:53 | disposition home or self-care (01) ==
LOC: D.ER 18:53 → OBSVTIME 19:52 → D.M2 19:52
PROVIDERS: ADMIT Internal Medicine Nephrology; ATTEND Internal Medicine Nephrology
DX: K31.84 Gastroparesis (principal); I10 Essential (primary) hypertension; K21.9 Gastro-esophageal reflux disease without esophagitis; G89.29 Other chronic pain; M54.9 Dorsalgia, unspecified; M79.7 Fibromyalgia; N40.0 Benign prostatic hyperplasia without lower urinary tract symptoms; F41.8 Other specified anxiety disorders; G47.00 Insomnia, unspecified

== ENCOUNTER 2019-09-02 15:42 | Emergency (ER) | payer MEDICARE, OTHER ==
[~2019-09-02] VITALS: Ht 175.3 cm; Wt 86.4 kg
[~2019-09-02 15:42] MED LIST changes: +QUESTRAN LIG1 PACKET PO
[2019-09-02 15:52] VITALS: Ht 175.3 cm; Wt 86.4 kg
[2019-09-02 16:18] LABS: BASOPHILS 0.4 % (0-2); BILIRUBIN NEGATIVE (NEGATIVE); EOSINOPHILS 3.9 % (0-7); GLUCOSE NEGATIVE (NEGATIVE); HEMATOCRIT 44.6 % (42.0-54.0); HEMOGLOBIN 15.2 g/dL (13.5-17.5); IMMATURE GRANULOCYTES 0.3 % (0-5); KETONE NEGATIVE (NEGATIVE); LYMPHOCYTES 18.6 % (15-50); MCH 28.1 pg (26.0-34.0); MCHC 34.1 g/dL (31.0-37.0); MCV 82.4 fL (80.0-100.0); MEAN PLATELET VOLUME 10.7 fL (7.4-10.4); MONOCYTES 7.3 % (2-11); NEUTROPHILS 69.5 % (40-80); NITRITE NEGATIVE (NEGATIVE); RBC 5.41 10x6/uL (4.20-6.10); RDW 13.8 % (11.5-14.5); UROBILINOGEN NORMAL (NORMAL); WBC 7.4 10x3/uL (4.8-10.8)
[2019-09-02 16:23] LABS: PLATELET COUNT 182 10x3/uL (130-400)
[2019-09-02 16:42] LABS: CALC OSMOLALITY 273 mosm/kg (275-300); CALCIUM 9.2 mg/dL (8.5-10.1); CARBON DIOXIDE 28.2 mmol/L (21.0-32.0); CHLORIDE - SERUM 102 mmol/L (98-107); CREATININE - SERUM 1.2 mg/dL (0.6-1.3); GLUCOSE 124 mg/dL (74-106); POTASSIUM - SERUM 3.8 mmol/L (3.5-5.1); SODIUM 136 mmol/L (136-145); UREA NITROGEN 15 mg/dL (7-18); eGFR NON AFRICAN AMERICAN 65 mL/min (90-120)
[2019-09-02 16:51] LABS: ALBUMIN 4.1 g/dL (3.4-5.0); ALKALINE PHOSPHATASE 60 U/L (30-120); ALT (SGPT) 24 U/L (10-68); AMYLASE - SERUM 44 U/L (25-115); BILIRUBIN - TOTAL 0.52 mg/dL (0.2-1.3); LIPASE 242 U/L (73-393); PROTEIN - SERUM 7.2 g/dL (6.4-8.2); TROPONIN-I < 0.017 ng/mL (0.000-0.060)
[2019-09-02] MEDS ORDERED: ZOFRAN ODT4 MG/UDTAB PO (19:20)
[2019-09-02] MEDS ORDERED: OMEPRAZOLE40 MG PO (19:20)
[2019-09-02 19:46] VITALS: BP 119/78
== END 2019-09-02 19:48 | disposition home or self-care (01) ==
LOC: D.ER 15:42
PROVIDERS: Family Medicine
DX: R10.13 Epigastric pain (principal); K29.70 Gastritis, unspecified, without bleeding; R11.2 Nausea with vomiting, unspecified; R19.7 Diarrhea, unspecified; G62.9 Polyneuropathy, unspecified; I10 Essential (primary) hypertension; K21.9 Gastro-esophageal reflux disease without esophagitis

== ENCOUNTER 2019-11-11 10:15 | Emergency (ER) | payer MEDICARE, OTHER ==
[~2019-11-11] VITALS: Ht 175.3 cm; Wt 72.7 kg
[~2019-11-11 10:15] MED LIST changes: +OMEPRAZOLE40 MG PO
[2019-11-11 10:19] VITALS: Ht 175.3 cm; Wt 72.7 kg
[2019-11-11 10:42] LABS: BASOPHILS 0.4 % (0-2); EOSINOPHILS 2.2 % (0-7); HEMATOCRIT 45.7 % (42.0-54.0); HEMOGLOBIN 15.4 g/dL (13.5-17.5); IMMATURE GRANULOCYTES 0.3 % (0-5); LYMPHOCYTES 13.5 % (15-50); MCH 28.2 pg (26.0-34.0); MCHC 33.7 g/dL (31.0-37.0); MCV 83.7 fL (80.0-100.0); MEAN PLATELET VOLUME 10.6 fL (7.4-10.4); MONOCYTES 5.6 % (2-11); PLATELET COUNT 165 10x3/uL (130-400); RBC 5.46 10x6/uL (4.20-6.10); WBC 9.3 10x3/uL (4.8-10.8)
[2019-11-11 10:47] LABS: BILIRUBIN NEGATIVE (NEGATIVE); GLUCOSE NEGATIVE (NEGATIVE); KETONE NEGATIVE (NEGATIVE); NITRITE NEGATIVE (NEGATIVE); UROBILINOGEN NORMAL (NORMAL)
[2019-11-11 10:49] LABS: CALC OSMOLALITY 279 mosm/kg (275-300); CARBON DIOXIDE 27.9 mmol/L (21.0-32.0); CHLORIDE - SERUM 105 mmol/L (98-107); GLUCOSE 114 mg/dL (74-106); POTASSIUM - SERUM 4.1 mmol/L (3.5-5.1); SODIUM 140 mmol/L (136-145); UREA NITROGEN 13 mg/dL (7-18); eGFR NON AFRICAN AMERICAN 80 mL/min (90-120)
[2019-11-11 10:50] LABS: BACTERIA FEW /hpf (NEGATIVE); EPITHELIAL CELLS 0-5 /hpf (0-5); RED CELLS - URINE RARE /hpf (0-5); WHITE CELLS - URINE 0-5 /hpf (NEGATIVE)
[2019-11-11 10:58] LABS: ALBUMIN 4.3 g/dL (3.4-5.0); ALKALINE PHOSPHATASE 66 U/L (30-120); ALT (SGPT) 22 U/L (10-68); AMYLASE - SERUM 33 U/L (25-115); BILIRUBIN - TOTAL 0.63 mg/dL (0.2-1.3); LIPASE 151 U/L (73-393); PROTEIN - SERUM 7.5 g/dL (6.4-8.2); TROPONIN-I < 0.017 ng/mL (0.000-0.060)
[2019-11-11] MEDS ORDERED: FLAGYL500 MG PO (11:39)
[2019-11-11] MEDS ORDERED: ANUSOL-HC25 MG RC (11:39)
[2019-11-11] MEDS ORDERED: AUGMENTIN 875-11 TAB PO (11:39)
[2019-11-11 12:20] VITALS: BP 132/73
== END 2019-11-11 12:25 | disposition home or self-care (01) ==
LOC: D.ER 10:15
PROVIDERS: Family Medicine
DX: K57.92 Diverticulitis of intestine, part unspecified, without perforation or abscess without bleeding (principal); R19.7 Diarrhea, unspecified; K64.8 Other hemorrhoids; K21.9 Gastro-esophageal reflux disease without esophagitis

== ENCOUNTER 2019-11-16 12:03 | Inpatient (IN) | payer MEDICARE, OTHER ==
[~2019-11-16] VITALS: Ht 175.3 cm; Wt 79.4 kg
[~2019-11-16 12:03] MED LIST changes: +ANUSOL-HC25 MG RC
[2019-11-16 13:32] LABS: BASOPHILS 0.6 % (0-2); EOSINOPHILS 4.7 % (0-7); HEMATOCRIT 43.3 % (42.0-54.0); HEMOGLOBIN 14.5 g/dL (13.5-17.5); IMMATURE GRANULOCYTES 0.2 % (0-5); LYMPHOCYTES 25.9 % (15-50); MCH 28.1 pg (26.0-34.0); MCHC 33.5 g/dL (31.0-37.0); MCV 83.9 fL (80.0-100.0); MEAN PLATELET VOLUME 10.8 fL (7.4-10.4); MONOCYTES 7.8 % (2-11); NEUTROPHILS 60.8 % (40-80); PLATELET COUNT 163 10x3/uL (130-400); RBC 5.16 10x6/uL (4.20-6.10); RDW 13.9 % (11.5-14.5); WBC 4.9 10x3/uL (4.8-10.8)
[2019-11-16 13:50] LABS: CALC OSMOLALITY 273 mosm/kg (275-300); CALCIUM 9.4 mg/dL (8.5-10.1); CARBON DIOXIDE 31.1 mmol/L (21.0-32.0); CHLORIDE - SERUM 103 mmol/L (98-107); CREATININE - SERUM 1.1 mg/dL (0.6-1.3); GLUCOSE 105 mg/dL (74-106); POTASSIUM - SERUM 4.1 mmol/L (3.5-5.1); SODIUM 138 mmol/L (136-145); UREA NITROGEN 7 mg/dL (7-18); eGFR NON AFRICAN AMERICAN 72 mL/min (90-120)
[2019-11-16 13:54] LABS: ALKALINE PHOSPHATASE 72 U/L (30-120); ALT (SGPT) 55 U/L (10-68); AMYLASE - SERUM 28 U/L (25-115); BILIRUBIN - TOTAL 0.61 mg/dL (0.2-1.3); LIPASE 101 U/L (73-393); PROTEIN - SERUM 6.9 g/dL (6.4-8.2); TROPONIN-I < 0.017 ng/mL (0.000-0.060)
--- NOTE | 2019-11-16 14:00 | NUR ---
RECEIVED PT TO ROOM AT THIS TIME.
[2019-11-16 14:15] VITALS: BP 131/74
--- NOTE | 2019-11-16 14:54 | NUR ---
URINE COLLECTED AND SENT TO LAB AT THIS TIME.
[2019-11-16 15:06] VITALS: BP 122/71
[2019-11-16 15:14] LABS: BILIRUBIN NEGATIVE (NEGATIVE); GLUCOSE NEGATIVE (NEGATIVE); KETONE NEGATIVE (NEGATIVE); NITRITE NEGATIVE (NEGATIVE); UROBILINOGEN NORMAL (NORMAL)
[2019-11-16 16:35] VITALS: BP 128/63
--- NOTE | 2019-11-16 17:15 | NUR ---
RECEIVED PATIENT FROM ER. ALERT AND ORIENTED. UP WITH ASSIST. IV TO LEFT AC, NS INFUSING @ 125ML/HR. SITE PATENT WITHOUT REDNESS OR SWELLING. NO C/O PAIN. NO S/S OF ACUTE DISTRESS NOTED. VITALS WNL. DENIES ANY NEEDS AT THIS TIME. CALL LIGHT IN REACH. WILL CONTINUE TO MONITOR.
--- NOTE | 2019-11-16 18:25 | NUR ---
RESTING IN BED WITH EYES OPEN. NO C/O PAIN. NO S/S OF ACUTE DISTRESS NOTED. DENIES ANY NEEDS AT THIS TIME. CALL LIGHT IN REACH. WILL CONTINUE TO MONITOR.
--- NOTE | 2019-11-16 19:21 | NUR ---
PATIENT COMPLAINING OF ABDOMINAL PAIN. REQUESTING PAIN MEDICINE. ADMINISTERED PAIN MEDICINE PER ORDER FOR PAIN RATING OF 10/10. PATIENT TOLERATED ADMINISTRATION WELL. CALL LIGHT REMAINS CLOSE. CPOC.
[2019-11-16 20:00] VITALS: BP 125/76
[2019-11-16 20:45] LABS: APTT 38.3 SECONDS (22.8-39.4); INR 1.27 (0.85-1.17); PROTIME 15.8 SECONDS (11.6-15.0)
--- NOTE | 2019-11-17 00:32 | NUR ---
CALLED TO OBTAIN TELE PER ORDER. BOOT TRIMMER INFORMED THIS NURSE THAT THERE ARE ONLY 2 AVAILABLE AND HE WOULD HAVE TO CALL ME BACK.
[2019-11-17 04:00] VITALS: BP 106/53
[2019-11-17 06:20] LABS: BASOPHILS 0.4 % (0-2); EOSINOPHILS 4.6 % (0-7); HEMATOCRIT 39.5 % (42.0-54.0); HEMOGLOBIN 12.8 g/dL (13.5-17.5); IMMATURE GRANULOCYTES 0.2 % (0-5); MCH 27.4 pg (26.0-34.0); MCHC 32.4 g/dL (31.0-37.0); MCV 84.4 fL (80.0-100.0); MEAN PLATELET VOLUME 10.6 fL (7.4-10.4); MONOCYTES 11.8 % (2-11); PLATELET COUNT 136 10x3/uL (130-400); RBC 4.68 10x6/uL (4.20-6.10)
[2019-11-17 06:32] LABS: ALBUMIN 3.2 g/dL (3.4-5.0); ANION GAP 9.2 mmol/L (8-16); BILIRUBIN - TOTAL 0.55 mg/dL (0.2-1.3); CALCIUM 8.8 mg/dL (8.5-10.1); CARBON DIOXIDE 28.9 mmol/L (21.0-32.0); CREATININE - SERUM 1.1 mg/dL (0.6-1.3); MAGNESIUM - SERUM 1.8 mg/dL (1.8-2.4); POTASSIUM - SERUM 4.1 mmol/L (3.5-5.1); PROTEIN - SERUM 5.5 g/dL (6.4-8.2)
--- NOTE | 2019-11-17 06:55 | NUR ---
RESTING IN BED WITH EYES CLOSED. RESPIRATIONS EVEN AND UNLABORED. NO S/S OF ACUTE DISTRESS NOTED. UP WITH ASSIST. IV TO LEFT AC, NS INFUSING @ 125ML/HR. SITE PATENT WITHOUT REDNESS OR SWELLING. REFUSED SCDS. CALL LIGHT IN REACH. WILL CONTINUE TO MONITOR.
[2019-11-17 09:51] VITALS: BP 108/52
--- NOTE | 2019-11-17 12:35 | NUR ---
NS 88 ON TELEMETRY
--- NOTE | 2019-11-17 13:27 | NUR ---
I have reviewed this patient and I concur with the Shift Assessment completed by the Licensed Practical Nurse today this shift.
[2019-11-17 13:32] VITALS: BP 111/70
[2019-11-17 14:42] VITALS: Ht 175.3 cm; Wt 79.4 kg
--- NOTE | 2019-11-17 15:11 | NUR ---
PT TV REMOTE FIXED. NO NEEDS AT THIS TIME. WCTM
[2019-11-17 16:45] VITALS: BP 123/70
--- NOTE | 2019-11-17 16:52 | NUR ---
PT AWAKE AND ALERT. RECIEVED A REMOTE TO CONTROL THE TV. NO NEEDS AT THIS TIME. WCTM
[2019-11-17 20:00] VITALS: BP 123/81
--- NOTE | 2019-11-18 03:22 | NUR ---
ALERT AND ORENTED ABLE TO VOICE NEEDS AND WANT STO STAFF. RESTING IN BED WITH WATER AND CALL LIGHT IN REACH. TELEMETRY 55 SINUS EDUARD. IV TO LEFT AC WITH NS PER ORDERS. NO S/S OF DISTRESS.
[2019-11-18 03:52] VITALS: BP 120/62
[2019-11-18 06:10] LABS: BASOPHILS 0.4 % (0-2); EOSINOPHILS 5.2 % (0-7); HEMATOCRIT 40.4 % (42.0-54.0); HEMOGLOBIN 13.4 g/dL (13.5-17.5); IMMATURE GRANULOCYTES 0.2 % (0-5); LYMPHOCYTES 27.9 % (15-50); MCH 27.6 pg (26.0-34.0); MCHC 33.2 g/dL (31.0-37.0); MCV 83.3 fL (80.0-100.0); MEAN PLATELET VOLUME 10.6 fL (7.4-10.4); MONOCYTES 10.4 % (2-11); NEUTROPHILS 55.9 % (40-80); PLATELET COUNT 129 10x3/uL (130-400); RBC 4.85 10x6/uL (4.20-6.10)
[2019-11-18 06:17] LABS: ALBUMIN 3.3 g/dL (3.4-5.0); ALKALINE PHOSPHATASE 52 U/L (30-120); ALT (SGPT) 41 U/L (10-68); BILIRUBIN - TOTAL 0.62 mg/dL (0.2-1.3); CALC OSMOLALITY 284 mosm/kg (275-300); CALCIUM 8.5 mg/dL (8.5-10.1); CHLORIDE - SERUM 110 mmol/L (98-107); GLUCOSE 101 mg/dL (74-106); MAGNESIUM - SERUM 1.8 mg/dL (1.8-2.4); PROTEIN - SERUM 5.9 g/dL (6.4-8.2); SODIUM 144 mmol/L (136-145); UREA NITROGEN 6 mg/dL (7-18); eGFR NON AFRICAN AMERICAN 80 mL/min (90-120)
--- NOTE | 2019-11-18 08:33 | NUR ---
PT LAYING IN BED UPON ENTERING, ALERT AND ORIENTED X4, ADMINISTERED MEDICATION AT THIS TIME, NO DIFFICULTIES. ASSESSMENT PERFORMED. DENIES ANY NEEDS. WILL CONTINUE TO MONITOR.
[2019-11-18 09:12] VITALS: BP 120/70
--- NOTE | 2019-11-18 11:54 | NUR ---
I have reviewed this patient and I concur with the Shift Assessment completed by the Licensed Practical Nurse today this shift.
--- NOTE | 2019-11-18 11:59 | NUR ---
PT RESTING COMFORTABLY UPON ENTERING. ADMINISTERED MEDICATION, NO DIFFICULTIES. COMPLAINS OF STOMACH PAIN, WILL GIVE PRN PAIN MEDICATION. DENIES ANY NEEDS. WILL CONTINUE TO MONITOR.
[2019-11-18 13:21] VITALS: BP 128/69
--- NOTE | 2019-11-18 15:03 | NUR ---
PT OUT OF SHOWER, NEW LINENS ON BED. STARTED IV MEDICATION. RESTING COMFORTABLY. TELEMETRY PLACED BACK ON. DENIES ANY NEEDS. WILL CONTINUE TO MONITOR.
[2019-11-18 16:00] VITALS: BP 109/68
--- NOTE | 2019-11-18 16:50 | NUR ---
PT UPRIGHT IN BED UPON ENETERING, ADMINISTERED MEDICATION. DENIES ANY NEEDS. WILL CONTINUE TO MONITOR.
[2019-11-18 20:00] VITALS: BP 107/60
[2019-11-19] VITALS: BP 108/59
[2019-11-19 04:00] VITALS: BP 119/67
[2019-11-19 06:02] LABS: BASOPHILS 0.6 % (0-2); EOSINOPHILS 5.6 % (0-7); HEMOGLOBIN 12.7 g/dL (13.5-17.5); IMMATURE GRANULOCYTES 0.2 % (0-5); LYMPHOCYTES 32.8 % (15-50); MCH 27.7 pg (26.0-34.0); MCHC 33.4 g/dL (31.0-37.0); MEAN PLATELET VOLUME 10.4 fL (7.4-10.4); MONOCYTES 9.4 % (2-11); NEUTROPHILS 51.4 % (40-80); PLATELET COUNT 148 10x3/uL (130-400); RBC 4.58 10x6/uL (4.20-6.10); RDW 14.2 % (11.5-14.5); WBC 5.3 10x3/uL (4.8-10.8)
[2019-11-19 06:58] LABS: ALBUMIN 3.1 g/dL (3.4-5.0); ALKALINE PHOSPHATASE 48 U/L (30-120); ALT (SGPT) 37 U/L (10-68); BILIRUBIN - TOTAL 0.52 mg/dL (0.2-1.3); CALC OSMOLALITY 284 mosm/kg (275-300); CALCIUM 8.4 mg/dL (8.5-10.1); CARBON DIOXIDE 27.8 mmol/L (21.0-32.0); CHLORIDE - SERUM 109 mmol/L (98-107); GLUCOSE 94 mg/dL (74-106); MAGNESIUM - SERUM 1.6 mg/dL (1.8-2.4); POTASSIUM - SERUM 3.5 mmol/L (3.5-5.1); PROTEIN - SERUM 5.4 g/dL (6.4-8.2); SODIUM 144 mmol/L (136-145); eGFR NON AFRICAN AMERICAN 80 mL/min (90-120)
[2019-11-19 07:03] LABS: UREA NITROGEN 8 mg/dL (7-18)
--- NOTE | 2019-11-19 08:11 | NUR ---
RESTING IN BED WITH EYES CLOSED. RESPIRATIONS EVEN AND UNLABORED. NO S/S OF ACUTE DISTRESS NOTED. IV TO LEFT AC, NS INFUSING @ 125ML/HR. SITE PATENT WITHOUT REDNESS OR SWELLING. ON TELEMETRY 70 SR. POTASSIUM 3.5 AND MAGNESIUM 1.6 THIS AM, WILL FOLLOW ELECTROLYTE PROTOCOL. CALL LIGHT IN REACH. WILL CONTINUE TO MONITOR.
[2019-11-19 08:55] VITALS: BP 113/68
[2019-11-19 13:05] VITALS: BP 119/68
[2019-11-19] MEDS ORDERED: LEVOFLOXACIN500 MG PO (13:32)
[2019-11-19] MEDS ORDERED: FLAGYL500 MG PO (13:32)
--- NOTE | 2019-11-19 15:16 | NUR ---
I have reviewed this patient and I concur with the Shift Assessment completed by the Licensed Practical Nurse today this shift.
--- NOTE | 2019-11-19 16:11 | MORECARE ---
CASE MANAGEMENT DISCHARGE SUMMARY PATIENT: SONG MACKENZIE MARY UNIT: [id number] ADM DATE: 11/16/19 AGE: 64 : 57 SEX: M ROOM/BED: D.2236 AUTHOR: CORTEZ,DOC PHYSICIAN: REFERRING PHYSICIAN: YANETH ESCALERA MD DATE OF SERVICE: 11/19/19 Discharge Plan Patient Name: SONG MACKENZIE Facility: [facility]:[place] : 1955 Planned Disposition: Anticipated Discharge Date: Discharge Date: Expected LOS: Initial Reviewer: [email or web address] Initial Review Date: 11/19/2019 Generated: 11/19/19 5:11 pm Comments DCP- Discharge Planning Updated by [id number]: Mira Pemberton on 11/19/19 3:[address] Patient Name: SONG MACKENZIE Admission Status: ER Accout number: [id number] Admission Date: 11-16-2019 : 1955 Admission Diagnosis:DVTRCLI OF INTEST, PART UNSP, W/O PERF OR ABSCESS W/O B Attending: REJI Current LOS: 3 Anticipated DC Date: Planned Disposition: Primary Insurance: [employer] CHO[employer] PPO [employer] Discharge Planning Comments: CM met with patient at bedside after explaining CM role and obtaining verbal consent. CM discussed availability / needs of home health, REHAB and medical equipment. PATIENT DENIES ANY DISCHARGE NEEDS. IMM SIGNED AND COPY GIVEN. [employer]: Mira Pemberton DCPIA - Discharge Planning Initial Assessment Updated by [email or web address]: Mira Pemberton on 11/19/19 4:07 pm * Is the patient Alert and Oriented? Yes * PCP EUFEMIA * Pharmacy [facility] * Preadmission Environment Home with Family * ADLs Independent * Other Equipment NONE * Community resources currently utilized None * Additional services required to return to the preadmission environment? No * Can the patient safely return to the preadmission environment? Yes * Has this patient been hospitalized within the prior 30 days at any hospital? No Coverage Notice Reviewer: [id number] - Mira Pemberton Notice Issued Date-Time: 11/19/2019 16:05 Notice Type: IM Discharge Notice Notice Delivered To: Patient Relationship to Patient: Network Manager Name: Delivery Method: HAND - Hand Delivered Ce Days: Prior Verbal Notification: Recipient Understood Notice: Yes Recipient Signature: Yes Med Rec Note Co-signed by Attending: Coverage Notice Comment: Patient Name: SONG MACKENZIE Page [id number] at 1611 All edits/amendments must be made on the electronic document DICTATION DATE: 11/19/191610 CANVAS BASTER: TRICIA 11/19/191 RPT#: [id number] DC DATE: STATUS: ADM IN [facility] [address] [place] [address] END OF REPORT
--- NOTE | 2019-11-19 17:41 | NUR ---
DISCHARGED PATIENT HOME WITH VIA WHEELCHAIR. DISCONTINUED IV, CATHETER TIP INTACT. WENT OVER DISCHARGE INSTRUCTIONS WITH PATIENT, VERBALIZED UNDERSTANDING. DENIES ANYTHING FURTHER.
--- NOTE | 2019-11-20 12:59 | MORECARE ---
CASE MANAGEMENT DISCHARGE SUMMARY PATIENT: SONG MACKENZIE MARY UNIT: [id number] ADM DATE: 11/16/19 AGE: 64 : 57 SEX: M ROOM/BED: D.2236 AUTHOR: CORTEZ,DOC PHYSICIAN: REFERRING PHYSICIAN: YANETH ESCALERA MD DATE OF SERVICE: 11/20/19 Discharge Plan Patient Name: SONG MACKENZIE Facility: [facility]:[place] : 1955 Planned Disposition: Anticipated Discharge Date: Discharge Date: 11/19/2019 Expected LOS: Initial Reviewer: [email or web address] Initial Review Date: 11/19/2019 Generated: 11/20/19 1:58 pm Comments DCP- Discharge Planning Updated by [id number]: Mira Pemberton on 11/19/19 3:[address] Patient Name: SONG MACKENZIE Admission Status: ER Accout number: [id number] Admission Date: 11-16-2019 : 1955 Admission Diagnosis:DVTRCLI OF INTEST, PART UNSP, W/O PERF OR ABSCESS W/O B Attending: REJI Current LOS: 3 Anticipated DC Date: Planned Disposition: Primary Insurance: [employer] CHOICE PPO [facility] ADVANT Discharge Planning Comments: CM met with patient at bedside after explaining CM role and obtaining verbal consent. CM discussed availability / needs of home health, REHAB and medical equipment. PATIENT DENIES ANY DISCHARGE NEEDS. IMM SIGNED AND COPY GIVEN. Child Care: Mira Pemberton DCPIA - Discharge Planning Initial Assessment Updated by [id number]: Mira Pemberton on 11/19/19 4:07 pm * Is the patient Alert and Oriented? Yes * PCP EUFEMIA * Pharmacy [facility] * Preadmission Environment Home with Family * ADLs Independent * Other Equipment NONE * Community resources currently utilized None * Additional services required to return to the preadmission environment? No * Can the patient safely return to the preadmission environment? Yes * Has this patient been hospitalized within the prior 30 days at any hospital? No Coverage Notice Reviewer: [id number] - Mira Pemberton Notice Issued Date-Time: 11/19/2019 16:05 Notice Type: IM Discharge Notice Notice Delivered To: Patient Relationship to Patient: Jailer Name: Delivery Method: HAND - Hand Delivered Ce Days: Prior Verbal Notification: Recipient Understood Notice: Yes Recipient Signature: Yes Med Rec Note Co-signed by Attending: Coverage Notice Comment: Last DP export: 11/19/19 3:11 pm Patient Name: SONG MACKENZIE Page [phone] at 1259 All edits/amendments must be made on the electronic document DICTATION DATE: 11/20/19 1259 SUPERVISOR L[employer]STOCK [employer]ARD: TRICIA 11/20/19 1259 RPT#: [id number] DC DATE:11/19/19 STATUS: DIS IN [facility] [address] [place] [address] END OF REPORT
== END 2019-11-19 17:43 | disposition home or self-care (01) | DRG 392 ==
LOC: D.ER 12:03 → D.MS 15:07
PROVIDERS: Family Medicine; ADMIT Family Medicine; ATTEND Family Medicine
DX: K57.92 Diverticulitis of intestine, part unspecified, without perforation or abscess without bleeding (principal); E11.43 Type 2 diabetes mellitus with diabetic autonomic (poly)neuropathy; K31.84 Gastroparesis; I10 Essential (primary) hypertension; K21.9 Gastro-esophageal reflux disease without esophagitis; N40.0 Benign prostatic hyperplasia without lower urinary tract symptoms; M19.90 Unspecified osteoarthritis, unspecified site; G47.00 Insomnia, unspecified; F41.9 Anxiety disorder, unspecified; F32.9 Major depressive disorder, single episode, unspecified; M79.7 Fibromyalgia

== ENCOUNTER 2019-12-25 09:23 | Emergency (ER) | payer MEDICARE, OTHER ==
[~2019-12-25] VITALS: Ht 175.3 cm; Wt 79.5 kg
[~2019-12-25 09:23] MED LIST changes: +LEVOFLOXACIN500 MG PO
[2019-12-25 09:44] LABS: BASOPHILS 0.4 % (0-2); EOSINOPHILS 2.2 % (0-7); HEMATOCRIT 46.1 % (42.0-54.0); HEMOGLOBIN 15.6 g/dL (13.5-17.5); IMMATURE GRANULOCYTES 0.3 % (0-5); MCH 28.8 pg (26.0-34.0); MCHC 33.8 g/dL (31.0-37.0); MCV 85.1 fL (80.0-100.0); MEAN PLATELET VOLUME 10.6 fL (7.4-10.4); MONOCYTES 4.1 % (2-11); PLATELET COUNT 167 10x3/uL (130-400); RBC 5.42 10x6/uL (4.20-6.10); RDW 13.9 % (11.5-14.5); WBC 10.4 10x3/uL (4.8-10.8)
[2019-12-25 09:46] VITALS: Ht 175.3 cm; Wt 79.5 kg
[2019-12-25 09:54] LABS: CALC OSMOLALITY 275 mosm/kg (275-300); CALCIUM 9.4 mg/dL (8.5-10.1); CARBON DIOXIDE 30.5 mmol/L (21.0-32.0); CHLORIDE - SERUM 101 mmol/L (98-107); CREATININE - SERUM 1.3 mg/dL (0.6-1.3); GLUCOSE 114 mg/dL (74-106); POTASSIUM - SERUM 3.8 mmol/L (3.5-5.1); SODIUM 138 mmol/L (136-145); UREA NITROGEN 11 mg/dL (7-18); eGFR NON AFRICAN AMERICAN 59 mL/min (90-120)
[2019-12-25 10:02] LABS: ALBUMIN 4.2 g/dL (3.4-5.0); ALKALINE PHOSPHATASE 66 U/L (30-120); ALT (SGPT) 22 U/L (10-68); AMYLASE - SERUM 28 U/L (25-115); BILIRUBIN - TOTAL 0.63 mg/dL (0.2-1.3); LIPASE 113 U/L (73-393); PROTEIN - SERUM 7.3 g/dL (6.4-8.2)
[2019-12-25 10:03] LABS: TROPONIN-I < 0.017 ng/mL (0.000-0.060)
[2019-12-25 10:25] LABS: BILIRUBIN NEGATIVE (NEGATIVE); KETONE NEGATIVE (NEGATIVE); NITRITE NEGATIVE (NEGATIVE); UROBILINOGEN NORMAL mg/dL (< 2)
[2019-12-25] MEDS ORDERED: PEPCID40 MG PO (12:49)
[2019-12-25] MEDS ORDERED: FLORASTOR250 MG PO (12:49)
[2019-12-25] MEDS ORDERED: ZOFRAN ODT4 MG/UDTAB PO (12:49)
[2019-12-25] MEDS ORDERED: LEVSIN/ANASP0.125 MG PO (12:49)
[2019-12-25 12:56] VITALS: BP 118/78
== END 2019-12-25 12:58 | disposition home or self-care (01) ==
LOC: D.ER 09:23
PROVIDERS: Family Medicine
DX: R10.9 Unspecified abdominal pain (principal); G89.29 Other chronic pain; K21.9 Gastro-esophageal reflux disease without esophagitis

== ENCOUNTER 2020-09-14 08:00 | Emergency (ER) | payer MEDICARE, OTHER ==
[~2020-09-14] VITALS: Ht 175.3 cm; Wt 79.5 kg
[~2020-09-14 08:00] MED LIST changes: +FAMOTIDINE10 MG PO; +PEPCID40 MG PO
[2020-09-14 08:02] VITALS: BP 132/88; Ht 175.3 cm; Wt 79.5 kg
[2020-09-14 08:19] LABS: BASOPHILS 0.7 % (0-2); HEMATOCRIT 50.7 % (42.0-54.0); HEMOGLOBIN 16.8 g/dL (13.5-17.5); LYMPHOCYTES 11.6 % (15-50); MCH 27.3 pg (26.0-34.0); MCHC 33.1 g/dL (31.0-37.0); MCV 82.4 fL (80.0-100.0); MEAN PLATELET VOLUME 9.2 fL (7.4-10.4); MONOCYTES 7.6 % (2-11); NEUTROPHILS 78.1 % (40-80); RBC 6.15 10x6/uL (4.20-6.10); RDW 14.2 % (11.5-14.5); WBC 11.3 10x3/uL (4.8-10.8)
[2020-09-14 08:20] LABS: PLATELET COUNT 212 10x3/uL (130-400)
[2020-09-14 08:28] LABS: CALC OSMOLALITY 281 mosm/kg (275-300); CALCIUM 10.7 mg/dL (8.5-10.1); CARBON DIOXIDE 28.4 mmol/L (21.0-32.0); CHLORIDE - SERUM 101 mmol/L (98-107); CREATININE - SERUM 1.2 mg/dL (0.6-1.3); GLUCOSE 121 mg/dL (74-106); POTASSIUM - SERUM 3.6 mmol/L (3.5-5.1); SODIUM 140 mmol/L (136-145); UREA NITROGEN 17 mg/dL (7-18); eGFR NON AFRICAN AMERICAN 65 mL/min (90-120)
[2020-09-14 08:36] LABS: ALBUMIN 4.9 g/dL (3.4-5.0); ALKALINE PHOSPHATASE 76 U/L (30-120); ALT (SGPT) 21 U/L (10-68); AMYLASE - SERUM 52 U/L (25-115); BILIRUBIN - TOTAL 0.58 mg/dL (0.2-1.3); LIPASE 235 U/L (73-393); PROTEIN - SERUM 8.6 g/dL (6.4-8.2)
[2020-09-14 08:37] LABS: TROPONIN-I < 0.017 ng/mL (0.000-0.060)
[2020-09-14 12:47] LABS: BILIRUBIN NEGATIVE (NEGATIVE); KETONE NEGATIVE (NEGATIVE); NITRITE NEGATIVE (NEGATIVE); UROBILINOGEN NORMAL mg/dL (< 2)
[2020-09-14] MEDS ORDERED: LOPERAMIDE HCL2 MG PO (13:28)
== END 2020-09-14 16:17 | disposition home or self-care (01) ==
LOC: D.ER 08:00
PROVIDERS: Emergency Medicine
DX: R19.7 Diarrhea, unspecified (principal); R10.31 Right lower quadrant pain; M79.7 Fibromyalgia; I10 Essential (primary) hypertension; K21.9 Gastro-esophageal reflux disease without esophagitis